=== PATIENT | female | born 1955 | race Caucasian/White ===

== ENCOUNTER 2018-04-28 10:36 | Outpatient (CLI) | payer OTHER, SELFPAY ==
[2018-04-28 11:27] LABS: HCT 46.8 % (36.0-46.0); HGB 15.7 g/dL (12.0-15.5); Mean Corp. HGB Concentration 33.5 g/dL (32.0-36.0); Mean Corpuscular Volume 98.3 fL (80-95); Mean Platelet Volume 9.2 fL (8.0-11.0); Platelet Count 224 x1000/uL (130-400); RBC 4.76 m/cumm (4.00-5.20); RBC Distribution Width 12.7 % (11.7-14.6); White Blood Cell Count 8.71 k/cumm (4.4-10.8)
[2018-04-28 12:31] LABS: PHENYTOIN (DILANTIN) 21.4 ug/mL (10.0-20.0)
[2018-04-28 12:32] LABS: ALT 37 U/L (12-78); AST 35 U/L (15-37); Albumin 4.6 g/dL (3.4-5.0); Alkaline Phosphatase 100 U/L (46-116); Anion Gap 6.5 mmol/L (3-11); BUN 12 mg/dL (7-18); Bilirubin, Total 0.4 mg/dL (0.2-1.0); CO2 33.5 mmol/L (21.0-32.0); CREATININE 0.59 mg/dL (0.55-1.02); Calcium 9.5 mg/dL (8.5-10.1); Chloride 99 mmol/L (98-107); Cholesterol 245 mg/dL (50-200); Glucose 112 mg/dL (70-100); HDL Cholesterol 124 mg/dL (40-60); LDL CHOLESTEROL 98 mg/dL (<100); Potassium 4.4 mmol/L (3.5-5.1); Sodium 139 mmol/L (136-145); Total Protein 8.1 g/dL (6.4-8.2); Triglyceride 75 mg/dL (30-150)
== END 2018-04-28 10:56 ==
PROVIDERS: PCP Nurse Practitioner; Visit Provider Nurse Practitioner
DX: G40.909 Epilepsy, unspecified, not intractable, without status epilepticus (principal); Z51.81 Encounter for therapeutic drug level monitoring; Z79.899 Other long term (current) drug therapy; E78.00 Pure hypercholesterolemia, unspecified
CPT/HCPCS: 36415; 80053; 80061; 83721; 85027; 80185

== ENCOUNTER 2018-05-23 11:32 | Outpatient (CLI) | payer OTHER, SELFPAY ==
--- NOTE | 2018-05-23 09:30 | DI.RAD_ITS ---
SYMPTOM/DIAGNOSIS: COUGH, SOB, LOW 02 SAT, UPPER RESPIRATORY INFECTION, J06.9 PA AND LATERAL CHEST: No priors for comparison. Heart size and pulmonary vasculature are within normal limits. The lungs are hyperinflated consistent with underlying COPD. No focal consolidating infiltrates, effusions or pneumothoraces are identified. On the frontal view, there is an ovoid density projected over the right ninth rib. This may represent a nipple shadow. Lungs are otherwise clear. Degenerative changes are seen in the spine. IMPRESSION: 1. COPD. No acute pulmonary process. 2. Ovoid density seen on the frontal view of the chest which may reflect a nipple shadow. A repeat frontal view of the chest with nipple markers is recommended for further evaluation.
== END 2018-05-23 11:52 ==
PROVIDERS: PCP Nurse Practitioner; Visit Provider Family Medicine
DX: J06.9 Acute upper respiratory infection, unspecified (principal); R05 Cough; R06.02 Shortness of breath; J44.9 Chronic obstructive pulmonary disease, unspecified
CPT/HCPCS: 87449; 71046

== ENCOUNTER 2019-03-20 14:00 | Outpatient (CLI) | payer OTHER, SELFPAY ==
[2019-03-20 14:40] LABS: HCT 42.1 % (36.0-46.0); HGB 13.8 g/dL (12.0-15.5); Mean Corp. HGB Concentration 32.8 g/dL (32.0-36.0); Mean Corpuscular Hemoglobin 32.8 pg (27.0-33.0); Mean Platelet Volume 9.3 fL (8.0-11.0); Platelet Count 212 x1000/uL (130-400); RBC 4.21 m/cumm (4.00-5.20); RBC Distribution Width 12.7 % (11.7-14.6); White Blood Cell Count 7.31 k/cumm (4.4-10.8)
--- NOTE | 2019-03-20 14:50 | DI.RAD_ITS ---
EXAM: XR ABDOMEN FLAT UPRIGHT INDICATION: Abdominal pain, R10.9, abdominal distention/bloating, R14.0. COMPARISON: ABD/PELVIS WO AND W CONTRAST from 10/30/2012 XR CHEST 2V PA AND LATERAL from 05/23/2018 TECHNIQUE: 2D digital imaging was performed. FINDINGS: Hyperinflation is noted at the lung bases. There is no evidence of free air. There is increased sto ol seen in the colon, greatest in the right and transverse colon. There is no small bowel dilatation or gastric dilatation. Vascular calcifications are seen. The liver again appears enlarged. It was noted to be enlarged on a previous CT from 2012. IMPRESSION: Increased quantity of stool. No acute abnormality. Hepatomegaly.
[2019-03-20 15:37] LABS: ALT 37 U/L (14-59); AST 31 U/L (15-37); Albumin 4.2 g/dL (3.4-5.0); Alkaline Phosphatase 95 U/L (46-116); BUN 21 mg/dL (7-18); Bilirubin, Direct 0.06 mg/dL (0.00-0.20); Bilirubin, Total 0.1 mg/dL (0.2-1.0); CREATININE 0.65 mg/dL (0.55-1.02); Calcium 8.6 mg/dL (8.5-10.1); Chloride 105 mmol/L (98-107); Glucose 96 mg/dL (74-106); Lipase 144 U/L (73-393); Potassium 4.5 mmol/L (3.5-5.1); Sodium 143 mmol/L (136-145); Total Protein 7.3 g/dL (6.4-8.2)
== END 2019-03-20 14:20 ==
PROVIDERS: PCP Nurse Practitioner; Visit Provider Nurse Practitioner
DX: R10.9 Unspecified abdominal pain (principal); R14.0 Abdominal distension (gaseous); R16.0 Hepatomegaly, not elsewhere classified; R56.9 Unspecified convulsions; Z51.81 Encounter for therapeutic drug level monitoring
CPT/HCPCS: 36415; 80053; 80076; 83690; 85027; 87338; 74019; 80185

== ENCOUNTER 2019-03-22 02:23 | Outpatient (CLI) | payer OTHER, SELFPAY ==
--- NOTE | 2019-03-22 08:15 | DI.US_ITS ---
EXAM: US ABDOMEN CLINICAL HISTORY: abdominal pain, bloating, abd distension, gaseous TECHNIQUE: Ultrasound abdomen performed using standard protocol. COMPARISON: ABDOMEN ULTRASOUND from 06/02/2009 ABD PELVIS TRANSVAG from 10/02/2012 FINDINGS: LIVER: Normal. There is hepatopetal flow through the portal vein. GALLBLADDER: No evidence of cholelithiasis. No evidence of wall thickening. No pericholecystic fluid identified. KIDNEYS: Kidneys are symmetric in size. No evidence of renal calculi. No evidence of hydronephrosis. No renal mass or cyst identified. BILIARY SYSTEM: Common bile duct measures 3 millimeters. No intrahepatic biliary ductal dilation. BARTLETT'S SIGN: Negative. PANCREAS: Normal where visualized. SPLEEN: Not enlarged. ABDOMINAL AORTA AND IVC: Visualized portions normal caliber. ASCITES: None seen. IMPRESSION: Normal sonographic appearance of the upper abdomen.
== END 2019-03-22 02:43 ==
PROVIDERS: PCP Nurse Practitioner; Visit Provider Nurse Practitioner
DX: R10.9 Unspecified abdominal pain (principal); R14.0 Abdominal distension (gaseous)
CPT/HCPCS: 76700

== ENCOUNTER 2019-03-22 07:30 | Outpatient (REF) | payer OTHER, SELFPAY ==
[2019-03-27 14:41] LABS: Helicobacter pylori Ag, Feces Negative (Negative)
== END 2019-03-22 07:50 ==
LOC: LBN 07:30
PROVIDERS: PCP Nurse Practitioner; Visit Provider Nurse Practitioner
DX: R10.9 Unspecified abdominal pain (principal); R14.0 Abdominal distension (gaseous)
CPT/HCPCS: 87338

== ENCOUNTER → 2020-04-23 02:05 | Outpatient (CLI) | payer OTHER, SELFPAY ==
[2020-04-23 09:02] LABS: HCT 43.1 % (36.0-46.0); HGB 14.6 g/dL (11.2-15.7); MCH 33.1 pg (27.0-33.0); MCHC 33.9 % (32.0-36.0); MCV 97.7 fL (80-95); MPV 9.4 fL (8.0-11.0); Platelet Count 221 10^3/uL (130-400); RBC 4.41 10^6/uL (3.93-5.22); RDW 11.9 % (11.7-14.6); WBC 7.28 10^3/uL (4.4-10.8)
[2020-04-23 09:28] LABS: PHENYTOIN (DILANTIN) 24.2 ug/mL (10.0-20.0)
[2020-04-23 09:29] LABS: Albumin 4.1 g/dL (3.4-5.0); Alkaline Phosphatase 78 U/L (46-116); BUN 14 mg/dL (7-18); Bilirubin, Total 0.4 mg/dL (0.2-1.0); CO2 32.7 mmol/L (21.0-32.0); CREATININE 0.79 mg/dL (0.55-1.02); Calcium 8.7 mg/dL (8.5-10.1); Calculated LDL 91 mg/dL (<100); Chloride 100 mmol/L (98-107); Cholesterol 214 mg/dL (<200); Glucose 123 mg/dL (74-106); HDL Cholesterol 112 mg/dL (40-60); Potassium 4.8 mmol/L (3.5-5.1); Sodium 136 mmol/L (136-145); Total Protein 7.2 g/dL (6.4-8.2); Triglyceride 55 mg/dL (<150)
[2020-04-23 09:30] LABS: ALT 32 U/L (14-59); AST 23 U/L (15-37); Anion Gap 3.3 mmol/L (3-11)
== END ==
PROVIDERS: PCP Nurse Practitioner; Visit Provider Nurse Practitioner
DX: R56.9 Unspecified convulsions (principal); Z13.220 Encounter for screening for lipoid disorders; Z51.81 Encounter for therapeutic drug level monitoring; Z79.899 Other long term (current) drug therapy
CPT/HCPCS: 36415; 80053; 80061; 85027; 80185

== ENCOUNTER 2020-06-03 02:24 | Outpatient (CLI) | payer BC, SELFPAY ==
[2020-06-04 12:45] LABS: COVID-19 RT-PCR UVMMC Result Negative (Negative)
== END 2020-06-03 02:25 | disposition home or self-care (01) ==
LOC: LBO 02:24
PROVIDERS: PCP Nurse Practitioner; Visit Provider Surgery
DX: Z11.52 Encounter for screening for COVID-19 (principal); Z01.818 Encounter for other preprocedural examination
CPT/HCPCS: U0003

== ENCOUNTER 2020-06-06 06:07 | Day surgery (SDC) | payer BC, SELFPAY ==
[2020-06-06 06:20] VITALS: BP 163/95; PULSE 92; RESP 18; TEMP 37; O2SAT 95
[2020-06-06] MEDS: Lactated Ringers 1,000 ML 80 ML IV (06:47)
--- NOTE | 2020-06-06 08:16 | PDOC.DSDIS_ITS ---
Discharge Plan Disposition Patient Disposition: HOME Condition: Good Discharge Details Reason For Visit: colon scope Attending Provider: Jenna Watson Primary Care Provider: Danuta Rosales Home Meds and New Rx's Prescriptions: Continued lisinopril 10 mg tablet 10 mg PO DAILY Qty: 30 RF: 2 lactulose 10 gram/15 mL (15 mL) solution 30 ml PO BID PRN (Reason: constipation) Qty: 600 RF: 3 phenytoin sodium extended [Dilantin Extended] 100 mg capsule See Rx Instructions PO .COMPLEX Qty: 120 RF: 6 Discontinued polyethylene glycol 3350 17 gram/dose powder 238 g PO ONCE Qty: 238 RF: 0 bisacodyl [Dulcolax (bisacodyl)] 5 mg tablet,delayed release (DR/EC) 5 mg PO ONCE Qty: 4 RF: 0 Discharge Instructions Additional Instructions: Findings:diverticula Follow up: repeat scope in 10 yrs time. Please call if you develop: fevers >101.5 Nausea or Vomiting Abdominal pain that is not transient DAY SURGERY UNIT POST COLONOSCOPY INSTRUCTIONS 1. Because there will be medication in your system for the next 24 hours, you may feel a little sleepy. Your coordination will be affected. Therefore: a. Do not drive or operate dangerous equipment for 24 hours. b. Do not drink alcohol beverages for 24 hours (not even beer). c. Plan to go home and rest for the day. 2. Generally there are no restrictions on your activity after a day or so has gone by, but you may feel a bit fatigued for a few days. 3 After you arrive home you may have a light meal and return to a normal diet as you can tolerate it without feeling sick to your stomach. 4. After surgery, you may feel pain or discomfort. This should be only transient, but if it persists please contact your doctor. 5. If there are any questions regarding the findings of your procedure, please f eel free to contact your doctor. 6. If you are unable to contact your doctor with a problem, contact the hospital at [phone]. 7. Continue all your regular medications unless directed otherwise. I understand the above instructions and have no questions. Signature of Patient or Responsible Adult Escort Date/Time Name of Responsible Adult Escort Signature of Nurse Date/Time DIVERTICULAR DISEASE OVERVIEW ? A diverticulum is a pouch-like structure that can form through points of weakness in the muscular wall of the colon (ie, at points where blood vessels pass through the wall). Diverticulosis affects men and women equally. The risk of diverticular disease increases with age. It occurs throughout the world but is seen more commonly in developed countries. WHAT IS DIVERTICULAR DISEASE? Diverticulosis ? Diverticulosis merely describes the presence of diverticula. Diverticulosis is often found during a test done for other reasons, such as flexible sigmoidoscopy, colonoscopy, or barium enema. Most people with diverticulosis have no symptoms and will remain symptom free for the rest of their lives. A person with diverticulosis may have diverticulitis, or diverticular bleeding. Diverticulitis ? Inflammation of a diverticulum (diverticulitis) occurs when there is thinning and breakdown of the diverticular wall. This may be caused by increased pressure within the colon or by hardened particles of stool, which can become lodged within the diverticulum. The symptoms of diverticulitis depend upon the degree of inflammation present. The most common symptom is pain in the left lower abdomen. Other symptoms can include nausea and vomiting, constipation, diarrhea, and urinary symptoms such as pain or burning when urinating or the frequent need to urinate. Diverticulitis is divided into simple and complicated forms. ?Simple diverticulitis, which accounts for 75 percent of cases, is not associated with complications and typically responds to medical treatment without surgery. ?Complicated diverticulitis occurs in 25 percent of cases and usually requires surgery. Complications associated with diverticulitis can include the following: ?Abscess ? a localized collection of pus ?Fistula ? an abnormal tract between two areas that are not normally connected (eg, bowel and bladder) ?Obstruction ? a blockage of the colon ?Peritonitis ? infection involving the space around the abdominal organ ?Sepsis ? overwhelming body-wide infection that can lead to failure of multiple organs Diverticular bleeding ? Diverticular bleeding occurs when a small artery located within a diverticulum is eroded and bleeds into the colon. Diverticular bleeding usually causes painless bleeding from the rectum. In approximately 50 percent of cases, the person will see maroon or bright red blood with bowel movements. Is bleeding with a bowel movement normal? ? It is not normal to see blood in a bowel movement; this can be a sign of several conditions, most of which are not serious (eg, hemorrhoids) but some of which are serious and require immediate treatment. Anyone who sees blood after a bowel movement should consult with their healthcare provider to determine if further testing or evaluation is needed. DIVERTICULOSIS AND DIVERTICULITIS DIAGNOSIS ? Diverticulosis is often found during tests performed for other reasons. ?Barium enema ? This is an x-ray study that uses barium in an enema to view the outline of the lower intestinal tract. This is an older test and has been largely replaced by computed tomography (CT) scan. ?Flexible sigmoidoscopy ? This is an examination of the inside of the sigmoid colon with a thin, flexible tube that contains a camera. ?Colonoscopy ? This is an examination of the inside of the entire colon. ?CT scan ? A CT scan is often used to diagnose diverticulitis and its complications. If diverticulitis (not just diverticulosis) is suspected, the above three tests should not be used because of the risk of perforation. TREATMENT Diverticulosis ? People with diverticulosis who do not have symptoms do not require treatment. However, most clinicians recommend increasing fiber in the diet, which can help to bulk the stools and possibly prevent the development of new diverticula, diverticulitis, or diverticular bleeding. Fiber is not proven to prevent these conditions in all patients but may help to control recurrent episodes in some. Increase fiber ? Fruits and vegetables are a good source of fiber. Fiber content of packaged foods can be calculated by reading the nutrition label. Seeds and nuts ? Patients with diverticular disease have historically been advised to avoid whole pieces of fiber (such as seeds, corn, and nuts) because of concern that these foods could cause an episode of diverticulitis. However, this belief is completely unproven. We do not suggest that patients with diverticulosis avoid seeds, corn, or nuts. Diverticulitis ? Treatment of diverticulitis depends upon how severe your symptoms are. Home treatment ? If you have mild symptoms of diverticulitis (mild abdominal pain, usually left lower abdomen), you can be treated at home with a clear liquid diet and oral antibiotics. However, if you develop one or more of the following signs or symptoms, you should seek immediate medical attention: ?Temperature >100.1?F (38?C) ?Worsening or severe abdominal pain ?An inability to tolerate fluids Hospital treatment ? If you have moderate to severe symptoms, you may be hospitalized for treatment. During this time, you are not allowed to eat or drink; antibiotics and fluids are given into a vein. If you develop an abscess of the colon, you may require drainage of the abscess (usually performed by placing a drainage tube across the abdominal wall) or by surgically opening the affected area. Surgery ? If you develop a generalized infection in the abdomen (peritonitis), you will usually require an emergency operation. A two-part operation may be necessary in some cases. ?The first operation involves removal of the diseased colon and creation of a colostomy. A colostomy is an opening between the colon and the skin, where a bag is attached to collect waste from the intestine. The lower end of the colon is temporarily sewed closed to allow it to heal. ?Approximately three to six months later, a second operation is performed to reconnect the two parts of the colon and close the opening in the skin. You are then able to empty your bowels through the rectum. Sometimes patients require up to a year to recover from the first operation, depending on how sick they were. In non-emergency situations, the diseased area of the colon can be removed and the two ends of the colon can be reconnected in one operation, without the need for a colostomy. Surgery versus medical therapy ? An operation to remove the diseased area of the colon may be necessary if you do not improve with medical therapy. After an episode of uncomplicated diverticulitis, elective surgery is generally not required as the risk of another attack or requiring emergency surgery is low. However, patients with persistent symptoms attributable to diverticulitis, a history of complicated diverticulitis, or a compromised immune system should be evaluated for possible surgery to prevent another attack. In such patients, another attack has been associated with a higher risk of complications or . Of course, the decision will also depend in part upon your other medical conditions and ability to undergo surgery. In many cases, an elective operation can be performed laparoscopically, using small incisions, rather than the typical vertical (up and down) abdominal incision. Laparoscopic surgery usually allows you to recover more quickly and shortens the hospital stay. After diverticulitis resolves ? After an episode of diverticulitis resolves, if you have not had a recent colonoscopy, the entire length of the colon should be evaluated to determine the extent of disease and to rule out the presence of abnormal lesions such as polyps or cancer. Recommended tests include colonoscopy, barium enema and sigmoidoscopy, or CT colonography. Diverticular bleeding ? Most cases of diverticular bleeding resolve on their own. However, some people will need further testing or treatment to stop bleeding, which may include a colonoscopy, angiography (a treatment that blocks off the bleeding artery), bleeding scan, or surgery. DIVERTICULAR DISEASE PROGNOSIS Diverticulosis ? Over time, diverticulosis may cause no problems or it may cause episodes of bleeding and/or diverticulitis. Approximately 15 to 25 percent of people with diverticulosis will develop diverticulitis, while 5 to 15 percent will develop diverticular bleeding. Diverticulitis ? Approximately 85 percent of people with uncomplicated diverticulitis will respond to medical treatment, while approximately 15 percent of patients will need an operation. After successful treatment for a first attack of diverticulitis, one-third of patients will remain asymptomatic, one- third will have episodic cramps without diverticulitis, and one-third will go on to have a second attack of diverticulitis. The prognosis tends to remain similar following a second attack of diverticulitis. Only 10 percent of people remain symptom-free after a second attack. Subsequent attacks tend to be of similar severity, not increasing in severity as previously believed. High Fiber Diet What is Dietary Fiber? All fiber comes from plants, bushes, lydia or trees. Of course, the ones that we eat provide us with fruits, vegetables and grains. There are many different types of fiber but the three that are most important to the health of the body are: Insoluble Fiber This fiber does not dissolve in water, nor is it fermented by the bacteria residing in the colon. Rather, it retains water and in so doing, helps to promote a larger, bulkier and more regular bowel activity. This, in turn, may be important in preventing disorder such as diverticulosis and hemorrhoids, and in sweeping out certain toxins and cancer causing carcinogens. Sources of insoluble fiber are: ? whole grain wheat and other whole grains ? corn bran, including popcorn, unflavored and unsweetened ? nuts and seeds ? potatoes and the skins from most fruits from trees such as apples, bananas and avocados ? many green vegetables such as green beans, zucchini, celery and cauliflower ? some fruit plants such as tomatoes and kiwi Soluble Fiber These fibers are fermented or used by the colon bacteria as a food source or nourishment. When these good bacteria grow and thrive, many health benefits occur in both the colon and the body. Soluble fiber is present in some degree in most edible plant foods, but the ones with the most soluble fiber include: ? legumes such as peas and most beans, including soybeans ? oats, rye and barley ? many fruits such as berries, plums, apples bananas and pears ? certain vegetables such as broccoli and carrots ? most root vegetables ? psyllium husk supplement products Prebiotic Soluble Fiber These are relatively newly discovered soluble plant fibers. The technical name for this fiber is inulin or fructan. When these soluble fibers are fermented by the good colon bacteria, some further significant health benefits have been shown to occur by research in many medical centers. These soluble prebiotic fibers occur in significant amounts in: ? asparagus ? yams ? onions ? garlic ? bananas ? leeks ? agave ? chicory and other root vegetables such as [place] artichokes ? wheat, rye and barley (smaller amounts) Benefits of a High Fiber Diet The health benefits of a high fiber diet, consumed on a regular basis and reaching recommended amounts (below), are now fairly well-defined. There are some additional benefits in the early research stage with the prebiotic soluble fibers. What is now known regarding a high fiber diet include: Bowel Regularity A high fiber diet promotes regularity with a softer, bulkier and regular stool pattern. This decreases the chance of hemorrhoids, diverticulosis and perhaps colon cancer. Cholesterol and Reduced Triglycerides The soluble fibers are the ones that will reduce cholesterol levels when used on a regular basis. Psyllium husk and prebiotic soluble fiber will also reduce cholesterol. They may also reduce the incidence of coronary heart disease. Oats, flax seeds and legumes or beans are the recommended fibers. Colon Polyps and Cancer It is still not certain if a high fiber diet helps prevent colon cancer. Considerable research suggests that this may occur. Certainly it makes sense to increase regularity and so speed the movement of cancer causing carcinogens through the bowel. In addition, reducing a heavy meat diet reduces the bile flow from the liver in a favorable way. This, too, reduces the amount of carcinogens that reach and are manufactured in the colon. Finally, a high fiber diet, including prebiotic soluble fiber, increases the integrity and health of the wall of the colon. The risk of cancer may be reduced. Colon Wall Integrity A high fiber diet changes the bacterial makeup of the colon toward a more favorable balance. For instance, it is known that those people with obesity, diabetes type 2 and inflammatory bowel disease have a predominance of bad bacteria in the colon. This, in turn, may render the bowel wall weak and allow bacteria and, indeed, even toxins to seep through. A high fiber diet with a modest reduction in animal and meat products may return the bacterial makeup to a more positive balance. This, in particular, has been seen when the soluble fiber prebiotics are added to the diet. Blood Sugar Soluble fiber such as in legumes (beans), oats and in prebiotic fibers slows the absorption of blood sugar and so helps regulate the sugar in the blood. Insoluble fiber on a regular basis is associated with reduced risk of type 2 diabetes. Weight Loss High fiber diets are more filling and give a sense of fullness sooner than an animal and meat based diet does. In addition, the soluble prebiotic fibers have been shown to turn off the hunger hormones produced in the wall of the gut and to increase the hormones that give a sense of fullness. Those hormones are made in the wall of the gut. New medical research has shown that the bacterial makeup in the colon in overweight people is abnormal to the extent that they manufacture and absorb almost twice the number of calories through the colon wall as do normals. Prebiotic fibers (below) will help change this hormonal balancein a favorable way. Bacteria and the Function of the Colon The colon finishes the digestive process. Hopefully, the waste products move through in a nice regular manner. Insoluble fibers help this process by retaining water and so producing a bulkier, softer stool, which is easy to pass. The additional role of the colon is to provide a home for an enormous number of micro-organisms, mostly bacteria. Recent research has shown that there are over 1,000 species of bacteria with a total bacterial count ten times the number of cells in the body. These bacteria play a major role in keeping the colon wall itself healthy. In addition, these good bacteria produce a very strong immune sy stem for the body. They significantly increase calcium absorption and bone density. They provide other documented benefits. It is the soluble fibers in the diet that are so effective in stimulating the growth of good colon bacteria. How Much is Enough? The amount of fiber in food is measured in grams. National nutritional authorities recommend the following amounts of dietary fiber daily. Under Age 50 Over Age 50 Men 38 grams 30 grams Women 25 grams 21 grams For a week or so, it is best to tally the amount of fiber you are consuming. Boxed and packaged foods will have the amount of fiber per serving on the nutrition label. Which Fibers and Which Foods are Best? As noted, healthy fiber is only found in plants. The three major categories are whole grains, fruits and vegetables. Whole Grains Wheat, oats, barley, wild or brown rice, amaranth, buckwheat, bulgur, corn, millet, quinoa, rye, sorghum, teff and triticals. By far, wheat, oats and wild or brown rice are most common. Always buy whole grain products. White bread, baked goods and rolls almost always are made from wheat flour. Wheat flour is white because most of the fiber, vitamins and other nutrients have been removed. Try not buy enriched grains. What this means is that simple white flour has had vitamins added to it by the transformation specialist. The word, enriched, implies a good and healthy product. On the contrary, enriched means that most of the fiber has been removed and a few vitamins added. Fruits Fruits come from trees such as apple and pear or from bushes or lydia. You s hould eat a wide variety of fruits, preferably with every meal. In many cases, the skin of a fruit such as apple will contain much of the insoluble fiber while the pulp contains most of the soluble fiber. To the extent possible, buy organic fruits as these will have little or no pesticides. Always wash fruit. Vegetables Eat a wide variety of vegetables. They should be a mainstay of lunch and dinne rs. Frozen vegetables retain as much nutrition and fiber as fresh vegetables. As with fruit, try to buy organic to reduce any residual pesticide ingestion. Wash fresh vegetables thoroughly. Cruciferous vegetables such as broccoli, [place] sprouts and cauliflower contain certain chemicals such as sulforaphane. This substance has very strong anti-cancer properties and should be eaten frequently. Legumes, Beans, Peas and Soybeans These vegetables have plenty of soluble fiber and should be part of a varied vegetable intake. Beans, in particular, contain a certain type of fiber that may lead to harmless gas or bloating. Nuts and Seeds These are rich sources of fiber and are a good substitute for sweets such as candies and baked sweet goods. While nuts and seeds are rich in fiber, they also contain vegetable fat and so can and do add calories. Read the Labels As noted, fresh and frozen foods are usually better. They have good nutrition and few, if any, chemicals added to them. When buying packaged foods and, in particular grains, look for three things: ? The first word on the label should be whole, such as whole wheat or whole grain. ? Check out the calories and the amount of fiber in a serving. ? How many and what other additives or chemicals are added. Fewer is always better. Do you know what each additive does? Some are added not for the benefit of the merchandise buyer but rather for manufacturers. These could and do include sugar, artificial flavor, chemicals to prevent oxidation and spoilage, emulsifiers to blend the product. You have to be a marble polisher hand. Fiber Facts, Nuggets and Pearls ? For breakfast you can easily get the day started well by using a high fiber, whole grain cereal. Check the labels. Add fruit such as blueberries and bananas. If you are an egg eater, use whole wheat or grain toast. Adding wheat germ gives you a good fiber kick. ? Always use whole grain or wheat with rolls and sandwiches. Does your fast food store not have them? Perhaps you look elsewhere. Eating an occasional black weems or veggie burger provides variety. ? Snacks should consist of fruit and/or nuts. While nuts are loaded with fiber, they are an energy rich food, meaning they have a lot of calories in a small packet. ? Fruit juices should contain pulp. Clear juices such as clear orange, pear or apple juice contain little fiber and have a lot of fructose. Prune juice is usually high in fiber. ? Homemade soups ? adding fresh or frozen vegetables to a chicken or vegetable stock is a good way to start homemade soup. ? Salads ? adding cooked and then chilled vegetables provide great flavoring to almost any salad. Remember, a valladares salad has lots of cooked corn in it. Small slices of apples or oranges and nuts such as chopped walnuts or sliced almonds always adds taste, variety and fiber to almost any salad. ? Fruit ? Try to eat fruit of some type with almost every meal. ? Rethink how you place the various foods on your dinner plate. Reducing the portions of the meat or animal food portion to the side with equal or more portions of vegetables, legumes and fruits portion always allows for more fiber. There was never anything magic about making the meat or animal food portion the main part of the dinner plate. Eating from smaller plates can, over time, trick your mind and longterm habit of using a dinner plate. Again, there is nothing magic in an 11, 12, or 13 inch dinner plate. Fiber Supplements There are a variety of fiber supplements available on the food or pharmacy shelves. Psyllium This soluble plant fiber has been used in [place] for over 2,000 years. It is a soluble fiber with mucilage in it. This acts to retain a lot of water and also is fermented by colon bacteria. When 7 grams a day are used, it does lower cholesterol. Metamucil in various forms is psyllium. Methyl Cellulose All the cellulose products come from finely ground wood chips which are then treated in a variety of ways such as boiling in acids. Methyl cellulose is an insoluble fiber which does dissolve in water. It is also an emulsifier, meaning it blends oils and water. Citrucel is methyl cellulose (MC). MC may not be appropriate for Crohn?s disease or ulcerative colitis as several medical studies have shown that certain emulsifiers dissolve the mucous lining of the colon in animals prone to Crohn?s disease. This then allows bacteria to invade the underlying tissue. Inulin Inulin is a soluble prebiotic fiber found in many foods and which are fermented mostly in the left side of the colon. It is available in a supplement as generic inulin and in Fiber Choice. Oligofructose FOS These are also prebiotic fibers. They are fermented very quickly in the right side of the colon. Prebiotin This product is a combination of oligofructose, which feeds the bacteria in the right side of the colon and inulin, which does the same in the left side of the colon. There seems to be a benefit for this particular formula based on medical research. Prebiotic Soluble Fiber These may be the healthiest of all the soluble fibers. They grow in many plants and have had a great deal of research done on them in the last 10-15 years. These fibers are found in asparagus, yams and other root vegetables such as chicory, garlic, onion, leeks and in smaller amounts in wheat. This research has shown the following: ? Increase in good and decrease in bad colon bacteria ? Increase calcium absorption and enhanced bone mass ? Enhanced immune system ? Appetite and weight control by changing the hormone appetite signals to the brain ? May decrease colon cancer incidence ? Reduce or correct a leaky colon Eating a wide variety of plant food up to the recommended amount will likely give you enough prebiotic fiber. Supplements such as Prebiotin can be added to the diet. Short Chain Fatty Acids (SCFA) Some rather remarkable research findings have shown that one of the benefits of ingesting a lot of soluble fiber, in particular the prebiotic ones, results in larger amounts of SCFAs in the colon. These SCFAs are made by the good bacteria in the colon such as Bifidobacter and Lactobacillus. These small molecules have been shown to do the following: ? Enhance the health and integrity of the colon wall ? Provide nourishment for the cells that actually line the colon ? Increases the acidity of the colon which is a very real health benefit ? Stabilize blood sugar for diabetics ? Reduce blood cholesterol and triglyceride ? Significantly enhance immunity ? May be a benefit for Crohn?s disease and ulcerative colitis patients Fiber and Gas Everyone has intestinal gas and that is a good thing. It means that bacteria, hopefully the good ones, are thriving. The normal amount of flatus passed each day depends on sex and what is eaten. The normal number of flatus is 10-20 t imes a day. When the bacteria that make intestinal gases are growing, it also means that other good bacteria are using the same fibers to grow and produce multiple health benefits, including the production of healthy short-chain fatty acids. These substances are produced quietly in the colon and produce many health-related outcomes. Soluble fiber should always be used in a gradual manner. If too much is consumed at any one time, then excess, but harmless, intestinal gas can occur. People with irritable bowel syndrome are particularly prone to bloating and mild cramping. In this instance, soluble fiber in the diet or supplement should be used in small doses and increased gradually. Finally, prebiotic fibers tend to cause the production of short-chain fatty acids which acidify the colon. This, in turn, reduces or stops the growth of bacteria that make the smelly hydrogen sulfide gases that produce noxious flatus. People who consume many vegetables with prebiotics or take a prebiotic fiber supplement often have non-odoriferous flatus. Fiber and Irritable Bowel Syndrome Irritable bowel syndrome (IBS) is one of the most common disorders of the lower digestive tract. The symptoms of IBS can be quite varied. They can be a mix of several symptoms such as constipation, diarrhea, crampy abdominal discomfort, bloating and gas. An attack of IBS can be triggered by emotional tension and anxiety, poor dietary habits and certain medications. It is now known that infections in the intestine can lead to long-term IBS symptoms. Increased amounts of fiber in the diet can help relieve the symptoms of irritable bowel syndrome by producing soft, bulky stools. This helps to normalize the time it takes for the stool to pass through the colon. Recent medical research with newer techniques has shown some surprising and dramatic findings for IBS patients. Specifically, there is a very significant and abnormal shift of bacteria from those that provide health benefits to those bad bacteria that we really do not want in the gut. The technical name for this bad group of bacteria is called Firmicutes. Along with this abnormal bacterial collection, there is a smoldering low-grade inflammation in the gut wall that may contribute to symptoms. The goal for IBS patients should be to gradually increase the soluble dietary fibers in the diet so as to promote the growth of good bacteria and so suppress the bad ones along with the associated inflammation. IBS patients need to be careful of the amount of soluble fiber they consume. The reason for this is that, while the good colon bacteria thrive on these fibers and produce health benefits, other gas-forming bacteria may generate excessive but harmless gas and subsequent bloating. Thus, soluble plant fibers or a dietary prebiotic supplement should be taken in small initial doses and then gradually increased to tolerance. Fiber and Colon Polyps/Cancer Colon cancer is a major health problem. This disease is most common in Western cultures. It is not seen very often in rural cultures where the diet is mostly plant based. Usually, colon cancer starts out as a colon polyp, a benign mushroom-shaped growth. In time it grows, and in some people it becomes cancerous. Colon cancer is usually always curable if polyps are removed when found or if surgery is performed at an early stage. It is now known that people can inherit the risk of developing colon cancer, but diet is important, too. As noted, there is a very low rate of colon cancer in residents of countries where grains are unprocessed and retain their fiber. It seems that in the Western world, cancer-containing agents (carcinogens) remain in contact with the colon wall for a longer time and in higher concentrations. So, a large bulky stool may act to dilute these carcinogens by moving them through the bowel more quickly. Less carcinogenic exposure to the colon may mean fewer colon polyps and less cancer. A very current review of the entire world?s literature on the effect of fiber on colon polyps and cancer prevention has shown rather clearly that for every 10 grams of fiber added to the diet, there is a 10% reduction in incidence of colon cancer. So the recommended 30 gram fiber diet would result in a 30% less chance of getting these tumors. There are also substances produced in the colon by the good bacteria that seem to retard certain pre-cancer factors from developing. They are called short- chain fatty acids (SCFA). See above for description of SCFAs. A high fiber diet increases these substances. So, the combination of dietary fiber and the production of short-chain fatty acids have a clear health benefit. Fiber and Diverticulosis Prolonged, vigorous contraction of the colon over a long period of time may result in diverticulosis. This increased pressure causes small and, eventually, larger ballooning pockets to form. These pockets by themselves cause no problem. However, sometimes they become infected (diverticulitis) or even break open (perforate) causing infection or inflammation within the abdomen (peritonitis). A high fiber diet increases the bulk in the stool and thereby reduces the pressure within the colon. By so doing, the formation of pockets may be reduced or possibly even stopped. In the past, many physicians were fearful that seeds as in tomatoes, nuts or berries were harmful and could get inside these pockets and rattle around, causing damage. We now know that this has never been the case and that these foods contain lots of fiber and are actually beneficial for diverticulosis patients. Certain bulking agents such as psyllium are traditional types of bulk producing supplements. Psyllium is a soluble fiber. Combining it with insoluble fiber as in wheat bran or corn bran (no gluten) can enhance this bulking effect even more. A product containing a prebiotic, psyllium and wheat bran is probably a very good combination for bowel regularity. Prebiotin Regularity/Diverticulosis is one such product. Activity:: no lifting over 10#'s or strenuous activity x 24 hrs Diet:: small light meals x 24 hrs Discharge Orders Discharge Orders: Discharge Order (Routine); Ordered 06/06/20 Ordered By: Jenna Watson DS: Diagnosis Discharge Diagnosis (1) Diverticula of colon: Status: Acute
--- NOTE | 2020-06-06 08:16 | W.COLOREPORT ---
Date of service: 06/06/20 Time of Service: 08:17 Colonoscopy Report Date of procedure: 06/06/20 Pre-op diagnosis general: screen Post-op diagnosis procedure note: other (divertic) Surgeon: Jenna Watson Anesthesia proc note operative: GETA Estimated blood loss (mL): 0 Pathology: none sent Complications: None Disposition: same day Prep: Miralax/Dulcolax Retraction Time: 8mins Procedure Description: After informed consent was obtained the patient was taken to the procedure room and placed in a left decubitous position. Monitors were applied and a time out was done. The patients name, date of , procedure, allergies to medications and metal in their body was reviewed. The patient was then sedated. Once sedated and comfortable a rectal exam was done. External exam was normal. Internal exam revealed a normal sphincter tone and no palpable masses. The scope was then introduced and retrofelexed. no internal hemorrhoids were identified. The scope was then advanced to the cecum difficulty. The TI and appendiceal orifice were identified. The prep was w/out. The scope was then slowly retracted over 8 minutes back into the rectum. Polyps were removed at . She has a few small diverticula confined to the sigmoid colon. There is no signs of active bleeding or infection. There is no AVMs or polyps apparent. The scope was removed and the patient was woken up and taken back to Same day surgery in stable condition. The patient tolerated the procedure well and there were no immediate complications. Follow up: The patient should follow up in 10 years unless they develop changes in bowel habits or other new gastrointestinal complaints.
[2020-06-06 08:50] VITALS: BP 144/75; PULSE 64; RESP 16; TEMP 36.6; O2SAT 95
== END 2020-06-06 09:15 | disposition home or self-care (01) ==
PROVIDERS: PCP Nurse Practitioner; Visit Provider Surgery
PROC: 0DJD8ZZ Inspection of Lower Intestinal Tract, Via Natural or Artificial Opening Endoscopic (ICD-10-PCS; CPT 45378; principal; 2020-06-06 07:30)
DX: Z12.11 Encounter for screening for malignant neoplasm of colon (principal); K57.30 Diverticulosis of large intestine without perforation or abscess without bleeding; Z80.0 Family history of malignant neoplasm of digestive organs; I10 Essential (primary) hypertension
CPT/HCPCS: 45378

== ENCOUNTER 2020-08-07 01:56 | Outpatient (CLI) | payer BC, SELFPAY ==
[2020-08-08 17:44] LABS: COVID-19 RT-PCR UVMMC Result Negative (Negative)
== END 2020-08-07 01:57 | disposition home or self-care (01) ==
LOC: LBO 01:56
PROVIDERS: PCP Nurse Practitioner; Visit Provider Nurse Practitioner
DX: Z20.822 Contact with and (suspected) exposure to COVID-19 (principal)
CPT/HCPCS: U0003

== ENCOUNTER 2021-05-24 14:00 | Emergency (ER) | payer BC, SELFPAY ==
[2021-05-24] VITALS (35 sets, daily range): BP systolic 133–168; BP diastolic 64–139; PULSE 76–93; RESP 16–20; TEMP 36.9–37.1; O2SAT 95–97
--- NOTE | 2021-05-24 14:15 | DI.CT_ITS ---
Exam(s) CT ABDOMEN PELVIS W EXAM: CT ABDOMEN PELVIS W CLINICAL HISTORY: abd pain and distention. TECHNIQUE: Imaging Protocol: Axial computed tomography images with coronal and sagittal reformatted images were created and reviewed CONTRAST MATERIAL: Intravenous: Omnipaque 80cc Oral: None COMPARISON: US ABDOMEN ULTRASOUND from 06/02/2009 US ABD PELVIS TRANSVAG from 10/02/2012 FINDINGS: VISUALIZED LUNG BASES: No nodules nor pleural effusions evident. ABDOMEN: There is no ascites. LIVER: Mildly prominent in size. No steatosis. No focal lesions evident. GALLBLADDER/BILIARY: No obvious gallbladder pathology. Mild dilatation of the CBD above the pancreat ic head. No calculi therein. PANCREAS: No evidence of pancreatic mass nor dilatation of the pancreatic duct. SPLEEN: Spleen is not enlarged. No obvious intrasplenic lesions. Splenic and portal veins are paten t. ADRENALS: Right adrenal gland unremarkable. Diffuse enlargement and haziness of the left adrenal gla nd. KIDNEYS:Bilateral extrarenal pelves, more prominent on the right side. No renal cysts nor solid matthew l masses evident.. Small calculi are seen in both kidneys. No true hydronephrosis nor hydroureter. No calculi in the urinary bladder. ABDOMINAL AORTA: Calcified but not enlarged. Common iliac arteries are calcified but not enlarged. External iliac arteries are also heavily calcified. Same for the common femoral arteries. LYMPH NODES:There is no retroperitoneal nor paraaortic adenopathy. ABDOMINAL WALL: No evidence of significant anterior abdominal wall nor inguinal hernia. GI: There is no evidence of bowel obstruction, free air, nor abscess. PELVIS: GI: No evidence of appendicitis.No evidence of sigmoid diverticulitis. LYMPH NODES: There is no intrapelvic nor inguinal adenopathy. REPRODUCTIVE: The uterus is surgically absent. There are no abnormal adnexal masses nor free fluid. URINARY BLADDER: Uniformly thickened bladder wall. OSSEOUS: No significant osseous lesions. Advanced disc space narrowing at L4-5 level. No listhesis. No significant osseous lesions. IMPRESSION: 1. Small calculi are seen in both kidneys. No evidence of calculi in the ureters and none in the uri nary bladder. 2. Mild dilatation of the CBD. No obvious calculus therein. No pancreatic head mass evident and no dilatation of the pancreatic duct. 3. Uterus is surgically absent. 4. Mild hepatomegaly. No focal hepatic lesions. RADIATION DOSE DELIVERED: 460.2mGy.cm Total DLP DATA REPOSITORY: All CT scans at this facility are submitted to the National Radiology Data Registry (NRDR) Dose Index Registry (DIR) with the [employer] (ACR). RADIATION OPTIMIZATION: All CT scans at this facility use at least one of these dose optimization te chniques: automated exposure control; mA and/or kV adjustment per patient size (includes targeted exa ms where dose is matched to clinical indication); or iterative reconstruction.
[2021-05-24] MEDS: Normal Saline 1,000 ML 1000 ML IV (14:54)
[2021-05-24 14:56] LABS: Abs Immature Grans 0.03 10^3/uL (0.0-0.06); Absolute Basophil Count 0.06 10^3/uL (0.0-0.2); Absolute Eosinophil Count 0.08 10^3/uL (0.0-0.7); Absolute Lymphocyte Count 1.81 10^3/uL (1.2-3.4); Absolute Monocyte Count 0.65 10^3/uL (0.1-0.8); Absolute Neutrophil Count 5.01 10^3/uL (1.2-6.7); Basophils % 0.8; HCT 39.5 % (36.0-46.0); HGB 13.1 g/dL (11.2-15.7); Immature Grans % 0.4; Lymphocytes % 23.7; MCH 33.2 pg (27.0-33.0); MCHC 33.2 % (32.0-36.0); Monocytes % 8.5; Neutrophils % 65.6; Nucleated RBC 0 %; Platelet Count 216 10^3/uL (130-400); RBC 3.95 10^6/uL (3.93-5.22); RDW 11.9 % (11.7-14.6); RDW-SD 44.3 fL; WBC 7.64 10^3/uL (4.4-10.8)
[2021-05-24 15:07] LABS: Lipase 102 U/L (73-393)
[2021-05-24 15:10] LABS: ALT 33 U/L (14-59); AST 24 U/L (15-37); Alkaline Phosphatase 76 U/L (46-116); Anion Gap 5.1 mmol/L (3-11); BUN 19 mg/dL (7-18); Bilirubin, Total 0.2 mg/dL (0.2-1.0); CO2 31.9 mmol/L (21.0-32.0); CREATININE 0.8 mg/dL (0.55-1.02); Calcium 8.9 mg/dL (8.5-10.1); Chloride 99 mmol/L (98-107); Glucose 142 mg/dL (74-106); Potassium 4.3 mmol/L (3.5-5.1); Sodium 136 mmol/L (136-145); Total Protein 7.1 g/dL (6.4-8.2)
--- NOTE | 2021-05-24 15:31 | ED.GENADUL_ITS ---
Discharge Plan Disposition Patient Disposition: HOME Condition: Stable Discharge Details Clinical Impression: Abdominal pain, Diverticulosis of colon Primary Care Provider: Danuta Rosales ED Provider: Tamanna Wellington Home Meds and New Rx's Prescriptions: No Action phenytoin sodium extended [Dilantin Extended] 100 mg capsule See Rx Instructions PO .COMPLEX Qty: 120 RF: 12 lisinopril 20 mg tablet 20 mg PO DAILY Qty: 30 RF: 12 Discharge Instructions Instructions: Diverticulitis Diet (ED), Abdominal Pain (ED) Additional Instructions: The CT scan showed a dilation of the common bile duct. There is also some colonic diverticulosis. Also had some moderate constipation. Please follow-up with your primary care provider on Tuesday regarding these results to schedule an outpatient test called MRCP. Clear liquids for the next 48 to 72 hours and then advance to a bland diet as tolerated. Bananas rice apples toast daily from anything fried, fatty and dairy. Follow up with primary care provider in 3-5 days. Return to ED sooner if any worsening or concerns. Increase oral fluids. Referrals: Danuta Rosales NP [Primary Care Provider] - 5 days (Possible need for outpatient MRCP) Discharge Data Discharge Date/Time-TO BE ENTERED AT DEPARTURE: 05/24/21 16:39 Medical Decision Making <Carlos A Wolfe NP - Last Filed: 05/25/21 09:32> Patient presenting to the emergency department for chief complaint of abdominal pain. Patient states this has been ongoing for years but has had acute worsening for the past couple days. She states associated diarrhea and abdominal bloating that occurs after eating. She denies any fever chills, chest pain, difficulty breathing, or other symptoms. Physical exam shows slightly distended abdomen with diffuse nonfocal tenderness and guarding to the right lower quadrant and the left upper quadrant. Bowel sounds are hyperactive. Plan to check labs and CT image patient's abdomen. Patient is refusing pain medication at this time and states that she would rather just have work p erformed with no medication. 1515 -review of labs is reassuring with no emergent findings noted. Patient pending CT imaging. Patient continuing to refuse pain medication when reassessed. 1600- patient has had CT imaging performed and pending results. pt remains in stable condition. <Tamanna Wellington - Last Filed: 05/24/21 18:31> Care assumed from provider (Niall Wolfe NP) Please see their initial HPI, PE, and documentation. Discussed patient details and case and pending workup and disposition. Patient is hemodynamically stable, and alert and oriented. CT abdomen pelvis: IMPRESSION: 1. Nonspecific dilation of the distal CBD measuring up to 9 mm. Consider correlation with MRCP if clinically warranted. 2. Urinary bladder findings most probably related to partial under distension. Consider mild cystitis in the appropriate clinical setting. 3. Bloating and moderate constipation without bowel obstruction. 4. No other acute abdominopelvic pathology is identified. 5. Incidental findings as detailed above. Thank you for allowing us to participate in the care of your patient. Dictated and Authenticated by: Melvin Shields MD Discussed results with patient who verbalizes understanding. Patient does have a history of diverticulosis. Patient does have a primary care provider Danuta Rosales placed on a care management list for follow-up within the next week regarding the MRCP. Patient is alert and oriented ambulatory in no acute distress in the room. I did discuss diet and home care, verbalized u nderstanding. HPI <Carlos A Wolfe NP - Last Filed: 05/25/21 09:32> General Mode of arrival: ambulatory . Date/Time Provider Initiated Documentation: 05/24/21 14:01 . Limitations to Documentation: no limitations . Information obtained by: patient . History of Present Illness 66 year old F presents to the emergency department with the chief complaint of Abdominal pain, with intensity rated at 9. Quality is described as aching, and is localized to the abdomen. Patient reports no radiation. Patient started experiencing this year(s) (With worsening over the last 2 days) and it has been constant. No relieving factors improve symptom(s), Eating worsens symptoms . Patient notes nausea/vomiting. Patient did receive the following treatments prior to arrival, none Related Data Home Medications Medication Instructions Recorded Confirmed Dilantin Extended 100 mg capsule See Rx Instructions PO .COMPLEX 06/10/20 05/24/21 #120 cap NS lisinopril 20 mg tablet 20 mg PO DAILY #30 tab 06/10/20 06/10/20 Previous Rx's Medication Instructions Recorded Dilantin Extended 100 mg capsule See Rx Instructions PO .COMPLEX 06/10/20 #120 cap NS lisinopril 20 mg tablet 20 mg PO DAILY #30 tab 06/10/20 Allergies Allergy/AdvReac Type Severity Reaction Status Date / Time tetracycline Allergy Mild Rash Verified 05/24/21 14:10 cephalexin monohydrate Allergy Unknown Verified 05/24/21 14:10 [From Keflex] General Stated Complaint: Abd Prob JEANNINE: 3 Review of Systems <Cralos A Wolfe NP - Last Filed: 05/25/21 09:32> Constitutional Constitutional: Denies chills, Denies fever(s) and Reports poor appetite Cardiovascular Cardiovascular: Denies chest pain and Denies dyspnea Respiratory Respiratory: Denies cough and Denies dyspnea Gastrointestinal Gastrointestinal: Reports as per HPI, Reports abdominal pain, Denies melena, Reports bloating, Denies hematochezia, Denies change in bowel habits, Denies constipation, Reports cramping, Denies heartburn, Reports diarrhea, Reports nausea and Denies vomiting Genitourinary Genitourinary: Denies hematuria, Denies urinary incontinence, Denies urinary hesitancy and Denies urinary urgency Integumentary/Breasts Skin/Breast: Denies rash PFSH <Carlos A Wolfe NP - Last Filed: 05/25/21 09:32> All Active Problems (Updated 05/24/21 @ 16:29 by Tamanna Wellington) Abdominal pain (Acute) Diverticulosis of colon (Acute) Lipoma of right lower extremity (Acute) Fatigue (Acute) Feels cold (Acute) Smoker (Acute) Lung cancer screening declined by patient (Acute) Vaccine refused by patient (Acute) Diverticula of colon (Acute) Abdominal pain (Acute) Abdominal distention (Acute) Screening for cholesterol level (Acute) Colon cancer screening (Acute) Abdominal bloating (Acute) Mammogram declined (Acute) Family history of colon cancer (Acute) Essential hypertension (Acute) Macrocytosis (Chronic 02/18/14) B12 NL 2009 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 states I had abnormal blood vessels, i had 2 seizues which was 20 years ago and johnie been dilantin every since, and havent had a seizre History of colonoscopy (~06/06/20) Hx of elbow surgery Hx of shoulder surgery Family History Mother Angina pectoris Father Dementia Angina pectoris Social History Smoking/Tobacco Use Status: Current every day Smoking risk assessment performed?: Yes Alcohol Intake: current Alcohol Intake frequency: 3 or more drinks per day Alcohol type: beer Drug use: Never Substance use type: does not use Household members: spouse Number of Children: 4 What is your relationship status?: Panel score (0-1 are the most socially isolated patients): 1 Do you feel safe at home: Yes Do you feel safe in your relationship?: Yes Exam <Carlos A Wolfe NP - Last Filed: 05/25/21 09:32> Const General: cooperative Orientation: alert, awake and oriented x3 Resp Effort & Inspection: normal respiratory effort and able to speak in complete sentences Auscultation: clear to auscultation bilaterally Cardio Rate: regular rate Rhythm: regular rhythm Heart Sounds: S1 normal and S2 normal GI Palpation: soft, no hepatosplenomegaly, not firm, guarding in the RLQ and in the LUQ, no masses, no pulsatile masses, not rigid, no splenomegaly and tender other (difuse) Auscultation: hyperactive bowel sounds Back/Spine/Pelvis Back: no CVA tenderness Neuro General: patient alert, patient awake, patient oriented x3, gait normal and moves all extremities Course <Carlos A Wolfe NP - Last Filed: 05/25/21 09:32> Vital Signs Vital signs: Vital Signs Temperature 37.1 C 05/24/21 14:04 Pulse 93 H 05/24/21 14:04 Respiratory Rate 16 05/24/21 14:04 Blood Pressure 168/67 H 05/24/21 14:04 Pulse Oximetry 97 05/24/21 14:04 Temperature 37.1 C 05/24/21 14:04 Temperature Source Tympanic 05/24/21 14:04 Pulse 93 H 05/24/21 14:04 Respiratory Rate 16 05/24/21 14:04 Respiratory Effort 05/24/21 14:12 Blood Pressure 168/67 H 05/24/21 14:04 Blood Pressure Position Supine 05/24/21 14:04 Pulse Oximetry 97 05/24/21 14:04 Oxygen Delivery Method Room Air 05/24/21 14:04 Oxygen Flow Rate 0 05/24/21 14:04 Pain Level 9 05/24/21 14:04 Lab/Test Results Lab/Test Results: Laboratory Tests Range/Units 05/24/21 05/24/21 05/24/21 14:48 14:48 14:48 WBC (4.4-10.8) 10^3/uL 7.64 RBC (3.93-5.22) 10^6/uL 3.95 Hgb (11.2-15.7) g/dL 13.1 Hct (36.0-46.0) % 39.5 MCV (80-95) fL 100.0 H MCH (27.0-33.0) pg 33.2 H MCHC (32.0-36.0) % 33.2 RDW (11.7-14.6) % 11.9 Plt Count (130-400) 10^3/uL 216 MPV (8.0-11.0) fL 9.0 Immature Gran % 0.4 Neutrophils % 65.6 Lymphocytes % 23.7 Monocytes % 8.5 Eosinophils % 1.0 Basophils % 0.8 Nucleated RBC % % 0 Absolute Neutrophils (1.2-6.7) 10^3/uL 5.01 Absolute Lymphocytes (1.2-3.4) 10^3/uL 1.81 Absolute Monocytes (0.1-0.8) 10^3/uL 0.65 Absolute Eosinophils (0.0-0.7) 10^3/uL 0.08 Absolute Basophils (0.0-0.2) 10^3/uL 0.06 Sodium (136-145) mmol/L 136 Potassium (3.5-5.1) mmol/L 4.3 Chloride (98-107) mmol/L 99 Carbon Dioxide (21.0-32.0) mmol/L 31.9 Anion Gap (3-11) mmol/L 5.1 BUN (7-18) mg/dL 19 H Creatinine (0.55-1.02) mg/dL 0.8 Estimated GFR/1.73 m2 (mL/min/1.73m2) >= 60.00 Glucose (74-106) mg/dL 142 H Calcium (8.5-10.1) mg/dL 8.9 Magnesium (1.8-2.4) mg/dL 2.0 Total Bilirubin (0.2-1.0) mg/dL 0.2 AST (15-37) U/L 24 ALT (14-59) U/L 33 Alkaline Phosphatase (46-116) U/L 76 Total Protein (6.4-8.2) g/dL 7.1 Albumin (3.4-5.0) g/dL 4.0 Lipase (73-393) U/L 102 Sign Out <Carlos A Wolfe NP - Last Filed: 05/25/21 09:32> Sign Out Data: Sign Out Comment: Patient pending CT imaging results and disposition based upon those results. Last updated by Carlos A Wolfe NP at 05/24/21 16:10 PAWSS <Carlos A Wolfe NP - Last Filed: 05/25/21 09:32> Have you Been Recently Intoxicated or Drunk Within the Last 30 days?: No Have you Ever Experienced Previous Episodes of Alcohol Withdrawal?: No Have you ever Experienced Withdrawal Seizures?: No Have you ever Experienced Delirium Tremens(DT)s?: No Have you ever undergone Alcohol Rehabilitation Treatment (i.e, inpt ot outpatient treatment programs)?: No Have you ever Experienced Blackouts?: No Have you ever Combined Alcohol with other Downers within the last 90 days?: No Have you ever Combined Alcohol with any other Substance of Abuse during the last 90 days?: No Positive Blood Alcohol level on Presentation? [PCS.BAL]: No Evidence of Increased Autonomic Activity (i.e. HR>120, tremor, sweating, agitation, nausea)?: No Result: 0
--- NOTE | 2021-05-24 15:40 | SUR.PHASEI ---
Pt in CT at present.
[2021-05-24] MEDS: Omnipaque 350 MG/ML 100 ML BTL IV (16:00)
[2021-05-24] MEDS: Normal Saline Flush 10 ML SYR IVP (16:01)
--- NOTE | 2021-05-24 16:16 | DI.VRAD_ITS ---
PROCEDURE INFORMATION: Exam: CT Abdomen And Pelvis With Contrast Exam date and time: 05/24/2021 2:30 PM Age: 66 years old Clinical indication: Other: Abd pain and distention TECHNIQUE: Imaging protocol: Computed tomography of the abdomen and pelvis with contrast. Radiation optimization: All CT scans at this facility use at least one of these dose optimization techniques: automated exposure control; mA and/or kV adjustment per patient size (includes targeted exams where dose is matched to clinical indication); or iterative reconstruction. Contrast material: OMNIPAQUE 350; Contrast volume: 80 ml; Contrast route: INTRAVENOUS (IV); COMPARISON: US ABDOMEN 03/22/2019 8:39 AM FINDINGS: Lungs: Visualized lung bases are clear. Diaphragm: A small hiatal hernia is present. Liver: There is enlargement of the liver, measuring 18 cm. The liver is otherwise unremarkable. Gallbladder and bile ducts: Dilation to the distal CBD measuring 9 mm. No radiopaque intraluminal filling defects appreciated within the CBD. Minimal intrahepatic biliary ductal dilation. Gallbladder is unremarkable. Pancreas: Normal. No ductal dilation. Spleen: Normal. No splenomegaly. Adrenal glands: There is diffuse bilateral adrenal enlargement, nonspecific but most likely related to acute illness or senile in etiology. Kidneys and ureters: There are multiple right renal collecting system calcifications. There are multiple left renal collecting system calcifications. Bilateral extrarenal pelvises. The kidneys are otherwise unremarkable. The ureters are normal. Stomach and bowel: Diffusely air-filled bowel. No bowel wall thickening. Diffuse colonic diverticulosis. There is excessive colonic stool content. Appendix: A normal appendix is identified. Intraperitoneal space: No free fluid, fluid collections, or pneumoperitoneum. Retroperitoneal space: No acute abnormalities in the retroperitoneal space. Vasculature: The vasculature demonstrates diffuse marked atherosclerotic calcification. Lymph nodes: No retroperitoneal, pelvic, or mesenteric adenopathy. Urinary bladder: Mild urinary bladder wall thickening, most probably related to partially under distended state. Reproductive: There has been a hysterectomy. Bones/joints: No acute skeletal pathology. Mild multilevel degenerative changes of the spine, as manifested by multilevel anterior osteophytes and multilevel decrease in intervertebral disc space. Soft tissues: No acute body wall soft tissue findings. IMPRESSION: 1. Nonspecific dilation of the distal CBD measuring up to 9 mm. Consider correlation with MRCP if clinically warranted. 2. Urinary bladder findings most probably related to partial under distension. Consider mild cystitis in the appropriate clinical setting. 3. Bloating and moderate constipation without bowel obstruction. 4. No other acute abdominopelvic pathology is identified. 5. Incidental findings as detailed above. Dictated and Authenticated by: Melvin Hamilton MD. Ordering:GAGE Strauss MD
--- NOTE | 2021-05-24 16:32 | NUR.NOTE ---
Nursing Note: PT INFO GIVEN TO CARE MANAGEMENT FOR FOLLOW UP WITHIN A WEEK TO BE SEEN BY HER PCP FOR AN MRCP. MICHAELA, ED
== END 2021-05-24 16:39 | disposition home or self-care (01) ==
PROVIDERS: Nurse Practitioner Family; Emergency Provider Registered Nurse Emergency; PCP Nurse Practitioner
DX: R10.9 Unspecified abdominal pain (principal); K57.32 Diverticulitis of large intestine without perforation or abscess without bleeding
CPT/HCPCS: 36415; 80053; 83690; 96360; 99285; 74177; 83735; 85025; 99283; J3490

== ENCOUNTER 2021-05-27 13:07 | Outpatient (REF) | payer BC, SELFPAY ==
--- NOTE | 2021-05-27 11:18 | PAPNONF_PTH ---
PATIENT: Barby Dugan LOC: [facility] U#:[id number] AGE/SX: 66/F ROOM: RE05/27/[address]: Danuta Rosales APRN : 1955 BED: DIS: 05/27/2021 SPEC #: [id number] RECD: 05/27/21 17:32 STATUS: JUANITA REVicki #: [id number] SARAH: 05/27/21 11:[address]: Danuta Rosales DEPT: [facility] Cytology RECD BY: Makenna Tylre Tissues: 1 - BODY FLUID CYTO(SPUTUM/URINE)UV Procedures: BODY FLUID CYTO(URINE/SPUTUM) Comments: [id number] (TOTAL VOLUME = 80 ml) (40 ml URINE & 40 ml CYTOLYT ADDED IN 2 CONTAINERS)
== END 2021-05-27 13:08 | disposition home or self-care (01) ==
LOC: LBN 13:07
PROVIDERS: PCP Nurse Practitioner; Referring Provider Nurse Practitioner; Visit Provider Nurse Practitioner
DX: N32.89 Other specified disorders of bladder (principal)
CPT/HCPCS: 87086; 88104

== ENCOUNTER 2021-06-02 00:22 | Outpatient (CLI) | payer BC, SELFPAY ==
--- NOTE | 2021-06-02 06:49 | DI.MRI_ITS ---
Exam(s) MR ABDOMEN WO EXAM: MR ABDOMEN WO CLINICAL HISTORY: abdominal pain, dilated CBD,r10.9,k83.8 TECHNIQUE: Multiplanar multisequence MRA of the Abdomen was performed. COMPARISON: CT CT ABDOMEN PELVIS W from 05/24/2021 FINDINGS: Liver: Note is made of a 1.1 cm simple cyst associated with the left lobe of the liver. No follow-up is recommended. No solid hepatic masses identified. Pancreas: Unremarkable. Gallbladder and Bile Ducts: Unremarkable. There is mild smooth dilatation of the mid common bile duct up to 9 mm. No intraluminal mass is identified. The common hepatic duct measures up to [address] Adrenals: The right adrenal gland is unremarkable. There is stable unremarkable enlargement of the l eft adrenal gland. No discrete mass is seen. Kidneys: Unremarkable. Spleen: Unremarkable. Bowel: There is diverticulosis seen in the sigmoid colon. No evidence of acute diverticulitis. Aorta: Unremarkable. No evidence of an aneurysm. Soft Tissues: Unremarkable. Bone: There is a diffuse disc bulge at L3-L4 causing [id number] central spinal canal stenosis. Lymph Nodes: Unremarkable. IMPRESSION: 1. Mild dilatation of the mid common bile duct up to 9 mm. No intraluminal mass is identified. 2. No evidence of a pancreatic mass is seen. No intrahepatic biliary ductal dilatation is present. 3. If further imaging is warranted an ERCP should be considered. 4. Degenerative disc disease at L3-L4 causing [id number] central spinal canal stenosis. DATA REPOSITORY:
== END 2021-06-02 00:42 ==
PROVIDERS: PCP Nurse Practitioner; Visit Provider Nurse Practitioner
DX: K83.8 Other specified diseases of biliary tract (principal); R10.12 Left upper quadrant pain; K76.89 Other specified diseases of liver; R14.0 Abdominal distension (gaseous)
CPT/HCPCS: 74181

== ENCOUNTER 2021-09-23 10:44 | Outpatient (REF) | payer BC, SELFPAY | END 2021-09-23 10:45 | disposition home or self-care (01) | LOC: LBN 10:44 | PROVIDERS: PCP Nurse Practitioner; Visit Provider Internal Medicine | DX: J40 Bronchitis, not specified as acute or chronic (principal) | CPT/HCPCS: 87070; 87205 ==

== ENCOUNTER 2022-02-10 09:08 | Outpatient (REF) | payer BC, SELFPAY | END 2022-02-10 09:09 | disposition home or self-care (01) | LOC: LBN 09:08 | PROVIDERS: PCP Nurse Practitioner; Visit Provider Nurse Practitioner | DX: R30.0 Dysuria (principal) | CPT/HCPCS: 87086 ==

== ENCOUNTER 2022-02-24 03:28 | Outpatient (CLI) | payer BC, SELFPAY ==
[2022-02-24 07:43] LABS: HCT 40.5 % (36.0-46.0); HGB 13.4 g/dL (11.2-15.7); MCH 33.4 pg (27.0-33.0); MCHC 33.1 % (32.0-36.0); MCV 101 fL (80-95); MPV 8.9 fL (8.0-11.0); Platelet Count 208 10^3/uL (130-400); RBC 4.01 10^6/uL (3.93-5.22); RDW 12.1 % (11.7-14.6); RDW-SD 45.6 fL; WBC 8.43 10^3/uL (4.4-10.8)
[2022-02-24 08:54] LABS: ALT 34 U/L (14-59); AST 27 U/L (15-37); Alkaline Phosphatase 88 U/L (46-116); Anion Gap 2.6 mmol/L (3-11); BUN 19 mg/dL (7-18); Bilirubin, Total 0.3 mg/dL (0.2-1.0); CO2 34.4 mmol/L (21.0-32.0); CREATININE 0.7 mg/dL (0.55-1.02); Calcium 8.9 mg/dL (8.5-10.1); Calculated LDL 88 mg/dL (<100); Chloride 98 mmol/L (98-107); Cholesterol 220 mg/dL (<200); Estimated GFR 95.92 (mL/min/1.73m2); Glucose 105 mg/dL (74-106); HDL Cholesterol 122 mg/dL (40-60); Potassium 4.5 mmol/L (3.5-5.1); Sodium 135 mmol/L (136-145); TSH (W/Ref FT4) 1.52 uIU/mL (0.36-3.74); Total Protein 7.5 g/dL (6.4-8.2); Triglyceride 52 mg/dL (<150)
[2022-02-24 09:45] LABS: PHENYTOIN (DILANTIN) 24.9 ug/mL (10.0-20.0)
== END 2022-02-24 03:29 | disposition home or self-care (01) ==
LOC: LBO 03:28
PROVIDERS: Absent Provider Nurse Practitioner; PCP Nurse Practitioner; Referring Provider Nurse Practitioner; Visit Provider Nurse Practitioner
DX: I10 Essential (primary) hypertension (principal); R44.8 Other symptoms and signs involving general sensations and perceptions; G40.909 Epilepsy, unspecified, not intractable, without status epilepticus; Z51.81 Encounter for therapeutic drug level monitoring; Z79.899 Other long term (current) drug therapy
CPT/HCPCS: 36415; 80053; 80061; 85027; 80185; 84443

== ENCOUNTER 2022-07-21 11:27 | Outpatient (CLI) | payer BC, SELFPAY ==
--- NOTE | 2022-07-21 11:15 | DI.RAD_ITS ---
Exam(s) XR KNEE RT 3V AP,LAT,INGA EXAM: XR KNEE RT 3V AP,LAT,INGA CLINICAL HISTORY: Right knee pain. TECHNIQUE: 2D digital imaging was performed of the right knee. Three views obtained. Merchant, AP an d lateral views were obtained. COMPARISON: There are no priors for comparison. FINDINGS: BONES: No acute fracture is present. No bony destructive lesion is seen. JOINTS: The knee is normally aligned. There is a small joint effusion. SOFT TISSUE: Atherosclerosis is present. IMPRESSION: Small joint effusion. DATA REPOSITORY: RADIATION DOSE DELIVERED:
== END 2022-07-21 11:28 | disposition home or self-care (01) ==
LOC: DIORS 11:27
PROVIDERS: PCP Nurse Practitioner; Referring Provider Nurse Practitioner; Visit Provider Student in an Organized Health Care Education/Training Program
DX: M25.561 Pain in right knee (principal); M25.461 Effusion, right knee
CPT/HCPCS: 73562

== ENCOUNTER 2022-07-31 14:12 | Inpatient (IN) | payer BC, SELFPAY ==
[2022-07-31] VITALS (54 sets, daily range): BP systolic 101–154; BP diastolic 55–83; PULSE 86–171; RESP 4–39; TEMP 36.9; O2SAT 88–97
--- NOTE | 2022-07-31 | DI.CT_ITS ---
Exam(s) CT CHEST PE CTA EXAM: CT CHEST PE CTA CLINICAL HISTORY: Hypoxia. TECHNIQUE: Imaging Protocol: CT angiography of the chest was performed using pulmonary embolus van col. Multi planar reconstructions were performed. CONTRAST MATERIAL: Intravenous: Omnipaque 350 Contrast volume: 100 cc COMPARISON: CT CT ABDOMEN PELVIS W from 05/24/2021 FINDINGS: CHEST: PULMONARY ARTERIES: There are no obvious intraluminal filling defects to suggest acute pulmonary embo li. LUNGS: There are no confluent infiltrates nor evidence of pulmonary infarction.. There are no pleural effusions. MEDIASTINUM: There is no hilar nor mediastinal adenopathy. Visualized thyroid unremarkable. CARDIAC: Mild cardiomegaly. No pericardial effusion.Caliber of the thoracic aorta is upper normal. No evidence of dissection. There is no significant shift of the interventricular septum. PARTIALLY VISUALIZED UPPERMOST ABDOMEN: No obvious findings OSSEOUS: No significant osseous lesions.No fractures.. IMPRESSION: 1. No evidence of acute pulmonary emboli. No evidence of pulmonary infarction. 2. No infiltrates nor intrathoracic adenopathy. 3. No pleural effusions. RADIATION DOSE DELIVERED: 171.35mGy.cm Total DLP DATA REPOSITORY: All CT scans at this facility are submitted to the National Radiology Data Registry (NRDR) Dose Index Registry (DIR) with the [employer] (ACR). RADIATION OPTIMIZATION: All CT scans at this facility use at least one of these dose optimization te chniques: automated exposure control; mA and/or kV adjustment per patient size (includes targeted exa ms where dose is matched to clinical indication); or iterative reconstruction.
--- NOTE | 2022-07-31 14:00 | RT.EKG_ITS ---
APPROVED REPORT Exam: Resting ECG Reason for Exam: sob Patient Location: E HR:92 bpm ECG Measurements Heart Rate 92 AXIS MS 132 P 71 QRSd 87 QRS -69 QT 339 T 25 QTc 420 Conclusion Sinus rhythm...normal P axis, V-rate 60- 99 Left atrial enlargement...P, P'>60mS, <-0.15mV V1 Left anterior fascicular block...axis(240,-40), init forces inf Anteroseptal infarct, age indeterminate...Q >35mS, T neg, V1-V2
--- NOTE | 2022-07-31 14:15 | DI.RAD_ITS ---
Exam(s) XR PORTABLE CHEST AP EXAM: XR PORTABLE CHEST AP CLINICAL HISTORY: SOB. TECHNIQUE: 2D digital imaging was performed. COMPARISON: CR XR CHEST 2V PA LATERAL from 05/23/2018 FINDINGS: Single AP portable view. Heart size is upper normal. The mediastinum is not widened. Bilateral hyperinflation again noted but no new infiltrates nor pleural effusions. No pulmonary shelbi a. No pneumothorax. IMPRESSION: No acute pulmonary findings on this single AP portable view of the chest. Hyperinflation again noted. DATA REPOSITORY: RADIATION DOSE DELIVERED:
--- NOTE | 2022-07-31 14:27 | ED.GENADUL_ITS ---
Discharge Plan Discharge Details Chief Complaint: RespSymp Primary Care Provider: Danuta Rosales ED Provider: Tamanna Wellington Home Meds and New Rx's Prescriptions: No Action phenytoin sodium extended [Dilantin Extended] 100 mg capsule See Rx Instructions PO .COMPLEX Qty: 120 12RF Rx Instructions: 100 mg qid ; Brand name only. Generic ineffective. lisinopril 20 mg tablet See Rx Instructions .ROUTE .COMPLEX Qty: 30 12RF Dose Instruction: TAKE ONE TABLET BY MOUTH EVERY DAY Rx Instructions: TAKE ONE TABLET BY MOUTH EVERY DAY Medical Decision Making Cardiac work-up ordered including serial troponins, EKG DuoNeb and Solu-Medrol 125 mg IV. Chest x-ray. Initial troponin within normal limits, D-dimer negative, O2 sat 88 to 89% patient placed on 2 L nasal cannula. Sodium 130. Patient is still somewhat tachypneic COVID is negative. Awaiting serial troponin. Discussed patient case with Dr. Ohara who is oncoming provider. Care is to be handed off. Imaging Data Radiologic Study: Imaging: X-Ray Radiologist's impression: XR PORTABLE CHEST AP EXAM: XR PORTABLE CHEST AP CLINICAL HISTORY: SOB. TECHNIQUE: 2D digital imaging was performed. COMPARISON: CR XR CHEST 2V PA LATERAL from 05/23/2018 FINDINGS: Single AP portable view. Heart size is upper normal. The mediastinum is not widened. Bilateral hyperinflation again noted but no new infiltrates nor pleural effusions. No pulmonary edema. No pneumothorax. IMPRESSION: No acute pulmonary findings on this single AP portable view of the chest. Hyperinflation again noted. Lab Data Lab results reviewed: Yes I reviewed the patient's lab results. Labs: Laboratory Tests Range/Units 07/31/22 07/31/22 07/31/22 14:35 14:35 14:35 WBC (4.4-10.8) 10^3/uL 10.05 RBC (3.93-5.22) 10^6/uL 4.21 Hgb (11.2-15.7) g/dL 13.9 Hct (36.0-46.0) % 40.6 MCV (80-95) fL 96 H MCH (27.0-33.0) pg 33.0 MCHC (32.0-36.0) % 34.2 RDW (11.7-14.6) % 12.3 Plt Count (130-400) 10^3/uL 257 MPV (8.0-11.0) fL 8.7 Immature Gran % 0.3 Neutrophils % 70.5 Lymphocytes % 21.1 Monocytes % 6.8 Eosinophils % 0.5 Basophils % 0.8 Nucleated RBC % (0.0-0.3) % 0.0 Absolute Neutrophils (1.2-6.7) 10^3/uL 7.09 H Absolute Lymphocytes (1.2-3.4) 10^3/uL 2.12 Absolute Monocytes (0.1-0.8) 10^3/uL 0.68 Absolute Eosinophils (0.0-0.7) 10^3/uL 0.05 Absolute Basophils (0.0-0.2) 10^3/uL 0.08 D-Dimer (<500) ng/mlFEU 357 Sodium (136-145) mmol/L 130 L Potassium (3.5-5.1) mmol/L 4.3 Chloride (98-107) mmol/L 94 L Carbon Dioxide (21.0-32.0) mmol/L 31.4 Anion Gap (3-11) mmol/L 4.6 BUN (7-18) mg/dL 15 Creatinine (0.55-1.02) mg/dL 0.7 Est GFR (CKD-EPI 2020) (mL/min/1.73m2) 95.92 Glucose (74-106) mg/dL 113 H Calcium (8.5-10.1) mg/dL 9.0 Magnesium (1.8-2.4) mg/dL 1.9 Total Bilirubin (0.2-1.0) mg/dL 0.2 AST (15-37) U/L 27 ALT (14-59) U/L 35 Alkaline Phosphatase (46-116) U/L 100 Troponin I (<or=60) ng/L < 50 Total Protein (6.4-8.2) g/dL 7.4 Albumin (3.4-5.0) g/dL 4.0 COVID-19 Source SARS-CoV-2 (PCR) (Negative) Range/Units 07/31/22 14:36 WBC (4.4-10.8) 10^3/uL RBC (3.93-5.22) 10^6/uL Hgb (11.2-15.7) g/dL Hct (36.0-46.0) % MCV (80-95) fL MCH (27.0-33.0) pg MCHC (32.0-36.0) % RDW (11.7-14.6) % Plt Count (130-400) 10^3/uL MPV (8.0-11.0) fL Immature Gran % Neutrophils % Lymphocytes % Monocytes % Eosinophils % Basophils % Nucleated RBC % (0.0-0.3) % Absolute Neutrophils (1.2-6.7) 10^3/uL Absolute Lymphocytes (1.2-3.4) 10^3/uL Absolute Monocytes (0.1-0.8) 10^3/uL Absolute Eosinophils (0.0-0.7) 10^3/uL Absolute Basophils (0.0-0.2) 10^3/uL D-Dimer (<500) ng/mlFEU Sodium (136-145) mmol/L Potassium (3.5-5.1) mmol/L Chloride (98-107) mmol/L Carbon Dioxide (21.0-32.0) mmol/L Anion Gap (3-11) mmol/L BUN (7-18) mg/dL Creatinine (0.55-1.02) mg/dL Est GFR (CKD-EPI 2020) (mL/min/1.73m2) Glucose (74-106) mg/dL Calcium (8.5-10.1) mg/dL Magnesium (1.8-2.4) mg/dL Total Bilirubin (0.2-1.0) mg/dL AST (15-37) U/L ALT (14-59) U/L Alkaline Phosphatase (46-116) U/L Troponin I (<or=60) ng/L Total Protein (6.4-8.2) g/dL Albumin (3.4-5.0) g/dL COVID-19 Source Nasal/Nares SARS-CoV-2 (PCR) (Negative) Negative HPI General Mode of arrival: ambulatory . Date/Time Provider Initiated Documentation: 07/31/22 14:18 . Limitations to Documentation: no limitations . Information obtained by: patient, RN notes reviewed and old records reviewed . HPI Narrative: 67-year-old female who is a daily smoker presents to the ER with for 5 days of increased shortness of breath. She reports she does have a productive cough and feels as similar as when she had pneumonia previously. She is currently undergoing physical therapy for recent leg injury. She does have prolonged expiratory period, wheezing noted on auscultation pursed lip breathing. She denies any chest pain nausea vomiting or diarrhea or any other associated symptoms. Related Data Home Medications Medication Instructions Recorded Confirmed Dilantin Extended 100 mg capsule See Rx Instructions PO .COMPLEX 05/18/22 07/31/22 (phenytoin sodium extended) #120 caps lisinopril 20 mg tablet See Rx Instructions .Route 06/14/22 07/31/22 .COMPLEX #30 tabs Previous Rx's Medication Instructions Recorded Dilantin Extended 100 mg capsule See Rx Instructions PO .COMPLEX 05/18/22 (phenytoin sodium extended) #120 caps lisinopril 20 mg tablet See Rx Instructions .Route 06/14/22 .COMPLEX #30 tabs Allergies Allergy/AdvReac Type Severity Reaction Status Date / Time tetracycline Allergy Mild Rash Verified 07/31/22 14:23 cephalexin monohydrate Allergy Unknown UNKNOWN Verified 07/31/22 14:23 [From Keflex] General Stated Complaint: RespSymp JEANNINE: 3 Review of Systems All systems reviewed & are unremarkable except as noted in HPI and below Cardiovascular Cardiovascular: Denies chest pain, Denies pedal edema, Reports dyspnea and Reports dyspnea on exertion Respiratory Respiratory: Reports excessive phlegm production, Reports dyspnea, Reports dyspnea on exertion and Reports wheezing Allergic/Immunologic Allergic/Immunologic: Reports wheezing PFSH All Active Problems Chondromalacia patellae, right knee (Acute) Effusion, right knee (Acute) Contusion of right thigh (Acute) Osteochondral defect of patella (Acute) Right knee pain (Acute) Hematoma (Acute) Right calf pain (Acute) Lipoma of right lower extremity (Acute) Fatigue (Acute) Feels cold (Acute) Smoker (Acute) Lung cancer screening declined by patient (Acute) Vaccine refused by patient (Acute) Diverticula of colon (Acute) Abdominal pain (Acute) Abdominal distention (Acute) Screening for cholesterol level (Acute) Colon cancer screening (Acute) Abdominal bloating (Acute) Mammogram declined (Acute) Family history of colon cancer (Acute) Essential hypertension (Acute) Macrocytosis (Chronic 02/18/14) B12 NL 2009 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 states I had abnormal blood vessels, i had 2 seizues which was 20 years ago and johnie been dilantin every since, and havent had a seizre History of colonoscopy (~06/06/20) Hx of elbow surgery Hx of shoulder surgery Family History Mother Angina pectoris Father Dementia Angina pectoris Social History Smoking/Tobacco Use Status: Current every day Quit status: not considering quitting Smoking risk assessment performed?: Yes Alcohol Intake: current Alcohol Intake frequency: 0-2 drinks per day Alcohol type: beer Previous attempts at quittin Drug use: Never Substance use type: does not use Household members: spouse Housing: house Number of Children: 4 Communication Needs: None Education Level: high school Current gender identity: female What is your relationship status?: Panel score (0-1 are the most socially isolated patients): 1 What type of physical activity do you participate in: walking Frequency: daily Seatbelt use: always Working smoke detector in home: Yes Do you feel safe at home: Yes Do you feel safe in your relationship?: Yes Exam Narrative Exam Narrative: Constitutional: Alert and oriented x3. Appears stated age. Thin body habitus. Head: Normocephalic, no trauma. Eyes: Pupils PERRL, Red reflex noted, EOM's intact. Eyelids symmetrical without lesions, discharge, or swelling. ENT: Bilateral TM's WNL, External ear normal to inspection, no mastoid TTP, swelling, or erythema, Nasal turbinates WNL, no nasal discharge. Normal dentition, Posterior pharynx WNL, no exudate. Chest: RRR, Normal S1, S2, distal pulses intact. Resp: Increased expiratory., Pursed lip breathing, expiratory wheezes auscultated bilaterally. Abdomen: Soft, non-distended, Normoactive bowel sounds all 4 quads. Musculoskeletal: Normal gait, 5/5 strength to all four extremities. Skin: No suspicious rashes or lesions. Capillary refill less than 2 sec. Neurologic: Cranial nerves II-XII intact. Alert and oriented x 3. Motor: No deficits noted. Sensory: Intact bilaterally all 4 extremities. Hematologic/Lymphatic: No ecchymosis, no lymphadenopathy. Course Vital Signs Vital signs: Vital Signs Temperature 36.9 C 07/31/22 14:17 Pulse 96 H 07/31/22 14:17 Respiratory Rate 20 07/31/22 14:17 Blood Pressure 149/83 H 07/31/22 14:17 Pulse Oximetry 88 L 07/31/22 14:17 Temperature 36.9 C 07/31/22 14:17 Temperature Source Tympanic 07/31/22 14:17 Pulse 96 H 07/31/22 14:17 Respiratory Rate 20 07/31/22 14:17 Respiratory Effort Normal 07/31/22 14:22 Blood Pressure 149/83 H 07/31/22 14:17 Pulse Oximetry 88 L 07/31/22 14:17 Oxygen Delivery Method Room Air 07/31/22 14:17 Oxygen Flow Rate 0 07/31/22 14:17 Pain Level 0 07/31/22 14:17 Sign Out Sign Out Data: Sign Out Comment: Here with SOB, and Tachypnea, Hypoxia, Pending Serial Troponin. Last updated by Tamanna Wellington NP at 07/31/22 15:43 PAWSS Have you Been Recently Intoxicated or Drunk Within the Last 30 days?: No Have you Ever Experienced Previous Episodes of Alcohol Withdrawal?: No Have you ever Experienced Withdrawal Seizures?: No Have you ever Experienced Delirium Tremens(DT)s?: No Have you ever undergone Alcohol Rehabilitation Treatment (i.e, inpt ot outpatient treatment programs)?: No Have you ever Experienced Blackouts?: No Have you ever Combined Alcohol with other Downers within the last 90 days?: No Have you ever Combined Alcohol with any other Substance of Abuse during the last 90 days?: No Positive Blood Alcohol level on Presentation? [PCS.BAL]: No Evidence of Increased Autonomic Activity (i.e. HR>120, tremor, sweating, agitation, nausea)?: No Result: 0
[2022-07-31 14:43] LABS: Abs Immature Grans 0.03 10^3/uL (0.0-0.06); Absolute Basophil Count 0.08 10^3/uL (0.0-0.2); Absolute Eosinophil Count 0.05 10^3/uL (0.0-0.7); Absolute Lymphocyte Count 2.12 10^3/uL (1.2-3.4); Absolute Monocyte Count 0.68 10^3/uL (0.1-0.8); Absolute Neutrophil Count 7.09 10^3/uL (1.2-6.7); Basophils % 0.8; Eosinophils % 0.5; HCT 40.6 % (36.0-46.0); HGB 13.9 g/dL (11.2-15.7); Immature Grans % 0.3; Lymphocytes % 21.1; MCHC 34.2 % (32.0-36.0); MCV 96 fL (80-95); MPV 8.7 fL (8.0-11.0); Monocytes % 6.8; Neutrophils % 70.5; Platelet Count 257 10^3/uL (130-400); RBC 4.21 10^6/uL (3.93-5.22); RDW 12.3 % (11.7-14.6); RDW-SD 43.9 fL; WBC 10.05 10^3/uL (4.4-10.8)
[2022-07-31 14:45] LABS: Source Nasal/Nares
[2022-07-31] MEDS: methylPREDNISolone SUCC 125 MG VIAL IVP (14:46)
[2022-07-31] MEDS: Albuterol 2.5 MG/3 ML INH SOLN VIAL UPD ×4 (14:46→16:40)
[2022-07-31] MEDS: Ipratropium 0.5 MG/2.5 ML UPD VIAL UPD (14:47)
[2022-07-31 15:01] LABS: ALT 35 U/L (14-59); AST 27 U/L (15-37); Alkaline Phosphatase 100 U/L (46-116); Anion Gap 4.6 mmol/L (3-11); BUN 15 mg/dL (7-18); Bilirubin, Total 0.2 mg/dL (0.2-1.0); CO2 31.4 mmol/L (21.0-32.0); CREATININE 0.7 mg/dL (0.55-1.02); Chloride 94 mmol/L (98-107); Estimated GFR 95.92 (mL/min/1.73m2); Glucose 113 mg/dL (74-106); Magnesium 1.9 mg/dL (1.8-2.4); Potassium 4.3 mmol/L (3.5-5.1); Sodium 130 mmol/L (136-145); Total Protein 7.4 g/dL (6.4-8.2); Troponin I < 50 ng/L (<or=60)
--- NOTE | 2022-07-31 15:05 | DI.VRAD_ITS ---
PROCEDURE INFORMATION: Exam: XR Chest Exam date and time: 07/31/2022 2:30 PM Age: 67 years old Clinical indication: Shortness of breath; Patient HX: SOB TECHNIQUE: Imaging protocol: Radiologic exam of the chest. Views: 1 view. COMPARISON: CR XR CHEST 2V PA LATERAL 05/23/2018 9:17 AM FINDINGS: Lungs: Unremarkable. No consolidation. Pleural spaces: Unremarkable. No pleural effusion. No pneumothorax. Heart/Mediastinum: Unremarkable. No cardiomegaly. Bones/joints: Unremarkable. IMPRESSION: No acute findings. Dictated and Authenticated by: Abiodun Alvarez MD. Ordering:CHARMAINE Nolen MD
[2022-07-31] MEDS: Normal Saline 500 ML IV (15:10)
[2022-07-31 15:13] LABS: D-Dimer 357 ng/mlFEU (<500)
[2022-07-31 15:18] LABS: COVID-19 PCR Negative (Negative)
[2022-07-31 17:19] LABS: Troponin I < 50 ng/L (<or=60)
--- NOTE | 2022-07-31 17:20 | ED.PROG_ITS ---
Date of service: 07/31/22 Time of Service: 17:21 Medical Decision Making Patient signed out to me after presenting with shortness of breath and cough. I reviewed her chest x-ray which is unchanged and shows evidence of emphysema but no infiltrate. Laboratory studies are unremarkable. She was given a DuoNeb and steroids prior to me receiving signout. Patient ordered for 2.5 albuterol neb x3 q. 20 minutes apart. Following this her room air saturations at rest were still 88%. On 2 L she is 91 to 92%. Second troponin is negative. Discussed with patient and with hospitalist. Patient will need admission for presumed COPD exacerbation. Given the increased sputum production despite lack of infiltrate will cover with Zithromax. Patient admitted to hospitalist service in stable condition. Lab Data Lab results reviewed: Yes I reviewed the patient's lab results. Exam Narrative Exam Narrative: Const: WDWN female in NAD but does exhibit purse lip breathing. HEENT: NC/AT. Normal facial exam. Eyes: Normal conjunctiva and sclera. Neck: Supple. Trachea midline. Lungs: Normal respiratory effort. Lungs with wheeze and rhonchi throughout. Cor: RRR without murmur/gallop. Good radial pulses. Neuro: A+O x 3. Normal speech, mentation, gait. Cranial nerves II - XII grossly intact. No gross motor or sensory deficit. Ext: No C/C/E. Skin: Warm and dry without rash. Narrative Patient signed out to me after presenting with cough and shortness of breath for the last 4 days. Patient does not carry a diagnosis of COPD but she is a lifetime smoker. She reports a general worsening of symptoms now with productive cough with increased sputum production, increased shortness of breath. She denies fever. She denies chest pain. She was signed out pending a repeat troponin. However, patient remains hypoxic on room air. Currently on 2 L. Sign Out Sign Out Data: Sign Out Comment: Here with SOB, and Tachypnea, Hypoxia, Pending Serial Troponin. Last updated by Tamanna Wellington NP at 07/31/22 15:43 Discharge Plan Disposition Patient Disposition: Admit to [facility] Condition: Fair Discharge Details Clinical Impression: Acute exacerbation of chronic obstructive pulmonary disease Primary Care Provider: Danuta Rosales ED Provider: Calvin Ohara [place] Meds and New Rx's Prescriptions: No Action phenytoin sodium extended [Dilantin Extended] 100 mg capsule See Rx Instructions PO .COMPLEX Qty: 120 12RF Rx Instructions: 100 mg qid ; Brand name only. Generic ineffective. lisinopril 20 mg tablet See Rx Instructions .ROUTE .COMPLEX Qty: 30 12RF Dose Instruction: TAKE ONE TABLET BY MOUTH EVERY DAY Rx Instructions: TAKE ONE TABLET BY MOUTH EVERY DAY
[2022-07-31] MEDS: Azithromycin 250 MG TAB 500 MG PO (17:47)
--- NOTE | 2022-07-31 18:11 | HPE_ITS ---
Date of service: 07/31/22 Time of Service: 18:11 Assessment and Plan Assessment and plan (1) Acute exacerbation of chronic obstructive pulmonary disease: Status: Acute Assessment and plan: New dx COPD; emphysema on CXR; unable to get SPO2 over 88% on RA. Oxygen, nebulizers, steroids, PPI, Sputum cx pending Azithromycin 500 mg daily - oral IS/Acapella CTA Chest R/O PE (2) Smoker: Status: Acute Assessment and plan: Recommend smoking cessation Offered patch, inhaler, gum - declined (3) Essential hypertension: Status: Acute Assessment and plan: Stable - continue home Lisinopril (4) Hyponatremia: Status: Resolved Assessment and plan: Sodium 130 - NS @ 75 ml/h (5) Seizure disorder: Status: Chronic Assessment and plan: Confusing -patient states 20 years ago she had something done with blood vessels in her head, had w seizures and has been on Dilantin ever since Will continue dilantin and investigate who follows her for that. (6) DVT prophylaxis: Status: Acute Assessment and plan: Enoxaparin (7) Discharge planning issues: Status: Acute Assessment and plan: Home when stable without services Lives at home with supportive Recommend smoking cessation Discussed with Dr Ashford History of Present Illness History of Present Illness Chief Complaint: Sob and cough Narrative: This is a 67-year-old female patient who is a daily smoker, who is currently undergoing physical therapy for recent leg injury, with no other significant past medical history who presented to the urgent care for complaint of cough and shortness of breath.? They were concerned after exam that she might have a pulmonary embolism and sent her to the [facility] ED.? She reported she has a productive cough and feels as similar as when she previously had pneumonia.?In the ED she had a prolonged expiratory period, wheezing and pursed lip breathing.? She denied any fever, chest pain, nausea, vomiting or diarrhea or any other associated symptoms. Cardiac work-up ordered including serial troponins, EKG DuoNeb and Solu-Medrol 125 mg IV was given.? Chest x-ray. Initial and second troponin within normal limits, D-dimer negative, O2 sat 88 to 89% on room air.? Patient placed on 2 L nasal cannula. Patient is still somewhat tachypneic, Flu and COVID is negative.? Chest xray is unchanged from previous and showed evidence of emphysema but no infiltrate. Heavy smoker for >45 years.? Laboratory studies are unremarkable except sodium of 130.?She complained of quite a bit of increased sputum production. Despite lack of infiltrate she was started on Azithromycin.? Patient placed on observation status on the medical floor in stable condition. Review of Systems All systems reviewed & are unremarkable except as noted in HPI and below PFSH All Active Problems (Updated 08/01/22 @ 09:00 by Liberty Ashford MD) Hypoxia (Acute) Discharge planning issues (Acute) DVT prophylaxis (Acute) Seizure disorder (Chronic) Acute exacerbation of chronic obstructive pulmonary disease (Acute) Chondromalacia patellae, right knee (Acute) Effusion, right knee (Acute) Contusion of right thigh (Acute) Osteochondral defect of patella (Acute) Right knee pain (Acute) Hematoma (Acute) Right calf pain (Acute) Lipoma of right lower extremity (Acute) Fatigue (Acute) Feels cold (Acute) Smoker (Acute) Lung cancer screening declined by patient (Acute) Vaccine refused by patient (Acute) Diverticula of colon (Acute) Abdominal pain (Acute) Abdominal distention (Acute) Screening for cholesterol level (Acute) Colon cancer screening (Acute) Abdominal bloating (Acute) Mammogram declined (Acute) Family history of colon cancer (Acute) Essential hypertension (Acute) Macrocytosis (Chronic 02/18/14) B12 NL 2009 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 states I had abnormal blood vessels, i had 2 seizues which was 20 years ago and johnie been dilantin every since, and havent had a seizre History of colonoscopy (~06/06/20) Hx of elbow surgery Hx of shoulder surgery Family History Mother Angina pectoris Father Dementia Angina pectoris Social History Smoking/Tobacco Use Status: Current every day Quit status: not considering quitting Smoking risk assessment performed?: Yes Alcohol Intake: current Alcohol Intake frequency: 0-2 drinks per day Alcohol type: beer Previous attempts at quittin Drug use: Never Substance use type: does not use Household members: spouse Housing: house Number of Children: 4 Communication Needs: None Education Level: high school Current gender identity: female What is your relationship status?: Panel score (0-1 are the most socially isolated patients): 1 What type of physical activity do you participate in: walking Frequency: daily Seatbelt use: always Working smoke detector in home: Yes Do you feel safe at home: Yes Do you feel safe in your relationship?: Yes Meds Allergies and Home Medications Allergies Allergy/AdvReac Type Severity Reaction Status Date / Time tetracycline Allergy Mild Rash Verified 07/31/22 14:23 cephalexin monohydrate Allergy Unknown UNKNOWN Verified 07/31/22 14:23 [From Keflex] Home Medications Medication Instructions Recorded Confirmed Type Dilantin Extended 100 mg capsule See Rx Instructions PO .COMPLEX 05/18/22 07/31/22 Rx (phenytoin sodium extended) #120 caps lisinopril 20 mg tablet See Rx Instructions .Route 06/14/22 07/31/22 Rx .COMPLEX #30 tabs Exam Narrative Exam Narrative: Constitutional: Alert and oriented x3. Appears stated age. Thin body habitus. Head: Normocephalic, no trauma. Eyes: Pupils PERRL, Red reflex noted, EOM's intact. Eyelids symmetrical without lesions, discharge, or swelling. ENT: Bilateral TM's WNL, External ear normal to inspection, no mastoid TTP, swelling, or erythema, Nasal turbinates WNL, no nasal discharge. Normal dentition, Posterior pharynx WNL, no exudate. Chest: RRR, Normal S1, S2, distal pulses intact. Resp: Increased expiratory., Pursed lip breathing, expiratory wheezes auscultated bilaterally. Abdomen: Soft, non-distended, Normoactive bowel sounds all 4 quads. Musculoskeletal: Normal gait, 5/5 strength to all four extremities. Skin: No suspicious rashes or lesions. Capillary refill less than 2 sec. Neurologic: Cranial nerves II-XII intact. Alert and oriented x 3. Motor: No deficits noted. Sensory: Intact bilaterally all 4 extremities. Hematologic/Lymphatic: No ecchymosis, no lymphadenopathy. Resp Effort & Inspection: normal respiratory effort (Increased work of breathing) and labored Auscultation: wheezes (not moving much air bilaterally - barrel chest) expiratory wheezes (End exp wheezes bilat) Results Labs 07/31/22 14:35 07/31/22 14:35 Labs: Laboratory Results - last 24 hr 07/31/22 07/31/22 07/31/22 14:35 14:35 14:35 WBC 10.05 RBC 4.21 Hgb 13.9 Hct 40.6 MCV 96 H MCH 33.0 MCHC 34.2 RDW 12.3 Plt Count 257 MPV 8.7 Immature Gran % 0.3 Neutrophils % 70.5 Lymphocytes % 21.1 Monocytes % 6.8 Eosinophils % 0.5 Basophils % 0.8 Nucleated RBC % 0.0 Absolute Neutrophils 7.09 H Absolute Lymphocytes 2.12 Absolute Monocytes 0.68 Absolute Eosinophils 0.05 Absolute Basophils 0.08 D-Dimer 357 Sodium 130 L Potassium 4.3 Chloride 94 L Carbon Dioxide 31.4 Anion Gap 4.6 BUN 15 Creatinine 0.7 Est GFR (CKD-EPI 2020) 95.92 Glucose 113 H Calcium 9.0 Magnesium 1.9 Total Bilirubin 0.2 AST 27 ALT 35 Alkaline Phosphatase 100 Troponin I < 50 Total Protein 7.4 Albumin 4.0 COVID-19 Source SARS-CoV-2 (PCR) 07/31/22 07/31/22 14:36 16:57 WBC RBC Hgb Hct MCV MCH MCHC RDW Plt Count MPV Immature Gran % Neutrophils % Lymphocytes % Monocytes % Eosinophils % Basophils % Nucleated RBC % Absolute Neutrophils Absolute Lymphocytes Absolute Monocytes Absolute Eosinophils Absolute Basophils D-Dimer Sodium Potassium Chloride Carbon Dioxide Anion Gap BUN Creatinine Est GFR (CKD-EPI 2020) Glucose Calcium Magnesium Total Bilirubin AST ALT Alkaline Phosphatase Troponin I < 50 Total Protein Albumin COVID-19 Source Nasal/Nares SARS-CoV-2 (PCR) Negative Last Vital Signs Temp 36.9 C 07/31/22 14:17 Pulse 96 H 07/31/22 14:17 Resp 15 07/31/22 16:40 BP 149/83 H 07/31/22 14:17 Pulse Ox 96 07/31/22 16:40 PAWSS Have you Been Recently Intoxicated or Drunk Within the Last 30 days?: No Have you Ever Experienced Previous Episodes of Alcohol Withdrawal?: No Have you ever Experienced Withdrawal Seizures?: No Have you ever Experienced Delirium Tremens(DT)s?: No Have you ever undergone Alcohol Rehabilitation Treatment (i.e, inpt ot outpatient treatment programs)?: No Have you ever Experienced Blackouts?: No Have you ever Combined Alcohol with other Downers within the last 90 days?: No Have you ever Combined Alcohol with any other Substance of Abuse during the last 90 days?: No Positive Blood Alcohol level on Presentation? [PCS.BAL]: No Evidence of Increased Autonomic Activity (i.e. HR>120, tremor, sweating, agitation, nausea)?: No Result: 0 Time Spent Time spent with Patient: 40-54 minutes Time was spent: preparing to see the patient(eg.review tests), obtaining and/or reviewing separately otained hiistory, ordering medications,tests, procedures, referring, communicating with other health customer care coordinator, indepentently interpreting results, counseling the patient and care coordination
[2022-07-31 18:58] LABS: COVID-19 PCR Negative (Negative); Influenza A PCR Negative (Negative); Influenza B PCR Negative (Negative); RSV PCR Negative (Negative)
[2022-07-31 18:59] LABS: Source Nasopharynx
[2022-07-31 19:30] LABS: Lab Add On Test DONE
[2022-07-31] MEDS: Omnipaque 350 MG/ML 100 ML BTL IJ (19:44)
[2022-07-31] MEDS: Normal Saline - Diluent 50 ML VIAL IJ (19:44)
[2022-07-31 20:20] LABS: Procalcitonin < 0.1 ng/mL
--- NOTE | 2022-07-31 20:30 | DI.VRAD_ITS ---
PROCEDURE INFORMATION: Exam: CTA Chest With Contrast Exam date and time: 07/31/2022 7:44 PM Age: 67 years old Clinical indication: Other: Hypoxia TECHNIQUE: Imaging protocol: Computed tomographic angiography of the chest with contrast. 3D rendering (Not supervised by radiologist): MIP and/or 3D reconstructed images were created by the technologist. Contrast material: 350; Contrast volume: 100 ml; Contrast route: INTRAVENOUS (IV); COMPARISON: CR XR PORTABLE CHEST AP 07/31/2022 2:30 PM FINDINGS: Pulmonary arteries: Normal. No pulmonary emboli. Aorta: Mild atherosclerotic calcification noted in the aorta and its branches. No evidence of aortic aneurysm or dissection. Lungs: Mild changes of emphysema noted in the mid to upper lungs. No active pulmonary infiltrate. Pleural spaces: Unremarkable. No pneumothorax. No pleural effusion. Heart: The heart is mildly enlarged. Coronary arteries: Coronary artery calcifications are noted. Lymph nodes: Unremarkable. No enlarged lymph nodes. Bones/joints: Moderate degenerative disc changes noted throughout the thoracic spine. No vertebral body compression or acute fracture. Soft tissues: Unremarkable. IMPRESSION: No evidence of pulmonary embolus or other acute abnormality in the chest. Chronic appearing findings as noted. Dictated and Authenticated by: Kiko Adair MD. Ordering:SUSANNA Conroy MD
[2022-07-31] MEDS: Enoxaparin 80 MG/0.8 ML SYR SC (21:42)
[2022-08-01] VITALS (67 sets, daily range): BP systolic 118–135; BP diastolic 55–75; PULSE 66–99; RESP 4–23; TEMP 36.3–37.5; O2SAT 81–100
[2022-08-01] MEDS: guaiFENesin 600 MG TABCR 1200 MG PO ×3 (00:14→19:57)
[2022-08-01] MEDS: Zolpidem 5 MG TAB PO (00:19)
[2022-08-01] MEDS: Normal Saline 1,000 ML 75 ML IV (00:26)
[2022-08-01 06:33] LABS: Abs Immature Grans 0.04 10^3/uL (0.0-0.06); Absolute Basophil Count 0.06 10^3/uL (0.0-0.2); Absolute Eosinophil Count 0.04 10^3/uL (0.0-0.7); Absolute Lymphocyte Count 2.67 10^3/uL (1.2-3.4); Absolute Monocyte Count 0.68 10^3/uL (0.1-0.8); Absolute Neutrophil Count 6.64 10^3/uL (1.2-6.7); Basophils % 0.6; Eosinophils % 0.4; HCT 34.8 % (36.0-46.0); HGB 11.7 g/dL (11.2-15.7); Immature Grans % 0.4; Lymphocytes % 26.4; MCH 32.8 pg (27.0-33.0); MCHC 33.6 % (32.0-36.0); MCV 98 fL (80-95); MPV 9.2 fL (8.0-11.0); Monocytes % 6.7; Neutrophils % 65.5; Platelet Count 212 10^3/uL (130-400); RBC 3.57 10^6/uL (3.93-5.22); RDW 12.5 % (11.7-14.6); RDW-SD 44.9 fL; WBC 10.13 10^3/uL (4.4-10.8)
[2022-08-01 07:10] LABS: Anion Gap 7.6 mmol/L (3-11); BUN 11 mg/dL (7-18); CO2 30.4 mmol/L (21.0-32.0); CREATININE 0.6 mg/dL (0.55-1.02); Chloride 103 mmol/L (98-107); Estimated GFR 99.55 (mL/min/1.73m2); Glucose 86 mg/dL (74-106); Potassium 4.1 mmol/L (3.5-5.1); Sodium 141 mmol/L (136-145)
--- NOTE | 2022-08-01 08:43 | W.PM.PROGNOT ---
Date of Service Date of service: 08/01/22 Time of Service: 08:43 Assessment and Plan Assessment and plan (1) Acute exacerbation of chronic obstructive pulmonary disease: Status: Acute Assessment and plan: Evidence of emphysema by CT. Has never had PFTs. No evidence of PNA on CTA. Suspect acute bronchitis. Continue azithromycin, steroids, nebs. Wean O2 as tolerated. Encourage pulmonary toilet. Will need outpatient PFTs. Encouraged tobacco cessation. (2) Hypoxia: Status: Acute Assessment and plan: Still requiring 1L of O2 by NC at rest this morning. Will check exercise oximetry. RT has reviewed the risk of fire w/ smoking/O2 use with the patient and . (3) Smoker: Status: Acute Assessment and plan: Again, advised to quit. nicotrol inhaler prn ordered. (4) Essential hypertension: Status: Acute Assessment and plan: Stable - continue home Lisinopril (5) Hyponatremia: Status: Resolved Assessment and plan: D/c IVF. No lung masses on CT. (6) Seizure disorder: Status: Chronic Assessment and plan: Continue dilantin. Check dilantin level. (7) DVT prophylaxis: Status: Acute Assessment and plan: SC Enoxaparin (8) Discharge planning issues: Status: Acute Assessment and plan: Full code Continues to require hospitalization. Anticipate discharge home in the next 24-48 hrs. May require home O2. Subjective Subjective Interval history since last seen: Barby feels better. She denies dizziness now (felt dizzy with all the treatments yesterday, she states), denies CP, SOB is better, cough is nonproductive this am, denies n/v. On 1L of O2 at rest this am saturating 91%. We discussed the findings of her CT (emphysema, no PNA), that she would need to follow up once her lungs are at their baseline with outpatient PFTs and that she needs to stop smoking. We discussed nicotrol inhaler use while in the hospital. The patient agrees to stay another night. Exam Narrative Exam Narrative: General: Pleasant middle-aged female who is sitting comfortably at the side of the bed, A&Ox3, no dyspnea/tachypnea/cyanosis on 1L of O2 by NC HEENT: EOMI, MMM Heart: RRR, no m/r/g Lungs: very diminished breath sounds B; faint expiratory wheezing on L Abdomen: soft, nontender, nondistended Extremities: no edema BLEs Objective Last Vital Signs Temp 36.7 C 08/01/22 00:00 Pulse 82 08/01/22 05:52 Resp 20 08/01/22 00:00 BP 125/63 08/01/22 05:52 Pulse Ox 91 L 08/01/22 08:16 Laboratory Results - last 24 hr 07/31/22 07/31/22 07/31/22 14:35 14:35 14:35 WBC 10.05 RBC 4.21 Hgb 13.9 Hct 40.6 MCV 96 H MCH 33.0 MCHC 34.2 RDW 12.3 Plt Count 257 MPV 8.7 Immature Gran % 0.3 Neutrophils % 70.5 Lymphocytes % 21.1 Monocytes % 6.8 Eosinophils % 0.5 Basophils % 0.8 Nucleated RBC % 0.0 Absolute Neutrophils 7.09 H Absolute Lymphocytes 2.12 Absolute Monocytes 0.68 Absolute Eosinophils 0.05 Absolute Basophils 0.08 D-Dimer 357 Sodium 130 L Potassium 4.3 Chloride 94 L Carbon Dioxide 31.4 Anion Gap 4.6 BUN 15 Creatinine 0.7 Est GFR (CKD-EPI 2020) 95.92 Glucose 113 H Calcium 9.0 Magnesium 1.9 Total Bilirubin 0.2 AST 27 ALT 35 Alkaline Phosphatase 100 Troponin I < 50 Total Protein 7.4 Albumin 4.0 Procalcitonin COVID-19 Source SARS-CoV-2 (PCR) Influenza Type A (PCR) Influenza Type B (PCR) RSV (PCR) Add-On Test Request 07/31/22 07/31/22 07/31/22 14:36 16:57 16:57 WBC RBC Hgb Hct MCV MCH MCHC RDW Plt Count MPV Immature Gran % Neutrophils % Lymphocytes % Monocytes % Eosinophils % Basophils % Nucleated RBC % Absolute Neutrophils Absolute Lymphocytes Absolute Monocytes Absolute Eosinophils Absolute Basophils D-Dimer Sodium Potassium Chloride Carbon Dioxide Anion Gap BUN Creatinine Est GFR (CKD-EPI 2020) Glucose Calcium Magnesium Total Bilirubin AST ALT Alkaline Phosphatase Troponin I < 50 Total Protein Albumin Procalcitonin < 0.1 COVID-19 Source Nasal/Nares SARS-CoV-2 (PCR) Negative Influenza Type A (PCR) Influenza Type B (PCR) RSV (PCR) Add-On Test Request 07/31/22 07/31/22 08/01/22 17:33 18:10 05:25 WBC RBC Hgb Hct MCV MCH MCHC RDW Plt Count MPV Immature Gran % Neutrophils % Lymphocytes % Monocytes % Eosinophils % Basophils % Nucleated RBC % Absolute Neutrophils Absolute Lymphocytes Absolute Monocytes Absolute Eosinophils Absolute Basophils D-Dimer Sodium 141 D Potassium 4.1 Chloride 103 Carbon Dioxide 30.4 Anion Gap 7.6 BUN 11 Creatinine 0.6 Est GFR (CKD-EPI 2020) 99.55 Glucose 86 Calcium 8.0 L Magnesium 2.0 Total Bilirubin AST ALT Alkaline Phosphatase Troponin I Total Protein Albumin Procalcitonin COVID-19 Source Nasopharynx SARS-CoV-2 (PCR) Negative Influenza Type A (PCR) Negative Influenza Type B (PCR) Negative RSV (PCR) Negative Add-On Test Request DONE 08/01/22 05:25 WBC 10.13 RBC 3.57 L Hgb 11.7 D Hct 34.8 L MCV 98 H MCH 32.8 MCHC 33.6 RDW 12.5 Plt Count 212 MPV 9.2 Immature Gran % 0.4 Neutrophils % 65.5 Lymphocytes % 26.4 Monocytes % 6.7 Eosinophils % 0.4 Basophils % 0.6 Nucleated RBC % 0.0 Absolute Neutrophils 6.64 Absolute Lymphocytes 2.67 Absolute Monocytes 0.68 Absolute Eosinophils 0.04 Absolute Basophils 0.06 D-Dimer Sodium Potassium Chloride Carbon Dioxide Anion Gap BUN Creatinine Est GFR (CKD-EPI 2020) Glucose Calcium Magnesium Total Bilirubin AST ALT Alkaline Phosphatase Troponin I Total Protein Albumin Procalcitonin COVID-19 Source SARS-CoV-2 (PCR) Influenza Type A (PCR) Influenza Type B (PCR) RSV (PCR) Add-On Test Request Objective Narrative Objective Narrative: CTA chest: No evidence of pulmonary embolus or other acute abnormality in the chest.? Chronic appearing findings as noted. Mild changes of emphysema noted in the mid to upper lungs. No active pulmonary infiltrate. PAWSS Have you Been Recently Intoxicated or Drunk Within the Last 30 days?: No Have you Ever Experienced Previous Episodes of Alcohol Withdrawal?: No Have you ever Experienced Withdrawal Seizures?: No Have you ever Experienced Delirium Tremens(DT)s?: No Have you ever undergone Alcohol Rehabilitation Treatment (i.e, inpt ot outpatient treatment programs)?: No Have you ever Experienced Blackouts?: No Have you ever Combined Alcohol with other Downers within the last 90 days?: No Have you ever Combined Alcohol with any other Substance of Abuse during the last 90 days?: No Positive Blood Alcohol level on Presentation? [PCS.BAL]: No Evidence of Increased Autonomic Activity (i.e. HR>120, tremor, sweating, agitation, nausea)?: No Result: 0 Time Spent with Patient Time Spent with Patient: 25-34 minutes Time was spent: preparing to see the patient(eg.review tests), obtaining and/or reviewing separately otained hiistory, ordering medications,tests, procedures, referring, communicating with other health post acute care nurse practitioner, indepentently interpreting results, counseling the patient and care coordination
[2022-08-01] MEDS: Azithromycin 250 MG TAB 500 MG PO (09:25)
[2022-08-01] MEDS: predniSONE 20 MG TAB 40 MG PO (09:25)
[2022-08-01] MEDS: Lisinopril 20 MG TAB PO (09:26)
[2022-08-01] MEDS: Omeprazole 20 MG CAPCR PO (09:26)
--- NOTE | 2022-08-01 10:29 | PDOC.CMIN ---
- If Service Date Differs Date of service: 08/01/22 Time of Service: 10:29 Care Management Initial Assess REASON FOR HOSPITALIZATION:: COPD exacerbation. PAST MEDICAL HISTORY/PAST SURGICAL HISTORY:: All Active Problems: Discharge planning issues (Acute), DVT prophylaxis (Acute), Seizure disorder (Chronic), Hyponatremia (Acute), Acute exacerbation of chronic obstructive pulmonary disease (Acute),. Chondromalacia patellae, right knee (Acute), Effusion, right knee (Acute),. Contusion of right thigh (Acute), Osteochondral defect of patella (Acute),. Right knee pain (Acute), Hematoma (Acute), Right calf pain (Acute),. Lipoma of right lower extremity (Acute), Fatigue (Acute), Feels cold (Acute), Smoker (Acute), Lung cancer screening declined by patient (Acute), Vaccine refused by patient (Acute), Diverticula of colon (Acute),. Abdominal pain (Acute), Abdominal distention (Acute), Screening for cholesterol level (Acute), Colon cancer screening (Acute), Abdominal bloating (Acute), Mammogram declined (Acute), Family history of colon cancer (Acute), Essential hypertension (Acute), Macrocytosis (Chronic 02/18/14) - B12 NL 2009, Other convulsions (Chronic 08/10/11), Pelvic cramping (Chronic 07/17/14), and Continuous chewing tobacco dependence (Chronic 08/10/11) - Denies this. Surgical History: brain surgery - Per pt. states I had abnormal blood vessels, i had 2 seizues which was 20 years ago and johnie been dilantin every since, and havent had a seizure, History of colonoscopy (~06/06/20), Hx of elbow surgery, and Hx of shoulder surgery. PREVIOUS FUNCTIONAL STATUS/SOCIAL/FAMILY SUPPORTS:: Barby lives in [facility] with her Wade and their 4 month old almaraz retriever puppy. 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 She shares her job creates a lot of dust which is probably not good for her lungs. Barby drives and is independent with her ADLs at baseline. CURRENT FUNCTIONAL STATUS:: Barby is sitting up in bed when CM comes to meet with her. Her Wade is present in the room. Barby talks about her new puppy and all of the energy he has. She shares she likely will be going home tomorrow and says she is going to beat whatever she has and does not intend on ever having home oxygen. ADVANCE DIRECTIVES:: None on file. Has patient been provided with info about the portal/API?: Yes Did the patient sign up for the portal?: No CODE STATUS:: Full Code INSURANCE COVERAGE / FINANCIAL ISSUES:: BCBS and Medicare Part A. CURRENT HOME/COMMUNITY SERVICES/EQUIPMENT:: None. PRIMARY CARE PHYSICIAN:: Danuta Rosales aprn. POTENTIAL DISCHARGE NEEDS:: Follow up appointments with PCP and pulmonology and outpatient pulmonary function test. PATIENT/FAMILY EDUCATION NEEDS:: Review of discharge instructions and discuss Ask Me Three and self management. ANTICIPATED BARRIERS TO DISCHARGE:: None identified. TRANSPORTATION:: Via private vehicle with . PLAN:: Barby will be discharged home with no services when medically cleared by provider. She will follow up with her PCP, pulmonology and plan of care as instructed. She will be transported home by her via private vehicle when ready. CM will continue to follow.
[2022-08-01 11:17] LABS: PHENYTOIN (DILANTIN) 24.1 ug/mL (10.0-20.0)
[2022-08-01] MEDS: Albuterol/Ipratropium 3 ML UPD VIAL UPD ×2 (15:42→19:58)
[2022-08-02] VITALS (15 sets, daily range): BP systolic 126–134; BP diastolic 62–83; PULSE 64–100; RESP 1–20; TEMP 35.9–37.4; O2SAT 87–98
[2022-08-02 06:30] LABS: Abs Immature Grans 0.04 10^3/uL (0.0-0.06); Absolute Basophil Count 0.08 10^3/uL (0.0-0.2); Absolute Eosinophil Count 0.19 10^3/uL (0.0-0.7); Absolute Lymphocyte Count 2.42 10^3/uL (1.2-3.4); Absolute Monocyte Count 0.75 10^3/uL (0.1-0.8); Absolute Neutrophil Count 7.68 10^3/uL (1.2-6.7); Basophils % 0.7; Eosinophils % 1.7; HCT 39.6 % (36.0-46.0); HGB 13.7 g/dL (11.2-15.7); Immature Grans % 0.4; Lymphocytes % 21.7; MCH 33.8 pg (27.0-33.0); MCHC 34.6 % (32.0-36.0); MCV 98 fL (80-95); MPV 9.3 fL (8.0-11.0); Monocytes % 6.7; Neutrophils % 68.8; Platelet Count 179 10^3/uL (130-400); RBC 4.05 10^6/uL (3.93-5.22); RDW 12.9 % (11.7-14.6); RDW-SD 46.1 fL; WBC 11.16 10^3/uL (4.4-10.8)
[2022-08-02 08:18] LABS: Anion Gap 3.5 mmol/L (3-11); BUN 12 mg/dL (7-18); CO2 33.5 mmol/L (21.0-32.0); CREATININE 0.5 mg/dL (0.55-1.02); Calcium 8.6 mg/dL (8.5-10.1); Chloride 101 mmol/L (98-107); Estimated GFR 104.02 (mL/min/1.73m2); Glucose 97 mg/dL (74-106); Magnesium 1.9 mg/dL (1.8-2.4); Sodium 138 mmol/L (136-145)
[2022-08-02] MEDS: Albuterol/Ipratropium 3 ML UPD VIAL UPD ×2 (09:30→12:50)
[2022-08-02] MEDS: guaiFENesin 600 MG TABCR 1200 MG PO ×2 (09:37→19:06)
[2022-08-02] MEDS: Lisinopril 20 MG TAB PO (09:37)
[2022-08-02] MEDS: Omeprazole 20 MG CAPCR PO (09:38)
[2022-08-02] MEDS: Azithromycin 250 MG TAB 500 MG PO (09:38)
[2022-08-02] MEDS: predniSONE 20 MG TAB 40 MG PO (09:38)
--- NOTE | 2022-08-02 16:05 | PDOC.CMPRO ---
- If Service Date Differs Date of service: 08/02/22 Time of Service: 16:05 Care Management Progress Note S/O: Barby was sitting on the side of the bed when CM met with her. 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 She adamantly refuses to accept home oxygen and reports she will not be leaving with home O2. She is quite pleasant in interaction, reviewing many recent losses including a sister and [id number] and son within the last year. Discussed grief process, supports and processing; Barby reports having a large, supportive family (12 siblings) and discussing these losses on going with her daughter. She reports sometimes the grief sneaks up on her unexpectedly, she shares finding a new song that gave her comfort today and sending it to her daughter. She shares that her niece gave her the advice to feel what she is feeling, CM validated these sentiments and continues to follow. A: 67 year old female admitted to [facility] 07/31/22 P: Barby will be discharged home with no services when medically cleared by provider, she will resume outpatient OT a Orthopedics. She will follow up with her PCP, pulmonology and plan of care as instructed. She will be transported home by her , Wade via private vehicle when ready. CM will continue to follow.
--- NOTE | 2022-08-02 19:21 | W.PM.PROGNOT ---
Date of Service Date of service: 08/02/22 Time of Service: 19:21 Assessment and Plan Assessment and plan (1) Acute exacerbation of chronic obstructive pulmonary disease: Status: Acute Assessment and plan: Evidence of emphysema by CT. Has never had PFTs. No evidence of PNA on CTA. Suspect acute bronchitis. Continue azithromycin, steroids, nebs. Check exercise oximetry. Encourage pulmonary toilet. Will need outpatient PFTs. Encouraged tobacco cessation - the patient is talking about quitting cold turkey. (2) Hypoxia: Status: Acute Assessment and plan: No longer requiring O2 at rest. Will check exercise oximetry. RT has reviewed the risk of fire w/ smoking/O2 use with the patient and . (3) Smoker: Status: Acute Assessment and plan: Long conversation re tobacco cessation. The patient is interested in quitting cold turkey. (4) Essential hypertension: Status: Acute Assessment and plan: Stable - continue home Lisinopril (5) Hyponatremia: Status: Resolved Assessment and plan: No lung masses on CT. (6) Seizure disorder: Status: Chronic Assessment and plan: Continue dilantin. Dilantin level is her baseline. (7) DVT prophylaxis: Status: Acute Assessment and plan: SC Enoxaparin (8) Discharge planning issues: Status: Acute Assessment and plan: Full code Continues to require hospitalization. Anticipate discharge home tomorrow. The patient refuses O2 on discharge. Subjective Subjective Interval history since last seen: Ms Dugan states she is feeling better. She denies dizziness, chest pain, shortness of breath is better, denies n/v. Got off of oxygen at rest this afternoon. Does not want to go home on oxygen. Exam Narrative Exam Narrative: General: Pleasant middle-aged female who is sitting comfortably at the side of the bed, A&Ox3, no dyspnea/tachypnea/cyanosis on RA HEENT: EOMI, MMM Heart: RRR, no m/r/g Lungs: Very diminished breath sounds B Abdomen: soft, nontender, nondistended Extremities: no edema BLEs Objective Last Vital Signs Temp 37.4 C 08/02/22 15:41 Pulse 74 08/02/22 15:41 Resp 20 08/02/22 15:41 BP 133/83 08/02/22 15:41 Pulse Ox 94 08/02/22 17:56 Laboratory Results - last 24 hr 08/02/22 08/02/22 08/02/22 06:21 06:21 07:45 WBC 11.16 H RBC 4.05 Hgb 13.7 D Hct 39.6 MCV 98 H MCH 33.8 H MCHC 34.6 RDW 12.9 Plt Count 179 MPV 9.3 Immature Gran % 0.4 Neutrophils % 68.8 Lymphocytes % 21.7 Monocytes % 6.7 Eosinophils % 1.7 Basophils % 0.7 Nucleated RBC % 0.0 Absolute Neutrophils 7.68 H Absolute Lymphocytes 2.42 Absolute Monocytes 0.75 Absolute Eosinophils 0.19 Absolute Basophils 0.08 Sodium Cancelled 138 Potassium Cancelled 4.0 Chloride Cancelled 101 Carbon Dioxide Cancelled 33.5 H Anion Gap Cancelled 3.5 BUN Cancelled 12 Creatinine Cancelled 0.5 L Est GFR (CKD-EPI 2020) Cancelled 104.02 Glucose Cancelled 97 Calcium Cancelled 8.6 Magnesium Cancelled 1.9 PAWSS Have you Been Recently Intoxicated or Drunk Within the Last 30 days?: No Have you Ever Experienced Previous Episodes of Alcohol Withdrawal?: No Have you ever Experienced Withdrawal Seizures?: No Have you ever Experienced Delirium Tremens(DT)s?: No Have you ever undergone Alcohol Rehabilitation Treatment (i.e, inpt ot outpatient treatment programs)?: No Have you ever Experienced Blackouts?: No Have you ever Combined Alcohol with other Downers within the last 90 days?: No Have you ever Combined Alcohol with any other Substance of Abuse during the last 90 days?: No Positive Blood Alcohol level on Presentation? [PCS.BAL]: No Evidence of Increased Autonomic Activity (i.e. HR>120, tremor, sweating, agitation, nausea)?: No Result: 0 Time Spent with Patient Time Spent with Patient: 25-34 minutes Time was spent: preparing to see the patient(eg.review tests), obtaining and/or reviewing separately otained hiistory, ordering medications,tests, procedures, referring, communicating with other health healthcare social worker, indepentently interpreting results, counseling the patient and care coordination
[2022-08-03 03:55] VITALS: BP 136/83; PULSE 75; RESP 18; TEMP 36.9; O2SAT 92
[2022-08-03 08:25] VITALS: BP 143/84; PULSE 79; RESP 16; TEMP 36.8; O2SAT 86
[2022-08-03] MEDS: Azithromycin 250 MG TAB 500 MG PO (08:54)
[2022-08-03] MEDS: guaiFENesin 600 MG TABCR 1200 MG PO (08:55)
[2022-08-03] MEDS: Lisinopril 20 MG TAB PO (08:55)
[2022-08-03] MEDS: Omeprazole 20 MG CAPCR PO (08:55)
[2022-08-03] MEDS: predniSONE 20 MG TAB 40 MG PO (08:56)
--- NOTE | 2022-08-03 09:05 | PDOC.CMPRO ---
- If Service Date Differs Date of service: 08/03/22 Time of Service: 09:05 Care Management Progress Note S/O: Barby continues to be closely followed by respiratory, anticipate exercise oximetry today to determine O2 requirements though Barby has stated she will not accept home oxygen. CM continues to follow. A: 67 year old female admitted to [facility] 07/31/22 P: Barby will be discharged home with no services when medically cleared by provider, she will resume outpatient OT a Orthopedics. She will follow up with her PCP, pulmonology and plan of care as instructed. She will be transported home by her , Wade via private vehicle when ready. CM will continue to follow.
[2022-08-03] MEDS: Albuterol/Ipratropium 3 ML UPD VIAL UPD (09:33)
[2022-08-03 10:10] VITALS: PULSE 82; PULSE 86; PULSE 89; PULSE 94; O2SAT 87; O2SAT 90; O2SAT 92
[2022-08-03 11:56] VITALS: BP 139/82; PULSE 84; RESP 14; TEMP 35.9; O2SAT 92
[2022-08-03 14:52] VITALS: BP 132/84; PULSE 78; RESP 17; TEMP 37; O2SAT 91
[2022-08-03 15:46] VITALS: PULSE 84; PULSE 85; PULSE 89; O2SAT 88; O2SAT 92; O2SAT 93
--- NOTE | 2022-08-03 15:55 | PHA.REVIEW2 ---
Pharmacy Admission Review - Admission Clinical Review (Last Reviewed 07/31/22 @ 14:29 by Tamanna Wellington NP) Hypoxia (Acute) Discharge planning issues (Acute) DVT prophylaxis (Acute) Acute exacerbation of chronic obstructive pulmonary disease (Acute) Smoker (Acute) Essential hypertension (Acute) tetracycline Allergy (Mild, Verified 07/31/22 14:23) Rash cephalexin monohydrate [From Keflex] Allergy (Unknown, Verified 07/31/22 14:23) UNKNOWN Resuscitation Status Full Code Height 5 ft Weight 46.1 kg - Renal Dosing Renal Dosing: BUN 12 mg/dL (7-18) 08/02/22 07:45 Creatinine 0.5 mg/dL (0.55-1.02) L 08/02/22 07:45 Medications needing adjustments: Reviewed (crcl = 40, current meds OK) - Anticoagulation Anticoagulation: Hgb 13.7 g/dL (11.2-15.7) D 08/02/22 06:21 Hct 39.6 % (36.0-46.0) 08/02/22 06:21 Plt Count 179 10^3/uL (130-400) 08/02/22 06:21 Creatinine 0.5 mg/dL (0.55-1.02) L 08/02/22 07:45 DVT Prophylaxis: Reviewed Medications: Enoxaparin (enoxaparin 40 mg daily) Therapeutic Anticoagulation: N/A - Opiate Usage Evaluate Pain Scale/Pains Meds: N/A - Relevant Labs Sodium 138 mmol/L (136-145) 08/02/22 07:45 Potassium 4.0 mmol/L (3.5-5.1) 08/02/22 07:45 Chloride 101 mmol/L (98-107) 08/02/22 07:45 Magnesium 1.9 mg/dL (1.8-2.4) 08/02/22 07:45 Electrolytes, C-Reactive P, ESR: Reviewed - DM Control DM Control: Glucose 97 mg/dL (74-106) 08/02/22 07:45 DM Control: N/A - Cardiac Review Cardiac Review: Troponin I < 50 ng/L (<or=60) 07/31/22 16:57 BP, HR, EF%: Reviewed (hypertension, stable on lisinopril 20 mg daily) - Qtc Review QTc: Reviewed (QTc = 420 on 07/31) - IV to PO Switch IV Medications: N/A (not on any IV meds) - Home Meds Home Med List reviewed: Reviewed (takes brand name Dilantin, we are using her own here as we do not stock the brand product) - Current meds Current Medication Order Review: Reviewed Antibiotic Review - Pharmacy Antibiotic Review Pharmacy Antibiotic Activity: 48 hour review, Antibiotic de-escalation, Reviewed, no change (Flagging on antibiotic surveillance for 48 hr review + possible de-escalation. She is currently doing well on day 4 of azithromycin 500 mg PO daily, ?consider dc after day 5 tomorrow)
--- NOTE | 2022-08-03 16:18 | CMPROGNOTE_ITS ---
- If Service Date Differs Date of service: 08/03/22 Time of Service: 16:18 Care Management Progress Note S/O: Barby remains inpatient, anticipate exercise oximetry today; she continues to refuse home O2 at this time. CM continues to follow. She adamantly refuses to accept home oxygen and reports she will not be leaving with home O2. She is quite pleasant in interaction, reviewing many recent losses including a sister and [id number] and son within the last year. Discussed grief process, supports and processing; Barby reports having a large, supportive family (12 siblings) and discussing these losses on going with her daughter. A: 67 year old female admitted to [facility] 07/31/22 P: Barby will be discharged home with no services when medically cleared by provider, she will resume outpatient OT a Orthopedics. She will follow up with her PCP, pulmonology and plan of care as instructed. She will be transported home by her , Wade via private vehicle when ready. CM will continue to follow.
--- NOTE | 2022-08-03 16:41 | DSE_ITS ---
Date of service: 08/03/22 Time of Service: 16:43 DS: Diagnosis Discharge Diagnosis (1) Acute exacerbation of chronic obstructive pulmonary disease: Status: Acute (2) Hypoxia: Status: Acute (3) Smoker: Status: Acute (4) Essential hypertension: Status: Acute (5) Hyponatremia: Status: Resolved (6) Seizure disorder: Status: Chronic Discharge Plan Disposition Patient Disposition: Home Condition: Improving Discharge Details Reason For Visit: COPD Exacerbation Admit Date/Time: 07/31/22 17:31 Admit Provider: Liberty Ashford Attending Provider: Liberty Ashford Primary Care Provider: BobbyDanuta Hospital Course Hospital Course: Ms Dugan is a 67 year old female with PMHx of tobacco abuse, hypertension, seizure disorder, recent leg injury, who has never been previously diagnosed with COPD, who was admitted to [facility] hospitalist service on 07/31/22 with acute bacterial bronchitis causing what was likely a COPD exacerbation. The patient does have evidence of emphysema and hyperinflation on chest imaging. She was saturating 88% on RA. She received empiric azithromycin (had a cough productive of purulent sputum), systemic steroids, scheduled and prn nebs and was encouraged to use IS and acapella. She steadily improved on this regimen and was able to be weaned off of oxygen. On discharge, her exercise walk revealed the lowest O2 sat of 88% very transiently on RA without symptoms of shortness of breath while walking and talking. She is being discharged to complete a steroid taper, two more days of antibiotics, and with an albuterol inhaler. She is also being referred for an outpatient PFT. She was advised to quit smoking and would like to do it cold turkey. Care for patient as well as completion of her discharge summary on day of discharge took 45 minutes. Home Meds and New Rx's Prescriptions: New albuterol sulfate [Ventolin HFA] 90 mcg/actuation Hfa Aerosol Inhaler 2 puff inhalation Q4H PRN PRN (Reason: shortness of breath or wheezing) Qty: 8.5 0RF azithromycin 250 mg Tablet 500 mg PO DAILY Qty: 4 0RF guaifenesin [Mucus Relief ER] 600 mg Tablet Extended Release 12hr 1,200 mg PO BID PRN PRN (Reason: cough) Qty: 30 0RF omeprazole 20 mg Capsule,Delayed Release(Dr/Ec) 20 mg PO DAILY@0730 Qty: 10 0RF prednisone 10 mg tablet See Rx Instructions .ROUTE .COMPLEX Qty: 16 0RF Rx Instructions: 40 mg PO daily x 1 more day, then 30 mg PO daily x 2 days, then 20 mg PO daily x 2 days, then 10 mg PO daily x 2 days, then stop Continued phenytoin sodium extended [Dilantin Extended] 100 mg capsule See Rx Instructions PO .COMPLEX Qty: 120 12RF Rx Instructions: 100 mg qid ; Brand name only. Generic ineffective. lisinopril 20 mg tablet See Rx Instructions .ROUTE .COMPLEX Qty: 30 12RF Dose Instruction: TAKE ONE TABLET BY MOUTH EVERY DAY Rx Instructions: TAKE ONE TABLET BY MOUTH EVERY DAY Discharge Instructions Instructions: Albuterol (By breathing), Prednisone (By mouth), Azithromycin (By mouth), How to Stop Smoking (DC), COPD (Chronic Obstructive Pulmonary Disease) (DC), Pulmonary Function Tests (DC) Additional Instructions: Finish your antibiotics and steroids as described. Return to the hospital with any fever, bleeding, chest pain, or shortness of breath. Follow up with your PCP in 1-2 weeks. PFTs in 2 weeks. You may return to work on 08/09/22. Congratulations on stopping smoking! (Stick with it! We are proud of you!) Stand Alone Forms: Nursing Discharge Form Referrals: Danuta Rosales NP [Primary Care Provider] - (Call the office to make an appointment in the next 1-2 weeks ) Activity:: Activity as Tolerated Equipment/Supplies:: No Equipment Needed Diet:: As Tolerated Discharge Orders Discharge Orders: Discharge Order (Routine); Ordered 08/03/22 Ordered By: Liberty Ashford Other Ambulatory Orders: PFT Spirometry (Routine) Timeframe: 2 Weeks Facility: [facility] - Location: Respiratory Therapy Ordered By: Liberty Ashford DS: Summary Time Spent with Patient providing and/or coordinating discharge services: Greater than 30 minutes Status at Discharge Functional status at discharge: independent ambulation Overall status at discharge: patient is progressing back to baseline Mental Status: mental status grossly normal Speech and Movement: speech and movement normal Mood: congruent mood Affect: normal affect Exam Narrative Exam Narrative: General: Pleasant middle-aged female who is sitting comfortably at the side of the bed, A&Ox3, no dyspnea/tachypnea/cyanosis on RA HEENT: EOMI, MMM Heart: RRR, no m/r/g Lungs: mild expiratory wheezing bilaterally Abdomen: soft, nontender, nondistended Extremities: no edema BLEs Psych Mental Status: mental status grossly normal Speech and Movement: speech and movement normal Mood: congruent mood Affect: normal affect DS: Data Vitals/I&O Vitals and I&O: Vital Signs Temperature 37.0 C 08/03/22 14:52 Temperature Source Tympanic 08/03/22 14:52 Pulse 78 08/03/22 14:52 Pulse Rhythm Regular 08/02/22 23:08 Pulse 88 07/31/22 23:40 Respiratory Rate 17 08/03/22 14:52 Respiratory Effort Normal, Non-Labored, Short of Breath 08/02/22 23:08 Respiratory Depth Normal 08/02/22 23:08 Respiratory Pattern Normal 08/02/22 23:08 Blood Pressure 132/84 08/03/22 14:52 Blood Pressure Mean 75 08/01/22 09:32 Blood Pressure Position Sitting 07/31/22 23:51 Pulse Oximetry 91 L 08/03/22 14:52 Oxygen Delivery Method Room Air 08/03/22 14:52 Oxygen Flow Rate 0 08/03/22 14:52 Pain Level 0 08/03/22 08:25 Intake & Output 08/02/22 08/03/22 08/03/22 23:59 11:59 23:59 Intake Total 240 / 240 Balance 240 / 240 Intake: Oral 240 / 240 Other: Comment voided x1 patient reports using toilet recently Stool Size Moderate Voiding Methods Toilet Toilet Data Completed and Pending Completed studies during hospitalization [Text1]: CTA chest: 1. No evidence of acute pulmonary emboli.? No evidence of pulmonary infarction. 2. No infiltrates nor intrathoracic adenopathy. 3. No pleural effusions. CXR; No acute pulmonary findings on this single AP portable view of the chest. Hyperinflation again noted. PFSH All Active Problems (Updated 08/01/22 @ 09:00 by Liberty Ashford MD) Hypoxia (Acute) Discharge planning issues (Acute) DVT prophylaxis (Acute) Seizure disorder (Chronic) Acute exacerbation of chronic obstructive pulmonary disease (Acute) Chondromalacia patellae, right knee (Acute) Effusion, right knee (Acute) Contusion of right thigh (Acute) Osteochondral defect of patella (Acute) Right knee pain (Acute) Hematoma (Acute) Right calf pain (Acute) Lipoma of right lower extremity (Acute) Fatigue (Acute) Feels cold (Acute) Smoker (Acute) Lung cancer screening declined by patient (Acute) Vaccine refused by patient (Acute) Diverticula of colon (Acute) Abdominal pain (Acute) Abdominal distention (Acute) Screening for cholesterol level (Acute) Colon cancer screening (Acute) Abdominal bloating (Acute) Mammogram declined (Acute) Family history of colon cancer (Acute) Essential hypertension (Acute) Macrocytosis (Chronic 02/18/14) B12 NL 2009 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 states I had abnormal blood vessels, i had 2 seizues which was 20 years ago and johnie been dilantin every since, and havent had a seizre History of colonoscopy (~06/06/20) Hx of elbow surgery Hx of shoulder surgery Family History Mother Angina pectoris Father Dementia Angina pectoris Social History Smoking/Tobacco Use Status: Current every day Quit status: not considering quitting Smoking risk assessment performed?: Yes Alcohol Intake: current Alcohol Intake frequency: 0-2 drinks per day Alcohol t ype: beer Previous attempts at quittin Drug use: Never Substance use type: does not use Household members: spouse Housing: house Number of Children: 4 Communication Needs: None Education Level: high school Current gender identity: female What is your relationship status?: Panel score (0-1 are the most socially isolated patients): 1 What type of physical activity do you participate in: walking Frequency: daily Seatbelt use: always Working smoke detector in home: Yes Do you feel safe at home: Yes Do you feel safe in your relationship?: Yes Time Spent with Patient Time Spent with Patient: 45-69 minutes Time was spent: preparing to see the patient(eg.review tests), obtaining and/or reviewing separately otained hiistory, ordering medications,tests, procedures, referring, communicating with other health healthcare specialist, indepentently interpreting results, counseling the patient and care coordination
[2022-08-03] MEDS: Albuterol HFA 8 GM 60 PUFF INH IH (17:05)
[2022-08-04 08:56] LABS: Lab Add On Test DONE
== END 2022-08-03 17:23 | disposition home or self-care (01) | DRG 191 ==
LOC: ER 23:35 → ICU 23:46 → MS 08-01 10:57
PROVIDERS: Registered Nurse Emergency; Admitting Provider Internal Medicine; Emergency Provider Emergency Medicine; PCP Nurse Practitioner; Visit Provider Internal Medicine
DX: J44.0 Chronic obstructive pulmonary disease with (acute) lower respiratory infection (principal); E87.1 Hypo-osmolality and hyponatremia; J44.1 Chronic obstructive pulmonary disease with (acute) exacerbation; R09.02 Hypoxemia; F17.210 Nicotine dependence, cigarettes, uncomplicated; I10 Essential (primary) hypertension; G40.909 Epilepsy, unspecified, not intractable, without status epilepticus; M22.41 Chondromalacia patellae, right knee; Z80.0 Family history of malignant neoplasm of digestive organs; D75.89 Other specified diseases of blood and blood-forming organs; J20.9 Acute bronchitis, unspecified
CPT/HCPCS: 36415; 71275; 80048; 80053; 84145; 87635; 87637; 93005; 94618; 94640; 96361; 96372; 96374; 99285; 71045; 80185; 83735; 84484; 85025; 85379; 87070; 87205; 93010; 94664; 94667; 94668; 94760; 99222; 99232; 99239; J1650; J2930; J3490; J7512; J7613; J7620; J7644

== ENCOUNTER 2022-09-09 01:15 | Outpatient (CLI) | payer BC, SELFPAY ==
--- NOTE | 2022-09-09 09:30 | DI.RAD_ITS ---
Exam(s) XR KNEE RT 3V AP,LAT,INGA EXAM: XR KNEE RT 3V AP,LAT,INGA CLINICAL HISTORY: right knee pain and instability,m22.41,chondromalacia patella. TECHNIQUE: 2D digital imaging was performed. COMPARISON: No exams were available for comparison FINDINGS: 3 views No evidence of acute fracture. Small amount of increased joint fluid. No degenerative joint space n arrowing. No osteophytes. No osseous lesions. Vascular calcification noted femoral and popliteal a rteries as well as the runoff vessels of the calf. IMPRESSION: No significant osseous findings. Small knee joint effusion. DATA REPOSITORY: RADIATION DOSE DELIVERED:
== END 2022-09-09 01:35 ==
LOC: DI 01:15
PROVIDERS: PCP Nurse Practitioner; Visit Provider Nurse Practitioner Family
DX: J44.1 Chronic obstructive pulmonary disease with (acute) exacerbation; M22.41 Chondromalacia patellae, right knee
CPT/HCPCS: 73562

== ENCOUNTER 2022-11-19 02:22 | Outpatient (CLI) | payer BC, SELFPAY ==
--- OUTSIDE RECORDS SUMMARY | 2022-11-19 02:25 | XMS_ITS | Continuity of Care Document ---
Author Name Unknown Organization [facility] Address [address] [place] [address] Encounter LTTL_[place] FIN NBR [id number] Date(s): 10/17/22 - 10/17/22 [facility] [address], [place] [address] Encounter Diagnosis COPD exacerbation(Discharge Diagnosis) - 10/17/22 Parainfluenza virus infection(Discharge Diagnosis) - 10/17/22 Discharge Disposition: Home or Self Care Attending Physician: Kaity Shah MD Admitting Physician: Kaity Shah MD Allergies, Adverse Reactions, Alerts Substance Reaction Severity Status tetracycline Hives Mild Active Functional Status 10/17/22 Other exposure to Infectious Disease Non e Medications albuterol 1.25 mg/3 mL (0.042%) inhalation solution 1.25 mg = 3 mL, NEB, TID, X 30 days, # 270 mL, 0 Refill(s), 11/16/22 13:23:00 EDT Start Date: 10/17/22 Stop Date: 11/16/22 Status: Ordered albuterol 90 mcg/inh aerosol inhaler 2 puffs, Inhale, every 4 hr, PRN as needed for wheezing, # 6.7 g, 0 Refill(s) Start Date: 10/14/22 Status: Ordered lisinopril 20 mg oral tablet 20 mg = 1 tab, Oral, Daily, # 30 tab, 0 Refill(s) Start Date: 10/14/22 Status: Ordered nebulizer machine with tubing and mask nebulizer machine with tubing and mask, nebulizer machine with tubing and mask, Supply, See instructions, # 1 EA, 0 Refill(s) Start Date: 10/17/22 Status: Ordered phenytoin 100 mg oral capsule, extended release 200 mg = 2 cap, Oral, Daily, in am... brand name only, 0 Refill(s) Start Date: 10/14/22 Status: Ordered phenytoin 100 mg oral capsule, extended release 100 mg = 1 cap, Oral, BID, noon and 1600 .. brand name only, 0 Refill(s) Start Date: 10/14/22 Status: Ordered predniSONE 10 mg oral tablet See Instruction, Oral, Daily, 6 tabs daily x3 days, 4 tabs daily x3 days, 2 tabs daily x3 days, 1 tab daily x3 days, # 39 tab, 0 Refill(s), Pharmacy: [id number], [phone], cm, 10/14/22 7:10:00 EDT, Height/Length Dosing, 46.27, kg, 10/14/22 7:10:00... Start Date: 10/14/22 Status: Ordered Symbicort 80 mcg-4.5 mcg/inh inhalation aerosol 2 puffs, Inhale, BID, # 10.2 g, 0 Refill(s) Start Date: 10/14/22 Status: Ordered Problem List Condition Confirmation Course Effective Dates Status [facility] Informant COPD exacerbation Confirmed Active Results Laboratory List Name Date .Morphology (LTTL) 10/17/22 CBC w/ Diff 10/17/22 Comprehensive Metabolic Panel (CMP) 10/17 Automated Diff 10/17/22 Most recent to oldest [Reference Range]: 1 WBC [4.8-10.8 K/mcL] 19.6 K/mcL 1 *HI* (10/17/22 10:39 AM) RBC [4.20-5.40 Million/mcL] 4.20 Million /mcL (10/17/22 10:39 AM) Neutro Auto [42.2-75.2 %] 86.2 % *HI* (10/17/22 10:39 AM) Lymph Auto [20.5-51.1 %] 6.8 % *LOW* (10/17/22 10:39 AM) Garfield Auto [1.7-9.3 %] 6.2 % (10/17/22 10:39 AM) Basophil Auto [0.0-0.8 %] 0.3 % (10/17/22 10:39 AM) BUN [8-26 mg/dL] 14 mg/dL (10/17/22 10:39 AM) Glucose Level [74-106 mg/dL] 134 mg/dL *HI* (10/17/22 10:39 AM) Potassium Level [3.5-5.1 mmol/L] 4.9 mmo l/L (10/17/22 10:39 AM) Baso Absolute [0.0-0.2 K/mcL] 0.1 K/mcL (10/17/22 10:39 AM) MCV [81.0-99.0 fL] 101.7 fL *HI* (10/17/22 10:39 AM) RBC Morph [Normal] Abnormal *ABN* (10/17/22 10:39 AM) AST [15-41 IntlUnit/L] 24 IntlUnit/L (10/17/22 10:39 AM) ALT [14-54 IntlUnit/L] 25 IntlUnit/L (10/17/22 10:39 AM) MCHC [32.0-36.0 g/dL] 32.3 g/dL (10/17/22 10:39 AM) Osmolality [275-295 mOsm/kg] 269 mOsm/kg *LOW* (10/17/22 10:39 AM) Sodium Level [134-143 mmol/L] 133 mmol/L *LOW* (10/17/22 10:39 AM) Lymph Absolute [1.2-3.4 K/mcL] 1.3 K/mcL (10/17/22 10:39 AM) Hct [37.0-47.0 %] 42.7 % (10/17/22 10:39 AM) Calcium Level [8.9-10.3 mg/dL] 9.2 mg/dL (10/17/22 10:39 AM) Garfield Absolute [0.1-0.6 K/mcL] 1.2 K/mcL *HI* (10/17/22 10:39 AM) Albumin Level [3.5-5.0 g/dL] 4.0 g/dL (10/17/22 10:39 AM) Protein Total [6.5-8.1 g/dL] 7.8 g/dL (10/17/22 10:39 AM) MCH [27.0-31.0 pg] 32.9 pg *HI* (10/17/22 10:39 AM) Neutro Absolute [1.4-6.5 K/mcL] 16.9 K/m cL *HI* (10/17/22 10:39 AM) Bilirubin Total [0.2-1.2 mg/dL] 0.6 mg/d L (10/17/22 10:39 AM) Hgb [12.0-16.0 g/dL] 13.8 g/dL (10/17/22 10:39 AM) Alk Phos [38-130 IntlUnit/L] 78 IntlUnit /L (10/17/22 10:39 AM) MPV [7.4-10.4 fL] 8.7 fL (10/17/22 10:39 AM) Platelets [130-400 K/mcL] 254 K/mcL (10/17/22 10:39 AM) CO2 [22-32 mmol/L] 33 mmol/L *HI* (10/17/22 10:39 AM) Eos Absolute [0.0-0.2 K/mcL] 0.0 K/mcL (10/17/22 10:39 AM) Macrocyte 1+ *ABN* (10/17/22 10:39 AM) Chloride Level [98-111 mmol/L] 92 mmol/L *LOW* (10/17/22 10:39 AM) RDW-CV [11.5-14.5 %] 13.4 % (10/17/22 10:39 AM) A/G Ratio 1.1 *NA* (10/17/22 10:39 AM) BUN/Creat Ratio [8.0-20.0] 26.9 *HI* (10/17/22 10:39 AM) Globulin 3.8 *NA* (10/17/22 10:39 AM) Imm Gran Absolute 0.08 *NA* (10/17/22 10:39 AM) Imm Gran Auto [0.0-0.5 %] 0.4 % (10/17/22 10:39 AM) Slide Review Morph Only (10/17/22 10:39 AM) Creatinine Level [0.44-1.00 mg/dL] 0.52 mg/dL (10/17/22 10:39 AM) Plt Estimation Normal (10/17/22 10:39 AM) Anion Gap [3.0-12.0] 8.0 (10/17/22 10:39 AM) Eos, Auto [0.00-3.00 %] 0.10 % (10/17/22 10:39 AM) eGFR CKD-EPI [>=60 mL/min/1.73 m2] 103 m L/min/1.73 m2 (10/17/22 10:39 AM) 1Result Comment: Results verified by repeat analysis. Radiology Reports * Exam Date Time Procedure Performing Provider Status 10/17/22 11:[address] Angio Chest Anayeli uGnn; Auth (V erified) Notes: (CT Angio Chest) Reason For Exam: r/o pe CT Angio Chest PROCEDURE INFORMATION: Exam: CTA Chest With Contrast Exam date and time: 10/17/2022 10:52 AM Age: 67 years old Clinical indication: Shortness of breath; Additional info: R/O pe TECHNIQUE: Imaging protocol: Computed tomographic angiography of the chest with contrast. Exam focused on the arteries. 3D rendering (Not supervised by radiologist): MIP and/or 3D reconstructed images were created by the technologist. Radiation optimization: All CT scans at this facility use at least one of these dose optimization techniques: automated exposure control; mA and/or kV adjustment per patient size (includes targeted exams where dose is matched to clinical indication); or iterative reconstruction. Contrast material: ISOVUE 370; Contrast volume: 100 ml; Contrast route: INTRAVENOUS (IV); REPORTING DATA: Count of CT and Cardiac NM exams in prior 12 months: This patient has received 0 known CTs and 0 known cardiac nuclear medicine studies in the 12 months prior to the current study. COMPARISON: CT ANGIO CHEST 05/31/2018 2:13 PM FINDINGS: Pulmonary arteries: No pulmonary embolus in the opacified pulmonary arteries. Aorta: Calcification and ectasia of the thoracic aorta. Lungs: Tracheobronchial calcification. Emphysematous change , interstitial prominence, and asymmetric airspace disease (left greater than right). Pleural spaces: Trace left pleural effusion. Heart: Coronary artery calcification. Lymph nodes: Subcentimeter lymph nodes. Upper abdomen: Questionable wall thickening in the nondistended stomach. Dilatation of the incompletely visualized renal pelves. Bones/joints: Degenerative change. Soft tissues: Unremarkable. IMPRESSION: 1. No pulmonary embolus in the opacified pulmonary arteries. 2. Emphysematous change , interstitial prominence, and asymmetric airspace disease (left greater than right). 3. Additional findings as described above. COMMENTS: In the absence of a history or active diagnosis of lung cancer, it is recommended that this patient with emphysema be evaluated for enrollment in a low dose CT lung cancer screening program. THIS DOCUMENT HAS BEEN ELECTRONICALLY SIGNED BY JARAD ANDERSON MD on 10/17/2022 11:54 AM Final Signed by: Jarad Anderson MD Signed (Electronic Signature): 10/17/2022 11:54 am Vital Signs Most recent to oldest [Reference Range]: 1 2 Temperature Temporal Artery [36-38 Deg C ] 36.4 Deg C (10/17/22 9:52 AM) Peripheral Pulse Rate [60-100 bpm] 75 bp m (10/17/22 12:06 PM) 89 bpm (10/17/22 9:52 AM) Respiratory Rate [12-24 br/min] 18 br/mi n (10/17/22 9:52 AM) Blood Pressure [90-140/60-90 mmHg] 140/7 7mmHg (10/17/22 12:06 PM) 159/92mmHg *HI* (10/17/22 9:52 AM) Mean Arterial Pressure Cuff 94 mmHg (10/17/22 12:06 PM) Weight Dosing 46.27 kg (10/17/22 10:10 AM) Weight Estimated 46.27 kg (10/17/22 9:52 AM) Height/Length Dosing 154.000 cm (10/17/22 10:10 AM) Height/Length Estimated 154.000 cm (10/17/22 9:52 AM) Social History Social History Type Response Tobacco Former tobacco user Tobacco Use:. Sex Hospital Discharge Instructions Patient Education 10/17/2022 11:15:22 Chronic Obstructive Pulmonary Disease Chronic Obstructive Pulmonary Disease Chronic obstructive pulmonary disease (COPD) is a long-term (chronic) condition that affects the lungs. COPD is a general term that can be used to describe many different lung problems that cause lung inflammation and limit airflow, including chronic bronchitis and emphysema. If you have COPD, your lung function will probably never return to normal. In most cases, it gets worse over time. However, there are steps you can take to slow the progression of the disease and improve your quality of life. What are the causes? This condition may be caused by: ??? Smoking. This is the most common cause. ??? Certain genes passed down through families. What increases the risk? The following factors may make you more likely to develop this condition: ??? Being exposed to secondhand smoke from cigarettes, pipes, or cigars. ??? Being exposed to chemicals and other irritants, such as fumes and dust in the work environment. ??? Having chronic lung conditions or infections. What are the signs or symptoms? Symptoms of this condition include: ??? Shortness of breath, especially during physical activity. ??? Chronic cough with a large amount of thick mucus. Sometimes, the cough may not have any mucus (dry cough). ??? Wheezing and rapid breathing. ??? [place] or bluish discoloration (cyanosis) of the skin, especially in the fingers, toes, or lips. ??? Feeling tired (fatigue). ??? Weight loss. ??? Chest tightness. ??? Frequent infections. ??? Episodes when breathing symptoms become much worse (exacerbations). At the later stages of this disease, you may have swelling in the ankles, feet, or legs. How is this diagnosed? This condition is diagnosed based on: ??? Your medical history. ??? A physical exam. You may also have tests, including: ??? Lung (pulmonary) function tests. This may include a spirometry test, which measures your ability to exhale properly. ??? Chest X-ray. ??? CT scan. ??? Blood tests. How is this treated? This condition may be treated with: ??? Medicines. These may include inhaled rescue medicines to treat acute exacerbations as well as medicines that you take long-term (maintenance medicines) to prevent flare-ups of COPD. ??? Bronchodilators help treat COPD by dilating the airways to allow increased airflow and make your breathing more comfortable. ??? Steroids can reduce airway inflammation and help prevent exacerbations. ??? Smoking cessation. If you smoke, your health care provider may ask you to quit, and may also recommend therapy or replacement products to help you quit. ??? Pulmonary rehabilitation. This may involve working with a team of health care providers and specialists, such as respiratory, occupational, and physical therapists. ??? Exercise and physical activity. These are beneficial for nearly all people with COPD. ??? Nutrition therapy to gain weight, if you are underweight. ??? Oxygen. Supplemental oxygen therapy is only helpful if you have a low oxygen level in your blood (hypoxemia). ??? Lung surgery or transplant. ??? Palliative care. This is to help people with COPD feel comfortable when treatment is no longer working. Follow these instructions at home: Medicines ??? Take [id number] and prescription medicines only as told by your health care provider. This includes inhaled medicines and pills. ??? Talk to your health care provider before taking any cough or allergy medicines. You may need toavoid certain medicines that dry out your airways. Lifestyle ??? If you smoke, the most important thing that you can do is to stop smoking. Continuing to smoke will cause the disease to progress faster. ??? Do not use any products that contain nicotine or tobacco. These products include cigarettes, chewing tobacco, and vaping devices, such as e-cigarettes. If you need help quitting, ask your health care provider. ??? Avoid exposure to things that irritate your lungs, such as smoke, chemicals, and fumes. ??? Stay active, but balance activity with periods of rest. Exercise and physical activity will help you maintain your ability to do things you want to do. ??? Learn and use relaxation techniques to manage stress and to control your breathing. ??? Get the right amount of sleep and get quality sleep. Most adults need 7 or more hours per night. ??? Eat healthy foods. Eating smaller, more frequent meals and resting before meals may help you maintain your strength. Controlled breathing Learn and use controlled breathing techniques as directed by your health care provider. Controlled breathing techniques include: ??? Pursed lip breathing. Start by breathing in (inhaling) through your nose for 1 second. Then, purse your lips as if you were going to whistle and breathe out (exhale) through the pursed lips for 2seconds. ??? Diaphragmatic breathing. Start by putting one hand on your abdomen just above your waist. Inhale slowly through your nose. The hand on your abdomen should move out. Then purse your lips and exhale slowly. You should be able to feel the hand on your abdomen moving in as you exhale. Controlled coughing Learn and use controlled coughing to clear mucus from your lungs. Controlled coughing is a series of short, progressive coughs. The steps of controlled coughing are: 1. Lean your head slightly forward. 2. Breathe in deeply using diaphragmatic breathing. 3. Try to hold your breath for 3 seconds. 4. Keep your mouth slightly open while coughing twice. 5. Spit any mucus out into a tissue. 6. Rest and repeat the steps once or twice as needed. General instructions ??? Make sure you receive all the vaccines that your health care provider recommends, especially the pneumococcal and influenza vaccines. Preventing infection and hospitalization is very important when you have COPD. ??? Drink enough fluid to keep your urine pale yellow, unless you have a medical condition that requires fluid restriction. ??? Use oxygen therapy and pulmonary rehabilitation if told by your health care provider. If you require home oxygen therapy, ask your health care provider whether you should purchase a pulse oximeter to measure your oxygen level at home. ??? Work with your health care provider to develop a COPD action plan. This will help you know whatsteps to take if your condition gets worse. ??? Keep other chronic health conditions under control as told by your health care provider. ??? Avoid extreme temperature and humidity changes. ??? Avoid contact with people who have an illness that spreads from person to person (is contagious), such as viral infections or pneumonia. ??? Keep all follow-up visits. This is important. Contact a health care provider if: ??? You are coughing up more mucus than usual. ??? There is a change in the color or thickness of your mucus. ??? Your breathing is more labored than usual. ??? Your breathing is faster than usual. ??? You have difficulty sleeping. ??? You need to use your rescue medicines or inhalers more often than expected. ??? You have trouble doing routine activities such as getting dressed or walking around the house. Get help right away if: ??? You have shortness of breath while you are resting. ??? You have shortness of breath that prevents you from: ??? Being able to talk. ??? Performing your usual physical activities. ??? You have chest pain lasting longer than 5 minutes. ??? Your skin color is more blue (cyanotic) than usual. ??? You measure low oxygen saturations for longer than 5 minutes with a pulse oximeter. ??? You have a fever. ??? You feel too tired to breathe normally. These symptoms may represent a serious problem that is an emergency. Do not wait to see if the symptoms will go away. Get medical help right away. Call your local emergency services (911 in the [place] Do not drive yourself to the hospital. Summary ??? Chronic obstructive pulmonary disease (COPD) is a long-term (chronic) condition that affects the lungs. ??? Your lung function will probably never return to normal. In most cases, it gets worse over time. However, there are steps you can take to slow the progression of the disease and improve your quality of life. ??? Treatment for COPD may include taking medicines, quitting smoking, pulmonary rehabilitation, and changes to diet and exercise. As the disease progresses, you may need oxygen therapy, a lung transplant, or palliative care. ??? To help manage your condition, do not smoke, avoid exposure to things that irritate your lungs,stay up to date on all vaccines, and follow your health care provider's instructions for taking medicines. This information is not intended to replace advice given to you by your health care provider. Make sure you discuss any questions you have with your health care provider. Document Revised: 02/24/2021 Document Reviewed: 02/24/2021 [employer] Patient Education ?? 2021 [email or web address]. Follow Up Care 10/17/2022 09:52:04 With:primary care physician Address: When:3 to 5 days Consult note * Jesse Bhardwaj MD: PERFORM Event Display: Consultation Note Generic Authored Date: [id number] IRASEMA PANDA :1955 Age:67 years Sex:Female Visit Date:10/17/2022 Chief Complaint patient presents with report of feeling short of breath this morning. patient was discharged from med surg yesterday and sent home with O2. states EMS came and did a duoneb this morning and gave 60mgprednisone. Reason for Consultation Patient feels she can discharge too soon History of Present Illness 67-year-old female with likely COPD discharged yesterday after a 3-day hospital stay for??COPD exacerbation and parainfluenza infection.?? I informed her at time of discharge??that she should anticipate feeling sick for a number of weeks??given the way??parainfluenza infections been lingering the summer. ??She left on 2 L??of oxygen??come back in today??after??some??bronchospasm sounding??shortness of breath last night??currently on 2 L of oxygen and feeling stable compared to yesterday. Review of Systems Negative except for HPI??with shortness of breath Physical Exam Vitals & Measurements T:??36.4?C ??(Temporal Artery)?? HR:??75??(Peripheral)?? RR:??18?? BP:??140/77?? SpO2:??100%?? HT:??154.000??cm?? WT:??46.27??kg??(Estimated)?? O2 Flow Rate:??2?? O2 Therapy:??Nasal cannula?? General:??Alert and oriented, well nourished, No acute distress Eye:??PERRL, EOMI, normal conjunctiva Lungs:??Consistent with yesterday's exam reasonably clear better than a couple days prior some mildexpiratory wheezing, Non-labored respiration Heart:??Normal rate, Normal rhythm, No murmur, No gallop Abdomen:??Soft, non-tender, non-distended, normal bowel sounds, no masses Assessment/Plan 1.??COPD exacerbation??J44.1 Agree with try to get a nebulizer machine, she has a primary care appointment tomorrow??continues??current steroid dosing, no other antibiotics indicated 2.??Parainfluenza virus infection??B34.8 ? Disposition?agree with??ER treating team patient safe for discharge home, no indication foradmission, given risk of admission that include blood clots??pneumonia and??muscle wasting from immobility??she is safe for going home and being in the hospital Problem List/Past Medical History Ongoing COPD exacerbation Historical No qualifying data Medications Inpatient albuterol, 2.5 mg= 3 mL, NEB, Once, PRN Home albuterol 1.25 mg/3 mL (0.042%) inhalation solution, 1.25 mg= 3 mL, NEB, TID albuterol 90 mcg/inh aerosol inhaler, 2 puffs, Inhale, every 4 hr, PRN lisinopril 20 mg oral tablet, 20 mg= 1 tab, Oral, Daily nebulizer machine with tubing and mask, See instructions phenytoin 100 mg oral capsule, extended release, 200 mg= 2 cap, Oral, Daily phenytoin 100 mg oral capsule, extended release, 100 mg= 1 cap, Oral, BID predniSONE 10 mg oral tablet, See Instruction, Oral, Daily Symbicort 80 mcg-4.5 mcg/inh inhalation aerosol, 2 puffs, Inhale, BID Allergies tetracycline??(Hives) Social History Electronic Cigarette/Vaping Electronic Cigarette Use: Never. Tobacco Former tobacco user Tobacco Use:. Electronically Signed on 10/17/22 01:30 PM Jesse Bhardwaj MD Physician Emergency department Note * Kaity Shah MD: PERFORM, MODIFY Event Display: ED Note Physician Authored Date: [id number] AMARILYS IRASEMA N :1955 Age:67 years Sex:Female Visit Date:10/17/2022 Basic Information Time Seen: Kaity Shah MD / 10/17/2022 09:57 Chief Complaint patient presents with report of feeling short of breath this morning. patient was discharged from med surg yesterday and sent home with O2. states EMS came and did a duoneb this morning and gave 60mgprednisone. History Of Present Illness: This patient is a 67-year-old female presumed COPD based on smoking history and prior exam findingswho presents today for evaluation of shortness of breath.?? The patient had been seen 3 days ago inthe emergency department by myself and at that time she had what seemed like was likely to be a viral illness with some wheezing and hypoxia.?? Ultimately the patient was diagnosed with parainfluenza had been admitted to the hospital.?? She was discharged yesterday.?? The patient states that at 2 AM this morning she woke her up because she was having significant increased shortness of breath.?? She had been discharged on home oxygen and was on 2 L.?? The patient was evaluated by EMS andwas given nebulizer treatment, prednisone and ultimately had declined transportation because she wan walker to come here instead of being taken to [facility].?? They live in [place].?? The patient states thatshe did have some improvement with the nebulizer treatment.?? Her and her reiterate multiple times that they feel that she had been prematurely discharged given her continued shortness of breath.?? Patient voiced frustration because of her sensation of not being able to breathe well.?? She d enies any fevers or chills. ??No associated chest pain. Review of Systems: CONSTITUTIONAL:??No fevers or chills. EYES:??No change in vision. ENT:??No sore throat. ??No headache. ??No neck pain. CARDIOVASCULAR:??No chest pain, palpitations or passing out episodes. RESPIRATORY:??+cough, +shortness of breath no hemoptysis. GI:??No abdominal pain. No nausea, vomiting or diarrhea. :??No change in urination. SKIN:??No rash. NEUROLOGIC:??No numbness or weakness. MUSCULOSKELETAL:??No swelling or pain. ??No calf pain or swelling. PSYCHIATRIC:??No depression. LYMPH:??No swelling. Review of systems otherwise as stated in HPI Physical Exam Vitals & Measurements T:??36.4?C ??(Temporal Artery)?? HR:??75??(Peripheral)?? RR:??18?? BP:??140/77?? SpO2:??100%?? HT:??154.000??cm?? WT:??46.27??kg??(Estimated)?? O2 Flow Rate:??2?? O2 Therapy:??Nasal cannula?? General: ??AAOx3. ??GCS15. ??No acute distress, answering questions appropriately.?? Thin female.??Coarse cough Head: ??Atraumatic; Normocephalic Eye: ??PERRLA; EOMI; no scleral icterus / pallor ENT: moist mucous membranes; no epistaxis. No stridor. Neck: ??Active ROM intact; Trachea Midline. ??No JVD. ??No meningismus appreciated. Skin: Warm, dry Chest: ??Equal BS bilaterally. ??Very slight wheeze??more in the upper left posterior.?? Coarse cough. Heart: RRR; no murmur, rub, or gallop Abdomen: ??Soft, non-tender, non-distended, no guarding, rebound, or rigidity. No Hepatosplenomegaly Musculoskeletal: ??ROM intact of all extremities/joints without discomfort. ??Sensation grossly intact throughout. ??No obvious deformity. ??Strength Intact 5/5 throughout. ?? Neuro: Alert and oriented. Answering questions appropriately with clear speech. Motor and sensory grossly normal in all extremities.?? Medical Decision Making: This patient is a 7-year-old female with presumed COPD based on years of smoking??exam findings,??who presents today for shortness of breath.?? She was recently diagnosed with parainfluenza virus.?? Patient did not have any significant wheezing on my exam and her oxygen saturations were appropriate.?? She did have somewhat diminished breath sounds I did give her some nebulizer treatments.?? I diddo a CT PE protocol which showed no evidence of pulmonary embolus but did show emphysematous changes.?? I had a lengthy discussion with the patient and her about the exam findings and also her prognosis.?? They did not think that the cigarettes would cause as much damage to her lungs because she did not inhale them.?? At this time patient does not meet criteria for admission. ??She doeshave home oxygen. ??She was complaining that the machine makes noise and I suggested to her that she buy earplugs to try those to minimize the noise disruption.?? Patient was also prescribed??a nebulizer machine and albuterol neb.?? Dr. Bhardwaj also saw the patient and agrees she can be discharged home. Procedure No Qualifying Data Assessment/Plan 1.??COPD exacerbation??J44.1 2.??Parainfluenza virus infection??B34.8 Orders: albuterol, 2.5 mg = 3 mL, NEB, Soln, Once, PRN shortness of breath, First Dose: 10/17/22 10:21:00 EDT, Physician Stop Patient Education Chronic Obstructive Pulmonary Disease Follow Up With When Contact Information primary care physician Within 3 to 5 days Additional Instructions: Medication Reconciliation Unchanged albuterol (albuterol 90 mcg/inh aerosol inhaler)2 Puffs Inhale (breathe in) every 4 hours as neededas needed for wheezing. ?? budesonide-formoterol (Symbicort 80 mcg-4.5 mcg/inh inhalation aerosol)2 Puffs Inhale (breathe in) 2 times a day. ?? lisinopril (lisinopril 20 mg oral tablet)1 tab Oral (given by mouth) every day. ?? phenytoin (phenytoin 100 mg oral capsule, extended release)2 Capsules Oral (given by mouth) every day. in am... brand name only. ?? phenytoin (phenytoin 100 mg oral capsule, extended release)1 Capsules Oral (given by mouth) 2 timesa day. noon and 1600 .. brand name only. ?? predniSONE (predniSONE 10 mg oral tablet)See Instruction Oral (given by mouth) every day. 6 tabs daily x3 days, 4 tabs daily x3 days, 2 tabs daily x3 days, 1 tab daily x3 days. Refills: 0. Problem List/Past Medical History Ongoing COPD exacerbation Historical No qualifying data Medication Administration Given ipratropium-albuterol 0.5 mg-2.5 mg/3 mL inhalation solution, 3 mL, NEB Allergies tetracycline??(Hives) Social History Electronic Cigarette/Vaping Electronic Cigarette Use: Never. Tobacco Former tobacco user Tobacco Use:. Diagnostic Results CT Angio Chest 10/17/2022 11:[address] Angio Chest ?? 10/17/22 10:52:22 PROCEDURE INFORMATION: Exam: CTA Chest With Contrast Exam date and time: 10/17/2022 10:52 AM Age: 67 years old Clinical indication: Shortness of breath; Additional info: R/O pe ?? TECHNIQUE: Imaging protocol: Computed tomographic angiography of the chest with contrast. Exam focused on the arteries. 3D rendering (Not supervised by radiologist): MIP and/or 3D reconstructed images were created by the technologist. Radiation optimization: All CT scans at this facility use at least one of these dose optimization techniques: automated exposure control; mA and/or kV adjustment per patient size (includes targeted exams where dose is matched to clinical indication); or iterative reconstruction. Contrast material: ISOVUE 370; Contrast volume: 100 ml; Contrast route: INTRAVENOUS (IV); ?? REPORTING DATA: Count of CT and Cardiac NM exams in prior 12 months: This patient has received 0 known CTs and 0 known cardiac nuclear medicine studies in the 12 months prior to the current study. ?? COMPARISON: CT ANGIO CHEST 05/31/2018 2:13 PM ?? FINDINGS: Pulmonary arteries: No pulmonary embolus in the opacified pulmonary arteries. Aorta: Calcification and ectasia of the thoracic aorta. Lungs: Tracheobronchial calcification. Emphysematous change , interstitial prominence, and asymmetric airspace disease (left greater than right). Pleural spaces: Trace left pleural effusion. Heart: Coronary artery calcification. Lymph nodes: Subcentimeter lymph nodes. Upper abdomen: Questionable wall thickening in the nondistended stomach. Dilatation of the incompletely visualized renal pelves. Bones/joints: Degenerative change. Soft tissues: Unremarkable. ?? IMPRESSION: 1. No pulmonary embolus in the opacified pulmonary arteries. 2. Emphysematous change , interstitial prominence, and asymmetric airspace disease (left greater than right). 3. Additional findings as described above. ? COMMENTS: In the absence of a history or active diagnosis of lung cancer, it is recommended that this patient with emphysema be evaluated for enrollment in a low dose CT lung cancer screening program. ? THIS DOCUMENT HAS BEEN ELECTRONICALLY SIGNED BY JARAD ANDERSON MD on 10/17/2022 11:54 AM ?? Signed By: Jarad Anderson MD Lab Results CBC and Differential?? LATEST RESULTS?? HISTORICAL RESULTS?? WBC?? 10/17/22 10:39?? 19.6 ??High?? 10/14/22?? 7.1?? RBC?? 10/17/22 10:39?? 4.20?? 10/14/22?? 3.93 ??Low?? Hgb?? 10/17/22 10:39?? 13.8?? 10/14/22?? 13.2?? Hct?? 10/17/22 10:39?? 42.7?? 10/14/22?? 39.9?? MCV?? 10/17/22 10:39?? 101.7 ??High?? 10/14/22?? 101.5 ??High?? MCH?? 10/17/22 10:39?? 32.9 ??High?? 10/14/22?? 33.6 ??High?? MCHC?? 10/17/22 10:39?? 32.3?? 10/14/22?? 33.1?? RDW-CV?? 10/17/22 10:39?? 13.4?? 10/14/22?? 13.2?? Platelets?? 10/17/22 10:39?? 254?? 10/14/22?? 189?? MPV?? 10/17/22 10:39?? 8.7?? 10/14/22?? 9.2?? Neutro Auto?? 10/17/22 10:39?? 86.2 ??High? Lymph Auto?? 10/17/22 10:39?? 6.8 ??Low? [place] Auto?? 10/17/22 10:39?? 6.2? Eos, Auto?? 10/17/22 10:39?? 0.10? Basophil Auto?? 10/17/22 10:39?? 0.3? Imm Gran Auto?? 10/17/22 10:39?? 0.4? Neutro Absolute?? 10/17/22 10:39?? 16.9 ??High? Lymph Absolute?? 10/17/22 10:39?? 1.3? [place] Absolute?? 10/17/22 10:39?? 1.2 ??High? Eos Absolute?? 10/17/22 10:39?? 0.0? Baso Absolute?? 10/17/22 10:39?? 0.1? Imm Gran Absolute?? 10/17/22 10:39?? 0.08? RBC Morph?? 10/17/22 10:39?? Abnormal Abnormal?? 10/14/22?? Normal?? Macrocyte?? 10/17/22 10:39?? 1+ Abnormal? Plt Estimation?? 10/17/22 10:39?? Normal?? 10/14/22?? Normal?? Slide Review?? 10/17/22 10:39?? Morph Only?? 10/14/22?? Man Diff? Routine Chemistry?? LATEST RESULTS?? HISTORICAL RESULTS?? Sodium Level?? 10/17/22 10:39?? 133 ??Low?? 10/14/22?? 134?? Potassium Level?? 10/17/22 10:39?? 4.9?? 10/14/22?? 4.5?? Chloride Level?? 10/17/22 10:39?? 92 ??Low?? 10/14/22?? 95 ??Low?? CO2?? 10/17/22 10:39?? 33 ??High?? 10/14/22?? 31?? Alk Phos?? 10/17/22 10:39?? 78?? 10/14/22?? 86?? AST?? 10/17/22 10:39?? 24?? 10/14/22?? 31?? ALT?? 10/17/22 10:39?? 25?? 10/14/22?? 23?? BUN?? 10/17/22 10:39?? 14?? 10/14/22?? 20?? Glucose Level?? 10/17/22 10:39?? 134 ??High?? 10/14/22?? 110 ??High?? Creatinine Level?? 10/17/22 10:39?? 0.52?? 10/14/22?? 0.61?? BUN/Creat Ratio?? 10/17/22 10:39?? 26.9 ??High?? 10/14/22?? 32.8 ??High?? eGFR CKD-EPI?? 10/17/22 10:39?? 103?? 10/14/22?? 99?? Calcium Level?? 10/17/22 10:39?? 9.2?? 10/14/22?? 8.7 ??Low?? Protein Total?? 10/17/22 10:39?? 7.8?? 10/14/22?? 7.6?? Albumin Level?? 10/17/22 10:39?? 4.0?? 10/14/22?? 4.0?? Globulin?? 10/17/22 10:39?? 3.8?? 10/14/22?? 3.6?? A/G Ratio?? 10/17/22 10:39?? 1.1?? 10/14/22?? 1.1?? Bilirubin Total?? 10/17/22 10:39?? 0.6?? 10/14/22?? 0.2?? Anion Gap?? 10/17/22 10:39?? 8.0?? 10/14/22?? 8.0?? Osmolality?? 10/17/22 10:39?? 269 ??Low?? 10/14/22?? 271 ??Low? Electronically Signed on 10/17/22 08:17 PM Kaity Shah MD Emergency department Discharge instructions * Kaity Shah MD: PERFORM Event Display: ED Discharge Information Authored Date: [id number] AMARILYSCONSTANTINO DelcidFernanda Jang :1955 Age:67 years Sex:Female Visit Date:10/17/2022 Discharge Instructions We would like to thank you for allowing us to assist you with your healthcare needs. The following includes patient education materials and information regarding your injury/illness. Diagnosis from Today's Visit COPD exacerbation Parainfluenza virus infection Discharge Vitals Temperature??(Temporal Artery) 97.5 ??F (36.4 ??C) Heart Rate??(Peripheral) 75 Respiratory Rate?? 18 Blood Pressure?? 140/77?? Height?? 60.63 in (154.000 cm) Weight??(Estimated) 102.03 lb (46.27 kg) Allergies tetracycline??(Hives) What to Do Next You Need to Schedule the Following Appointments Follow Up with??primary care physician When:??Within 3 to 5 days You were treated today on an emergency basis; it may be wallace to contact your primary care provider to notify them of your visit today. You may have been referred to your regular doctor or a specialist, please follow up as instructed. If your condition worsens or you can't get in to see the doctor, contact the Emergency Department. Medications What How Much When Why Instructions Next Dose New Durable Medical Equipment for Prescription (nebulizer machine with tubing and mask) See instructions COPD exacerbation Parainfluenza virus infection nebulizer machine with tubing and mask ?? Printed Prescription Changed albuterol (albuterol 1.25 mg/ 3 mL (0.042%) inhalation solution) 3 Milliliters Nebulized inhalation (inhale using nebulizer) 3 times a day COPD exacerbation Parainfluenza virus infection Duration: 30 Days Printed Prescription Changed albuterol (albuterol 90 mcg/ inh aerosol inhaler) 2 Puffs Inhale (breathe in) Every 4 hours as needed for as needed for wheezing Unchanged budesonide-formoterol (Symbicort 80 mcg-4.5 mcg/ inh inhalation aerosol) 2 Puffs Inhale (breathe in) 2 times a day Unchanged lisinopril (lisinopril 20 mg oral tablet) 1 tab Oral (given by mouth) Every day Unchanged phenytoin (phenytoin 100 mg oral capsule, extended release) 2 Capsules Oral (given by mouth) Every day in am... brand name only ?? Unchanged phenytoin (phenytoin 100 mg oral capsule, extended release) 1 Capsules Oral (given by mouth) 2 times a day noon and 1600 .. brand name only ?? Unchanged predniSONE (predniSONE 10 mg oral tablet) See Instruction Oral (given by mouth) Every day 6 tabs daily x3 days, 4 tabs daily x3 days, 2 tabs daily x3 days, 1 tab daily x3 days ?? Education Materials Chronic Obstructive Pulmonary Disease Chronic obstructive pulmonary disease (COPD) is a long-term (chronic) condition that affects the lungs. COPD is a general term that can be used to describe many different lung problems that cause lung inflammation and limit airflow, including chronic bronchitis and emphysema. If you have COPD, your lung function will probably never return to normal. In most cases, it gets worse over time. However, there are steps you can take to slow the progression of the disease and improve your quality of life. What are the causes? This condition may be caused by: ? Smoking. This is the most common cause. ? Certain genes passed down through families. What increases the risk? The following factors may make you more likely to develop this condition: ? Being exposed to secondhand smoke from cigarettes, pipes, or cigars. ? Being exposed to chemicals and other irritants, such as fumes and dust in the work environment. ? Having chronic lung conditions or infections. What are the signs or symptoms? Symptoms of this condition include: ? Shortness of breath, especially during physical activity. ? Chronic cough with a large amount of thick mucus. Sometimes, the cough may not have any mucus (dry cough). ? Wheezing and rapid breathing. ? [place] or bluish discoloration (cyanosis) of the skin, especially in the fingers, toes, or lips. ? Feeling tired (fatigue). ? Weight loss. ? Chest tightness. ? Frequent infections. ? Episodes when breathing symptoms become much worse (exacerbations). At the later stages of this disease, you may have swelling in the ankles, feet, or legs. How is this diagnosed? This condition is diagnosed based on: ? Your medical history. ? A physical exam. You may also have tests, including: ? Lung (pulmonary) function tests. This may include a spirometry test, which measures your ability toexhale properly. ? Chest X-ray. ? CT scan. ? Blood tests. How is this treated? This condition may be treated with: ? Medicines. These may include inhaled rescue medicines to treat acute exacerbations as well as medicines that you take long-term (maintenance medicines) to prevent flare-ups of COPD. ? Bronchodilators help treat COPD by dilating the airways to allow increased airflow and make your breathing more comfortable. ? Steroids can reduce airway inflammation and help prevent exacerbations. ? Smoking cessation. If you smoke, your health care provider may ask you to quit, and may also recommend therapy or replacement products to help you quit. ? Pulmonary rehabilitation. This may involve working with a team of health care providers and specialists, such as respiratory, occupational, and physical therapists. ? Exercise and physical activity. These are beneficial for nearly all people with COPD. ? Nutrition therapy to gain weight, if you are underweight. ? Oxygen. Supplemental oxygen therapy is only helpful if you have a low oxygen level in your blood (hypoxemia). ? Lung surgery or transplant. ? Palliative care. This is to help people with COPD feel comfortable when treatment is no longer working. Follow these instructions at home: Medicines ? Take [id number] and prescription medicines only as told by your health care provider. This includes inhaled medicines and pills. ? Talk to your health care provider before taking any cough or allergy medicines. You may need to avoid certain medicines that dry out your airways. Lifestyle ? If you smoke, the most important thing that you can do is to stop smoking. Continuing to smoke willcause the disease to progress faster. ? Do not use any products that contain nicotine or tobacco. These products include cigarettes, chewing tobacco, and vaping devices, such as e-cigarettes. If you need help quitting, ask your health careprovider. ? Avoid exposure to things that irritate your lungs, such as smoke, chemicals, and fumes. ? Stay active, but balance activity with periods of rest. Exercise and physical activity will help you maintain your ability to do things you want to do. ? Learn and use relaxation techniques to manage stress and to control your breathing. ? Get the right amount of sleep and get quality sleep. Most adults need 7 or more hours per night. ? Eat healthy foods. Eating smaller, more frequent meals and resting before meals may help you maintain your strength. Controlled breathing Learn and use controlled breathing techniques as directed by your health care provider. Controlled breathing techniques include: ? Pursed lip breathing. Start by breathing in (inhaling) through your nose for 1 second. Then, purse your lips as if you were going to whistle and breathe out (exhale) through the pursed lips for 2 seconds. ? Diaphragmatic breathing. Start by putting one hand on your abdomen just above your waist. Inhale slowly through your nose. The hand on your abdomen should move out. Then purse your lips and exhale slowly. You should be able to feel the hand on your abdomen moving in as you exhale. Controlled coughing Learn and use controlled coughing to clear mucus from your lungs. Controlled coughing is a series of short, progressive coughs. The steps of controlled coughing are: 1.?? Lean your head slightly forward. 2.?? Breathe in deeply using diaphragmatic breathing. 3.?? Try to hold your breath for 3 seconds. 4.?? Keep your mouth slightly open while coughing twice. 5.?? Spit any mucus out into a tissue. 6.?? Rest and repeat the steps once or twice as needed. General instructions ? Make sure you receive all the vaccines that your health care provider recommends, especially the pneumococcal and influenza vaccines. Preventing infection and hospitalization is very important when you have COPD. ? Drink enough fluid to keep your urine pale yellow, unless you have a medical condition that requires fluid restriction. ? Use oxygen therapy and pulmonary rehabilitation if told by your health care provider. If you require home oxygen therapy, ask your health care provider whether you should purchase a pulse oximeter tomeasure your oxygen level at home. ? Work with your health care provider to develop a COPD action plan. This will help you know what steps to take if your condition gets worse. ? Keep other chronic health conditions under control as told by your health care provider. ? Avoid extreme temperature and humidity changes. ? Avoid contact with people who have an illness that spreads from person to person (is contagious), such as viral infections or pneumonia. ? Keep all follow-up visits. This is important. Contact a health care provider if: ? You are coughing up more mucus than usual. ? There is a change in the color or thickness of your mucus. ? Your breathing is more labored than usual. ? Your breathing is faster than usual. ? You have difficulty sleeping. ? You need to use your rescue medicines or inhalers more often than expected. ? You have trouble doing routine activities such as getting dressed or walking around the house. Get help right away if: ? You have shortness of breath while you are resting. ? You have shortness of breath that prevents you from: ? Being able to talk. ? Performing your usual physical activities. ? You have chest pain lasting longer than 5 minutes. ? Your skin color is more blue (cyanotic) than usual. ? You measure low oxygen saturations for longer than 5 minutes with a pulse oximeter. ? You have a fever. ? You feel too tired to breathe normally. These symptoms may represent a serious problem that is an emergency. Do not wait to see if the symptoms will go away. Get medical help right away. Call your local emergency services (911 in the [place] Do not drive yourself to the hospital. Summary ? Chronic obstructive pulmonary disease (COPD) is a long-term (chronic) condition that affects the lungs. ? Your lung function will probably never return to normal. In most cases, it gets worse over time. However, there are steps you can take to slow the progression of the disease and improve your quality of life. ? Treatment for COPD may include taking medicines, quitting smoking, pulmonary rehabilitation, and changes to diet and exercise. As the disease progresses, you may need oxygen therapy, a lung transplant, or palliative care. ? To help manage your condition, do not smoke, avoid exposure to things that irritate your lungs, stay up to date on all vaccines, and follow your health care provider's instructions for taking medicines. This information is not intended to replace advice given to you by your health care provider. Make sure you discuss any questions you have with your health care provider. Document Revised: 02/24/2021 Document Reviewed: 02/24/2021 [employer] Patient Education ?? 2021 [employer] Tests Performed Radiology CT Angio Chest 10/17/2022 11:54 EDT Medications and Immunizations Administered Given ipratropium-albuterol 0.5 mg-2.5 mg/3 mL inhalation solution, 3 mL, NEB Lab Test Name Test Result Date/Time WBC 19.6 K/mcL 10/17/2022 10:39 EDT RBC 4.20 Million/mcL 10/17/2022 10:39 EDT Hgb 13.8 g/dL 10/17/2022 10:39 EDT Hct 42.7 % 10/17/2022 10:39 EDT MCV 101.7 fL 10/17/2022 10:39 EDT MCH 32.9 pg 10/17/2022 10:39 EDT MCHC 32.3 g/dL 10/17/2022 10:39 EDT RDW-CV 13.4 % 10/17/2022 10:39 EDT Platelets 254 K/mcL 10/17/2022 10:39 EDT MPV 8.7 fL 10/17/2022 10:39 EDT Neutro Auto 86.2 % 10/17/2022 10:39 EDT Lymph Auto 6.8 % 10/17/2022 10:39 EDT Garfield Auto 6.2 % 10/17/2022 10:39 EDT Eos, Auto 0.10 % 10/17/2022 10:39 EDT Basophil Auto 0.3 % 10/17/2022 10:39 EDT Imm Gran Auto 0.4 % 10/17/2022 10:39 EDT Neutro Absolute 16.9 K/mcL 10/17/2022 10:39 EDT Lymph Absolute 1.3 K/mcL 10/17/2022 10:39 EDT [place]field Absolute 1.2 K/mcL 10/17/2022 10:39 EDT Eos Absolute 0.0 K/mcL 10/17/2022 10:39 EDT Baso Absolute 0.1 K/mcL 10/17/2022 10:39 EDT Imm Gran Absolute 0.08 10/17/2022 10:39 EDT RBC Morph Abnormal 10/17/2022 10:39 EDT Macrocyte 1+ 10/17/2022 10:39 EDT Plt Estimation Normal 10/17/2022 10:39 EDT Slide Review Morph Only 10/17/2022 10:39 EDT Sodium Level 133 mmol/L 10/17/2022 10:39 EDT Potassium Level 4.9 mmol/L 10/17/2022 10:39 EDT Chloride Level 92 mmol/L 10/17/2022 10:39 EDT CO2 33 mmol/L 10/17/2022 10:39 EDT Alk Phos 78 IntlUnit/L 10/17/2022 10:39 EDT AST 24 IntlUnit/L 10/17/2022 10:39 EDT ALT 25 IntlUnit/L 10/17/2022 10:39 EDT BUN 14 mg/dL 10/17/2022 10:39 EDT Glucose Level 134 mg/dL 10/17/2022 10:39 EDT Creatinine Level 0.52 mg/dL 10/17/2022 10:39 EDT BUN/Creat Ratio 26.9 10/17/2022 10:39 EDT Calcium Level 9.2 mg/dL 10/17/2022 10:39 EDT Protein Total 7.8 g/dL 10/17/2022 10:39 EDT Albumin Level 4.0 g/dL 10/17/2022 10:39 EDT Globulin 3.8 10/17/2022 10:39 EDT A/G Ratio 1.1 10/17/2022 10:39 EDT Bilirubin Total 0.6 mg/dL 10/17/2022 10:39 EDT Anion Gap 8.0 10/17/2022 10:39 EDT Osmolality 269 mOsm/kg 10/17/2022 10:39 EDT eGFR CKD-EPI 103 mL/min/1.73 m2 10/17/2022 10:39 EDT Patient/Automotive Internet Sales Consultant Signature Patient Name:IRASEMA PANDA I have received this information and my questions have been answered. Patient/Automotive Internet Sales Consultant Name: Patient/Automotive Internet Sales Consultant Signature: Relationship to Patient: Witness Name/Signature: Date: Electronically Signed on: 10/17/2022 13:25 EDTSigned by:AF CTA Chest vessels W contrast IV * Jarad Anderson MD: VERIFY, VERIFY Event Display: Report PROCEDURE INFORMATION: Exam: CTA Chest With Contrast Exam date and time: 10/17/2022 10:52 AM Age: 67 years old Clinical indication: Shortness of breath; Additional info: R/O pe TECHNIQUE: Imaging protocol: Computed tomographic angiography of the chest with contrast. Exam focused on the arteries. 3D rendering (Not supervised by radiologist): MIP and/or 3D reconstructed images were created by the technologist. Radiation optimization: All CT scans at this facility use at least one of these dose optimization techniques: automated exposure control; mA and/or kV adjustment per patient size (includes targeted exams where dose is matched to clinical indication); or iterative reconstruction. Contrast material: ISOVUE 370; Contrast volume: 100 ml; Contrast route: INTRAVENOUS (IV); REPORTING DATA: Count of CT and Cardiac NM exams in prior 12 months: This patient has received 0 known CTs and 0 known cardiac nuclear medicine studies in the 12 months prior to the current study. COMPARISON: CT ANGIO CHEST 05/31/2018 2:13 PM FINDINGS: Pulmonary arteries: No pulmonary embolus in the opacified pulmonary arteries. Aorta: Calcification and ectasia of the thoracic aorta. Lungs: Tracheobronchial calcification. Emphysematous change , interstitial prominence, and asymmetric airspace disease (left greater than right). Pleural spaces: Trace left pleural effusion. Heart: Coronary artery calcification. Lymph nodes: Subcentimeter lymph nodes. Upper abdomen: Questionable wall thickening in the nondistended stomach. Dilatation of the incompletely visualized renal pelves. Bones/joints: Degenerative change. Soft tissues: Unremarkable. IMPRESSION: 1. No pulmonary embolus in the opacified pulmonary arteries. 2. Emphysematous change , interstitial prominence, and asymmetric airspace disease (left greater than right). 3. Additional findings as described above. COMMENTS: In the absence of a history or active diagnosis of lung cancer, it is recommended that this patient with emphysema be evaluated for enrollment in a low dose CT lung cancer screening program. THIS DOCUMENT HAS BEEN ELECTRONICALLY SIGNED BY JARAD ANDERSON MD on 10/17/2022 11:54 AM Final Signed by: Jarad Anderson MD Signed (Electronic Signature): 10/17/2022 11:54 am Patient Care team information Care Team Personnel Name: Kaity Shah MD Position: Physician Member Role: Attending Physician Address: Address: [address] [place] [address] Name: Marija Cordova RN Position: Perioperative - Nurse Member Role: ED Nurse Care Team Related Persons Name: ROSEANN PANDA
--- OUTSIDE RECORDS SUMMARY | 2022-11-19 02:25 | XMS_ITS | Continuity of Care Document ---
Author Name Unknown Organization [facility] Address [address] [place] [address] Encounter LTTL_TX FIN NBR [id number] Date(s): 10/14/22 - 10/16/22 [facility] [address] [place], [place] [address] Encounter Diagnosis Viral respiratory infection(Discharge Diagnosis) - 10/14/22 COPD exacerbation(Discharge Diagnosis) - 10/14/22 Discharge Disposition: Home f/u External Provider Attending Physician: Jesse Bhardwaj MD Admitting Physician: Jesse Bhardwaj MD Allergies, Adverse Reactions, Alerts Substance Reaction Severity Status tetracycline Hives Mild Active Assessment and Plan Extracted from: Title:Clinical Document Author:Conchita STONE, And re F Date:10/14/22 Patient originally seen by Louis Shah. Lab work is unrevealing as is x-ray. Respiratory panel shows parainfluenza virus. Despite nebulizers and Solu-Medrol her O2 saturation is only around 84-86 while walking. Patient did not feel comfortable and could not feel short of breath. I spoke with the hospitalist patient was admitted for dyspnea and respiratory infection probable COPD exacerbation Functional Status 10/16/22 Current Home Treatments Oxygen therapy Home Equipment Oxygen 10/16/22 Activity Status ADL Ambulating in room 10/15/22 Personal Care Provided Other: hs care of fered, pt declined 10/14/22 Dinner Percent 75 10/14/22 Living Environment No Living Environmen t Information Available Lives In [facility] home 10/14/22 Family Member Travel History No recent t ravel Recent Travel History No recent travel Other exposure to Infectious Disease COV ID-19 Symptoms Present 10/14/22 ADLs Independent Medications albuterol 90 mcg/inh aerosol inhaler 2 puffs, [...] days, # 39 tab, 0 Refill(s), Pharmacy: [facility], 154.94, cm, 10/14/22 7:10:00 EDT, Height/Length Dosing, 46.27, kg, 10/14/22 7:10:00... Start Date: 10/14/22 Status: Ordered Symbicort 80 mcg-4.5 mcg/inh inhalation aerosol 2 puffs, Inhale, BID, # 10.2 g, 0 Refill(s) Start Date: 10/14/22 Status: Ordered Mental Status 10/15/22 Eye Opening Response [place] Spontaneous ly Best Verbal Response [place] Oriented Best Motor Response Will Obeys comman ds [place] Coma Score 15 Problem List Condition Confirmation Course Effective Dates Status Health St atus Informant COPD exacerbation Confirmed Active Results Laboratory List Name Date .Manual Differential (LTTL) 10/14/22 CBC w/ Diff 10/14/22 Comprehensive Metabolic Panel (CMP) 10/14 Respiratory Panel 2.1 (BioFire) 10/14/22 Troponin-I 10/14/22 Most recent to oldest [Reference Range]: 1 WBC [4.8-10.8 K/mcL] 7.1 K/mcL (10/14/22 8:00 AM) RBC [4.20-5.40 Million/mcL] 3.93 Million /mcL *LOW* (10/14/22 8:00 AM) Segs Man 68 *NA* (10/14/22 8:00 AM) Lymph Man [20.5-51.1 %] 29.0 % (10/14/22 8:00 AM) [place] Man [1.7-9.3 %] 3.0 % (10/14/22 8:00 AM) Eos Man [0.00-3.00 %] 0.00 % (10/14/22 8:00 AM) BUN [8-26 mg/dL] 20 mg/dL (10/14/22 8:00 AM) Glucose Level [74-106 mg/dL] 110 mg/dL *HI* (10/14/22 8:00 AM) Potassium Level [3.5-5.1 mmol/L] 4.5 mmo l/L (10/14/22 8:00 AM) MCV [81.0-99.0 fL] 101.5 fL *HI* (10/14/22 8:00 AM) RBC Morph [Normal] Normal (10/14/22 8:00 AM) AST [15-41 IntlUnit/L] 31 IntlUnit/L (10/14/22 8:00 AM) ALT [14-54 IntlUnit/L] 23 IntlUnit/L (10/14/22 8:00 AM) MCHC [32.0-36.0 g/dL] 33.1 g/dL (10/14/22 8:00 AM) Osmolality [275-295 mOsm/kg] 271 mOsm/kg *LOW* (10/14/22 8:00 AM) Troponin-I [<=0.05 ng/mL] 0.01 ng/mL (10/14/22 8:00 AM) Sodium Level [134-143 mmol/L] 134 mmol/L (10/14/22 8:00 AM) Hct [37.0-47.0 %] 39.9 % (10/14/22 8:00 AM) Calcium Level [8.9-10.3 mg/dL] 8.7 mg/dL *LOW* (10/14/22 8:00 AM) Albumin Level [3.5-5.0 g/dL] 4.0 g/dL (10/14/22 8:00 AM) Protein Total [6.5-8.1 g/dL] 7.6 g/dL (10/14/22 8:00 AM) MCH [27.0-31.0 pg] 33.6 pg *HI* (10/14/22 8:00 AM) Bilirubin Total [0.2-1.2 mg/dL] 0.2 mg/d L (10/14/22 8:00 AM) Hgb [12.0-16.0 g/dL] 13.2 g/dL (10/14/22 8:00 AM) Alk Phos [38-130 IntlUnit/L] 86 IntlUnit /L (10/14/22 8:00 AM) MPV [7.4-10.4 fL] 9.2 fL (10/14/22 8:00 AM) Band Man 0 % *NA* (10/14/22 8:00 AM) Platelets [130-400 K/mcL] 189 K/mcL (10/14/22 8:00 AM) CO2 [22-32 mmol/L] 31 mmol/L (10/14/22 8:00 AM) Chloride Level [98-111 mmol/L] 95 mmol/L *LOW* (10/14/22 8:00 AM) RDW-CV [11.5-14.5 %] 13.2 % (10/14/22 8:00 AM) Adenovirus RespP-BFire [Not Detected] No t Detected (10/14/22 8:00 AM) Bordetella parapertussis RespP-BFire [No t Detected] Not Detected (10/14/22 8:00 AM) Bordetella pertussis RespP-BFire [Not De tected] Not Detected (10/14/22 8:00 AM) Chlamydophila pneumoniae RespP-BFire [No t Detected] Not Detected (10/14/22 8:00 AM) Coronavirus 229E (Not COVID-19) RP-BFire [Not Detected] Not Detected (10/14/22 8:00 AM) Coronavirus HKU1 (Not COVID-19) RP-BFire [Not Detected] Not Detected (10/14/22 8:00 AM) Coronavirus NL63 (Not COVID-19) RP-BFire [Not Detected] Not Detected (10/14/22 8:00 AM) Coronavirus OC43 (Not COVID-19) RP-BFire [Not Detected] Not Detected (10/14/22 8:00 AM) Human Metapneumonovirus RespP-BFire [Not Detected] Not Detected (10/14/22 8:00 AM) Human Rhinovirus/Enterovirus RespP-BFir [Not Detected] Not Detected (10/14/22 8:00 AM) Influenza A RespP-BFire [Not Detected] N ot Detected (10/14/22 8:00 AM) Influenza B RespP-BFire [Not Detected] N ot Detected (10/14/22 8:00 AM) Mycomplasma pneumoniae RespP-BFire [Not Detected] Not Detected (10/14/22 8:00 AM) Parainfluenza Virus 1 RespP-BFire [Not D etected] Not Detected (10/14/22 8:00 AM) Parainfluenza Virus 2 RespP-BFire [Not D etected] Detected *ABN* (10/14/22 8:00 AM) Parainfluenza Virus 3 RespP-BFire [Not D etected] Not Detected (10/14/22 8:00 AM) Parainfluenza Virus 4 RespP-BFire [Not D etected] Not Detected (10/14/22 8:00 AM) Respiratory Syncytial Virus RespP-BFire [Not Detected] Not Detected (10/14/22 8:00 AM) A/G Ratio 1.1 *NA* (10/14/22 8:00 AM) BUN/Creat Ratio [8.0-20.0] 32.8 *HI* (10/14/22 8:00 AM) Globulin 3.6 *NA* (10/14/22 8:00 AM) Slide Review Man Diff (10/14/22 8:00 AM) Plt Large Few *ABN* (10/14/22 8:00 AM) Abs Baso Man [0.0-0.2 K/mcL] 0.0 K/mcL (10/14/22 8:00 AM) Abs Eos Man [0.0-0.2 K/mcL] 0.0 K/mcL (10/14/22 8:00 AM) Abs Lymph Man [1.2-3.4 K/mcL] 2.1 K/mcL (10/14/22 8:00 AM) Abs [place] Man [0.1-0.6 K/mcL] 0.2 K/mcL (10/14/22 8:00 AM) Abs Neut Man [1.4-6.5 K/mcL] 4.8 K/mcL (10/14/22 8:00 AM) Creatinine Level [0.44-1.00 mg/dL] 0.61 mg/dL (10/14/22 8:00 AM) SARS-CoV-2 (COVID-19) RP-BFire [Not Dete cted] Not Detected (10/14/22 8:00 AM) Plt Estimation Normal (10/14/22 8:00 AM) 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 Yes *NA* (10/14/22 8:00 AM) Date of onset (Lab) 10/07/2022 *NA* (10/14/22 8:00 AM) Hospitalized due to COVID-19? Unknown *NA* (10/14/22 8:00 AM) In ICU? Unknown *NA* (10/14/22 8:00 AM) Group care resident? Unknown *NA* (10/14/22 8:00 AM) status? Not *NA* (10/14/22 8:00 AM) Anion Gap [3.0-12.0] 8.0 (10/14/22 8:00 AM) Baso Man [0.0-0.8 %] 0.0 % (10/14/22 8:00 AM) eGFR CKD-EPI [>=60 mL/min/1.73 m2] 99 mL /min/1.73 m2 (10/14/22 8:00 AM) Radiology Reports * Exam Date Time Procedure Performing Provider Status 10/14/22 7:53 AM XR Chest 1 View Francy Hurd; Franca th (Verified) Notes: (XR Chest 1 View) Reason For Exam: sob cough XR Chest 1 View PROCEDURE INFORMATION: Exam: XR Chest Exam date and time: 10/14/2022 7:46 AM Age: 67 years old Clinical indication: Shortness of breath; cough TECHNIQUE: Imaging protocol: Radiologic exam of the chest. Views: 1 view. COMPARISON: CR XR CHEST, 2 VIEWS 05/31/2018 11:48 AM FINDINGS: Lungs: No pulmonary vascular congestion, pulmonary edema or pneumonia. Pleural spaces: No pleural effusion or pneumothorax. Heart/Mediastinum: The cardiac silhouette is not enlarged. The mediastinal contours are normal. Vasculature: The aorta is atherosclerotic. Bones/joints: No acute osseous abnormality. Soft tissues: Skin folds project over both mark thoraces, more so on the right. IMPRESSION: No acute finding. THIS DOCUMENT HAS BEEN ELECTRONICALLY SIGNED BY DEJUAN MOON MD on 10/14/2022 09:30 AM Final Signed by: Dejuan Moon MD Signed (Electronic Signature): 10/14/2022 9:30 am Vital Signs Most recent to oldest [Reference Range]: 1 2 3 Temperature Temporal Artery [36-38 Deg C] 36.2 Deg C (10/16/22 7:20 AM) 36.8 Deg C (10/15/22 7:32 PM) 36.8 Deg C (10/15/22 7:06 AM) Temperature Temporal Artery (DegF) [97.3-100 Deg F] 97.16 Deg F *LOW* (10/16/22 7:20 AM) 98.24 Deg F (10/15/22 7:06 AM) 99.86 Deg F (10/14/22 4:30 PM) Peripheral Pulse Rate [60-100 bpm] 74 bpm (10/16/22 7:20 AM) 87 bpm (10/15/22 7:32 PM) 71 bpm (10/15/22 7:06 AM) Respiratory Rate [12-24 br/min] 18 br/min (10/16/22 7:20 AM) 20 br/min (10/15/22 7:32 PM) 22 br/min (10/15/22 7:06 AM) Blood Pressure [90-140/60-90 mmHg] 142/77mmHg *HI* (10/16/22 7:20 AM) 118/70mmHg (10/15/22 7:32 PM) 134/68mmHg (10/15/22 7:06 AM) Mean Arterial Pressure, Cuff [65-140 mmHg] 99 mmHg (10/16/22 7:20 AM) 86 mmHg (10/15/22 7:32 PM) 90 mmHg (10/15/22 7:06 AM) Mean Arterial Pressure Cuff 81 mmHg (10/14/22 10:39 AM) 108 mmHg (10/14/22 10:15 AM) 101 mmHg (10/14/22 7:45 AM) Blood Pressure Location Right arm (10/15/22 7:32 PM) Right arm (10/14/22 7:03 PM) Blood Pressure Method Automatic (10/15/22 7:32 PM) Automatic (10/14/22 7:03 PM) Weight 46.270 kg (10/14/22 4:13 PM) Weight Dosing 46.270 kg (10/14/22 4:13 PM) 46.27 kg (10/14/22 7:10 AM) Weight Estimated 46.27 kg (10/14/22 6:51 AM) Height 154.940 cm (10/14/22 4:13 PM) Height/Length Dosing 154.940 cm (10/14/22 4:13 PM) 154.940 cm (10/14/22 7:10 AM) Body Mass Index 19.270 kg/m2 (10/14/22 4:13 PM) Height/Length Estimated 154.940 cm (10/14/22 6:51 AM) Social History Social History Type Response Tobacco Former tobacco user Tobacco Use:. Sex Hospital Discharge Instructions Patient Education 10/16/2022 09:18:14 Viral Respiratory Infection Viral Respiratory Infection A respiratory infection is an illness that affects part of the respiratory system, such as the lungs, nose, or throat. A respiratory infection that is caused by a virus is called a viral respiratory infection. Common types of viral respiratory infections include: ??? A cold. ??? The flu (influenza). ??? A respiratory syncytial virus (RSV) infection. What are the causes? This condition is caused by a virus. The virus may spread through contact with droplets or direct contact with infected people or their mucus or secretions. The virus may spread from person to person(is contagious). What are the signs or symptoms? Symptoms of this condition include: ??? A stuffy or runny nose. ??? A sore throat or cough. ??? Shortness of breath or difficulty breathing. ??? Yellow or green mucus (sputum). Other symptoms may include: ??? A fever. ??? Sweating or chills. ??? Fatigue. ??? Achy muscles. ??? A headache. How is this diagnosed? This condition may be diagnosed based on: ??? Your symptoms. ??? A physical exam. ??? Testing of secretions from the nose or throat. ??? Chest X-ray. How is this treated? This condition may be treated with medicines, such as: ??? Antiviral medicine. This may shorten the length of time a person has symptoms. ??? Expectorants. These make it easier to cough up mucus. ??? Decongestant nasal sprays. ??? Acetaminophen or NSAIDs, such as ibuprofen, to relieve fever and pain. Antibiotic medicines are not prescribed for viral infections.This is because antibiotics are designed to kill bacteria. They do not kill viruses. Follow these instructions at home: Managing pain and congestion ??? Take vuzp-foq-dcssopl and prescription medicines only as told by your health care provider. ??? If you have a sore throat, gargle with a mixture of salt and water 3???4 times a day or as needed. To make salt water, completely dissolve ?1 tsp (3???6 g) of salt in 1 cup (237 mL) of warm water. ??? Use nose drops made from salt water to ease congestion and soften raw skin around your nose. ??? Take 2 tsp (10 mL) of honey at bedtime to lessen coughing at night. ??? Do not give honey to children who are younger than 1 year. ??? Drink enough fluid to keep your urine pale yellow. This helps prevent dehydration and helps loosen up mucus. General instructions ??? Rest as much as possible. ??? Do not drink alcohol. ??? Do not use any products that contain nicotine or tobacco. These products include cigarettes, chewing tobacco, and vaping devices, such as e-cigarettes. If you need help quitting, ask your health care provider. ??? Keep all follow-up visits. This is important. How is this prevented? Get an annual flu shot. You may get the flu shot in late summer, fall, or winter. Ask your health care provider when you should get your flu shot. ??? Avoid spreading your infection to other people. If you are sick: ??? Wash your hands with soap and water often, especially after you cough or sneeze. Wash for at least 20 seconds. If soap and water are not available, use alcohol-based hand water chemist. ??? Cover your mouth when you cough. Cover your nose and mouth when you sneeze. ??? Do not share cups or eating utensils. ??? Clean commonly used objects often. Clean commonly touched surfaces. ??? Stay home from work or school as told by your health care provider. ??? Avoid contact with people who are sick during cold and flu season. This is generally fall and winter. Contact a health care provider if: ??? Your symptoms last for 10 days or longer. ??? Your symptoms get worse over time. ??? You have severe sinus pain in your face or forehead. ??? The glands in your jaw or neck become very swollen. ??? You have shortness of breath. Get help right away if you: ??? Feel pain or pressure in your chest. ??? Have trouble breathing. ??? Faint or feel like you will faint. ??? Have severe and persistent vomiting. ??? Feel confused or disoriented. These symptoms may represent a serious problem that is an emergency. Do not wait to see if the symptoms will go away. Get medical help right away. Call your local emergency services (911 in the [place] Do not drive yourself to the hospital. Summary ??? A respiratory infection is an illness that affects part of the respiratory system, such as the lungs, nose, or throat. A respiratory infection that is caused by a virus is called a viral respiratory infection. ??? Common types of viral respiratory infections include a cold, influenza, and respiratory syncytial virus (RSV) infection. ??? Symptoms of this condition include a stuffy or runny nose, cough, fatigue, achy muscles, sore throat, and fevers or chills. ??? Antibiotic medicines are not prescribed for viral infections. This is because antibiotics are designed to kill bacteria. They are not effective against viruses. This information is not intended to replace advice given to you by your health care provider. Make sure you discuss any questions you have with your health care provider. Document Revised: 07/23/2021 Document Reviewed: 07/23/2021 [employer] Patient Education ?? 2021 [employer]. Follow Up Care 10/14/2022 06:51:25 With:Follow up with primary care provider Address:Unknown When:1 month Pharmacology Note * Mark Camacho: PERFORM Event Display: Pharmacy Note Authored Date: [id number] med hx via SS and pt interview. pt reports just prescribed symbicort and albuterol on for COPD. pt reports caused GI intolerance so not taking. pt also taking brand name phenytoin which they brought in for use. Discharge instructions * Dinora Dicksno: PERFORM Event Display: Discharge Instructions Authored Date: [id number] IRASEMA PANDA Suhail :1955 Age:67 years Sex:Female Visit Date:10/14/2022 Hospital Discharge Instructions We would like to thank you for allowing us to assist you with your healthcare needs. The following includes patient education materials and information regarding your injury/illness. Your Next Steps Instructions From Your Care Team You can check your pulse oximeter from time to time and if you are sustaining above 88% while walking then you no longer need the oxygen Follow Up Appointments Follow Up with??Follow up with primary care provider When:??Within 1 month Medications What How Much When Instructions Next Dose Unchanged albuterol (albuterol 90 mcg/ inh aerosol inhaler) [...] days, 1 tab daily x3 days ?? Pickup at [facility] Pharmacy Information [facility]: [address] [facility] [place], [place] [id number] [phone] Your Summary Your Care Team Admitting Physician - Jesse Bhardwaj MD Attending Physician - Jesse Bhardwaj MD Your Diagnosis Viral respiratory infection COPD exacerbation Problems Ongoing - Any problem that you are currently receiving treatment for. COPD exacerbation Tests Performed/Pending .Manual Differential (LTTL) CBC w/ Diff CMP Respiratory Panel 2.1 (Bio[facility]) Troponin-I XR Chest 1 View Discharge Vitals Temperature??(Temporal Artery) 97.2 ??F (36.2 ??C) Heart Rate??(Peripheral) 74 Respiratory Rate?? 18 Blood Pressure?? 142/77?? Allergies tetracycline??(Hives) Education Materials Viral Respiratory Infection A respiratory infection is an illness that affects part of the respiratory system, such as the lungs, nose, or throat. A respiratory infection that is caused by a virus is called a viral respiratory infection. Common types of viral respiratory infections include: ? A cold. ? The flu (influenza). ? A respiratory syncytial virus (RSV) infection. What are the causes? This condition is caused by a virus. The virus may spread through contact with droplets or direct contact with infected people or their mucus or secretions. The virus may spread from person to person(is contagious). What are the signs or symptoms? Symptoms of this condition include: ? A stuffy or runny nose. ? A sore throat or cough. ? Shortness of breath or difficulty breathing. ? Yellow or green mucus (sputum). Other symptoms may include: ? A fever. ? Sweating or chills. ? Fatigue. ? Achy muscles. ? A headache. How is this diagnosed? This condition may be diagnosed based on: ? Your symptoms. ? A physical exam. ? Testing of secretions from the nose or throat. ? Chest X-ray. How is this treated? This condition may be treated with medicines, such as: ? Antiviral medicine. This may shorten the length of time a person has symptoms. ? Expectorants. These make it easier to cough up mucus. ? Decongestant nasal sprays. ? Acetaminophen or NSAIDs, such as ibuprofen, to relieve fever and pain. Antibiotic medicines are not prescribed for viral infections.This is because antibiotics are designed to kill bacteria. They do not kill viruses. Follow these instructions at home: Managing pain and congestion ? Take ztjn-ocp-tgvdblg and prescription medicines only as told by your health care provider. ? If you have a sore throat, gargle with a mixture of salt and water 3???4 times a day or as needed. To make salt water, completely dissolve ?1 tsp (3???6 g) of salt in 1 cup (237 mL) of warm water. ? Use nose drops made from salt water to ease congestion and soften raw skin around your nose. ? Take 2 tsp (10 mL) of honey at bedtime to lessen coughing at night. ? Do not give honey to children who are younger than 1 year. ? Drink enough fluid to keep your urine pale yellow. This helps prevent dehydration and helps loosen up mucus. General instructions ? Rest as much as possible. ? Do not drink alcohol. ? Do not use any products that contain nicotine or tobacco. These products include cigarettes, chewing tobacco, and vaping devices, such as e-cigarettes. If you need help quitting, ask your health careprovider. ? Keep all follow-up visits. This is important. How is this prevented? Get an annual flu shot. You may get the flu shot in late summer, fall, or winter. Ask your health care provider when you should get your flu shot. ? Avoid spreading your infection to other people. If you are sick: ? Wash your hands with soap and water often, especially after you cough or sneeze. Wash for at least 20 seconds. If soap and water are not available, use alcohol- based hand water chemist. ? Cover your mouth when you cough. Cover your nose and mouth when you sneeze. ? Do not share cups or eating utensils. ? Clean commonly used objects often. Clean commonly touched surfaces. ? Stay home from work or school as told by your health care provider. ? Avoid contact with people who are sick during cold and flu season. This is generally fall and winter. Contact a health care provider if: ? Your symptoms last for 10 days or longer. ? Your symptoms get worse over time. ? You have severe sinus pain in your face or forehead. ? The glands in your jaw or neck become very swollen. ? You have shortness of breath. Get help right away if you: ? Feel pain or pressure in your chest. ? Have trouble breathing. ? Faint or feel like you will faint. ? Have severe and persistent vomiting. ? Feel confused or disoriented. These symptoms may represent a serious problem that is an emergency. Do not wait to see if the symptoms will go away. Get medical help right away. Call your local emergency services (911 in the [place] Do not drive yourself to the hospital. Summary ? A respiratory infection is an illness that affects part of the respiratory system, such as the lungs, nose, or throat. A respiratory infection that is caused by a virus is called a viral respiratory infection. ? Common types of viral respiratory infections include a cold, influenza, and respiratory syncytial virus (RSV) infection. ? Symptoms of this condition include a stuffy or runny nose, cough, fatigue, achy muscles, sore throat, and fevers or chills. ? Antibiotic medicines are not prescribed for viral infections. This is because antibiotics are designed to kill bacteria. They are not effective against viruses. This information is not intended to replace advice given to you by your health care provider. Make sure you discuss any questions you have with your health care provider. Document Revised: 07/23/2021 Document Reviewed: 07/23/2021 [employer] Patient Education ?? 2021 [employer]. Patient Name:IRASEMA PANDA Suhail I have received this information and my questions have been answered. Patient/Server Support Technician Name: Patient/Server Support Technician Signature: Relationship to Patient: Witness Name/Signature: Date: Electronically Signed on: 10/16/2022 10:25 EDTSigned by:MONIK Physician Emergency department Note * Kar Arango MD: PERFORM Event Display: ED Note Physician Authored Date: [id number] Patient originally seen by Dr. Shah. Lab work is unrevealing as is x-ray. Respiratory panel shows parainfluenza virus. Despite nebulizers and Solu-Medrol her O2 saturation is only around 84-86 while walking. Patient did not feel comfortable and could not feel short of breath. I spoke with the hospitalist patient was admitted for dyspnea and respiratory infection probable COPD exacerbation Electronically Signed on 10/14/22 02:29 PM Kar Arango MD * Kaity Shah MD: PERFORM Event Display: ED Note Physician Authored Date: [id number] IRASEMA PANDA :1955 Age:67 years Sex:Female Visit Date:10/14/2022 Basic Information Time Seen: Kaity Shah MD / 10/14/2022 07:33 Chief Complaint Patient reports shortness of breath x 1 week. Patient's SpO2 was 82% on arrival, 94% on 1 LPM via NC. History Of Present Illness: This patient is a 67-year-old female with a history of lung??time smoking history??who quit approximately 1 month ago and presents today for shortness of breath.?? The patient states that??last week she was seen at the urgent care because she had increased cough and shortness of breath and was given 2 different inhalers, steroids and antibiotics without any significant improvement.?? She presentstoday still very short of breath??with a nonproductive cough. ??She has not had any fever or chest??pain.?? No lower extremity swelling.?? 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 She was found to be hypoxic on arrival in the mid 80s and required oxygen. Review of Systems: CONSTITUTIONAL:??No fevers or chills. EYES:??No change in vision. ENT:??No sore throat. ??No headache. ??No neck pain. CARDIOVASCULAR:??No chest pain, palpitations or passing out episodes. RESPIRATORY:??+cough, + shortness of breath no hemoptysis. GI:??No abdominal pain. No nausea, vomiting or diarrhea. :??No change in urination. SKIN:??No rash. NEUROLOGIC:??No numbness or weakness. MUSCULOSKELETAL:??No swelling or pain. PSYCHIATRIC:??No depression. LYMPH:??No swelling. Review of systems otherwise as stated in HPI Physical Exam Vitals & Measurements T:??36.5?C ??(Temporal Artery)?? HR:??69??(Peripheral)?? RR:??16?? BP:??129/88?? SpO2:??94%?? HT:??154.940??cm?? WT:??46.27??kg??(Estimated)?? O2 Flow Rate:??1?? O2 Therapy:??Room air?? General: ??AAOx3. ??GCS15. ??No acute distress, answering questions appropriately. Head: ??Atraumatic; Normocephalic Eye: ??PERRLA; EOMI; no scleral icterus / pallor ENT: moist mucous membranes; no epistaxis. No stridor. Neck: ??Active ROM intact; Trachea Midline. ??No JVD. ??No meningismus appreciated. Skin: Warm, dry Chest:??Posteriorly at the??lungs have poor air movement. ??Anteriorly there is wheezing bilaterally.?? The patient??does not have any increased work of breathing. ??She does have a very coarse dry cough. Heart: RRR; no murmur, rub, or gallop Abdomen: ??Soft, non-tender, non-distended, no guarding, rebound, or rigidity. No Hepatosplenomegaly Musculoskeletal: ??ROM intact of all extremities/joints without discomfort. ??Sensation grossly intact throughout. ??No obvious deformity. ??Strength Intact 5/5 throughout. ?? Neuro: Alert and oriented. Answering questions appropriately with clear speech. Motor and sensory grossly normal in all extremities.?? Medical Decision Making: This patient??is a 67-year-old female with a longstanding history of??smoking??and emphysema seen on prior scans who presents today for evaluation of shortness of breath. ??She has had??approximately1 week of increased shortness of breath and nonproductive cough.?? Initial arrival home O2 saturatio n was??82%??and she initially required oxygen.?? She was eventually weaned off of the oxygen but does have a waxing and waning oxygen saturation based on her??coughing.?? The??patient had lab work which included Normal CBC and CMP.?? Negative troponin.?? EKG showed a sinus rhythm with a rate of [address] segment elevation.?? Patient is awaiting a respiratory panel to be followed up by . Procedure No Qualifying Data Assessment/Plan Ordered: albuterol, 2.5 mg = 3 mL, NEB, Soln, Once, PRN shortness of breath, First Dose: 10/14/22 7:40:00 EDT, Physician Stop Respiratory Panel 2.1 ([facility]), Nasopharyngeal Swab, Stat Collect, 10/14/22 7:33:00 EDT, Once, Nurse collect, Print Label, Unknown, Yes, 10/07/22, Unknown, Unknown, Unknown, Not XR Chest 1 View, 10/14/22 7:33:00 EDT, Stat, Reason: sob cough, Transport Mode: Portable Medication Reconciliation Unchanged lisinopril (lisinopril 20 mg oral tablet)1 tab Oral (given by mouth) every day. ?? phenytoin (Dilantin)100 Milligrams Oral (given by mouth) 4 times a day. Problem List/Past Medical History Ongoing No qualifying data Historical No qualifying data Medication Administration Given ipratropium-albuterol 0.5 mg-2.5 mg/3 mL inhalation solution, 3 mL, NEB Allergies tetracycline??(Hives) Social History Electronic Cigarette/Vaping Electronic Cigarette Use: Never. Tobacco Former tobacco user Tobacco Use:. Lab Results CBC and Differential?? LATEST RESULTS?? WBC?? 10/14/22 08:00?? 7.1?? RBC?? 10/14/22 08:00?? 3.93 ??Low?? Hgb?? 10/14/22 08:00?? 13.2?? Hct?? 10/14/22 08:00?? 39.9?? MCV?? 10/14/22 08:00?? 101.5 ??High?? MCH?? 10/14/22 08:00?? 33.6 ??High?? MCHC?? 10/14/22 08:00?? 33.1?? RDW-CV?? 10/14/22 08:00?? 13.2?? Platelets?? 10/14/22 08:00?? 189?? MPV?? 10/14/22 08:00?? 9.2?? Segs Man?? 10/14/22 08:00?? 68?? Lymph Man?? 10/14/22 08:00?? 29.0?? [place] Man?? 10/14/22 08:00?? 3.0?? Eos Man?? 10/14/22 08:00?? 0.00?? Baso Man?? 10/14/22 08:00?? 0.0?? Band Man?? 10/14/22 08:00?? 0?? Abs Neut Man?? 10/14/22 08:00?? 4.8?? Abs Lymph Man?? 10/14/22 08:00?? 2.1?? Abs [place] Man?? 10/14/22 08:00?? 0.2?? Abs Eos Man?? 10/14/22 08:00?? 0.0?? Abs Baso Man?? 10/14/22 08:00?? 0.0?? RBC Morph?? 10/14/22 08:00?? Normal?? Plt Estimation?? 10/14/22 08:00?? Normal?? Plt Large?? 10/14/22 08:00?? Few Abnormal?? Slide Review?? 10/14/22 08:00?? Man Diff? Routine Chemistry?? LATEST RESULTS?? Sodium Level?? 10/14/22 08:00?? 134?? Potassium Level?? 10/14/22 08:00?? 4.5?? Chloride Level?? 10/14/22 08:00?? 95 ??Low?? CO2?? 10/14/22 08:00?? 31?? Alk Phos?? 10/14/22 08:00?? 86?? AST?? 10/14/22 08:00?? 31?? ALT?? 10/14/22 08:00?? 23?? BUN?? 10/14/22 08:00?? 20?? Glucose Level?? 10/14/22 08:00?? 110 ??High?? Creatinine Level?? 10/14/22 08:00?? 0.61?? BUN/Creat Ratio?? 10/14/22 08:00?? 32.8 ??High?? eGFR CKD-EPI?? 10/14/22 08:00?? 99?? Calcium Level?? 10/14/22 08:00?? 8.7 ??Low?? Protein Total?? 10/14/22 08:00?? 7.6?? Albumin Level?? 10/14/22 08:00?? 4.0?? Globulin?? 10/14/22 08:00?? 3.6?? A/G Ratio?? 10/14/22 08:00?? 1.1?? Bilirubin Total?? 10/14/22 08:00?? 0.2?? Anion Gap?? 10/14/22 08:00?? 8.0?? Osmolality?? 10/14/22 08:00?? 271 ??Low? Cardiac Isoenzymes?? LATEST RESULTS?? Troponin-I?? 10/14/22 08:00?? 0.01? Electronically Signed on 10/14/22 09:18 AM Kaity Shah MD Emergency department Discharge instructions * Conchita STONE, Kar Parker: PERFORM Event Display: ED Discharge Information Authored Date: [id number] IRASEMA PANDA :1955 Age:67 years Sex:Female Visit Date:10/14/2022 Discharge Instructions We would like to thank you for allowing us to assist you with your healthcare needs. The following includes patient education materials and information regarding your injury/illness. Diagnosis from Today's Visit Viral respiratory infection Other viral agents as the cause of diseases classified elsewhere Discharge Vitals Temperature??(Temporal Artery) 97.7 ??F (36.5 ??C) Heart Rate??(Peripheral) 66 Respiratory Rate?? 16 Blood Pressure?? 129/88?? Height?? 61.00 in (154.940 cm) Weight??(Estimated) 102.03 lb (46.27 kg) Allergies tetracycline??(Hives) What to Do Next Instructions from Your Care Team Follow-up with??regular doctor??or return to ED for worsening??shortness of breath. ??Prednisone asprescribed. ??Continue??inhalers. You were treated today on an emergency [...] Emergency Department. Medications What How Much When Instructions Next Dose New predniSONE (predniSONE 10 mg oral tablet) See Instruction Oral (given by mouth) Every day 6 tabs daily x3 days, 4 tabs daily x3 days, 2 tabs daily x3 days, 1 tab daily x3 days ?? Pickup at [facility] Unchanged lisinopril (lisinopril 20 mg oral tablet) 1 tab Oral (given by mouth) Every day Unchanged phenytoin (Dilantin) 100 Milligrams Oral (given by mouth) 4 times a day Pharmacy Information [facility]: [address] [place], [place] [id number] [phone] Tests Performed Radiology XR Chest 1 View 10/14/2022 09:30 EDT Medications and Immunizations Administered Given ipratropium-albuterol 0.5 mg-2.5 mg/3 mL inhalation solution, 3 mL, NEB Lab Test Name Test Result Date/Time WBC 7.1 K/mcL 10/14/2022 08:00 EDT RBC 3.93 Million/mcL 10/14/2022 08:00 EDT Hgb 13.2 g/dL 10/14/2022 08:00 EDT Hct 39.9 % 10/14/2022 08:00 EDT MCV 101.5 fL 10/14/2022 08:00 EDT MCH 33.6 pg 10/14/2022 08:00 EDT MCHC 33.1 g/dL 10/14/2022 08:00 EDT RDW-CV 13.2 % 10/14/2022 08:00 EDT Platelets 189 K/mcL 10/14/2022 08:00 EDT MPV 9.2 fL 10/14/2022 08:00 EDT Segs Man 68 10/14/2022 08:00 EDT Lymph Man 29.0 % 10/14/2022 08:00 EDT [place] Man 3.0 % 10/14/2022 08:00 EDT Eos Man 0.00 % 10/14/2022 08:00 EDT Baso Man 0.0 % 10/14/2022 08:00 EDT Band Man 0 % 10/14/2022 08:00 EDT Abs Neut Man 4.8 K/mcL 10/14/2022 08:00 EDT Abs Lymph Man 2.1 K/mcL 10/14/2022 08:00 EDT Abs [place] Man 0.2 K/mcL 10/14/2022 08:00 EDT Abs Eos Man 0.0 K/mcL 10/14/2022 08:00 EDT Abs Baso Man 0.0 K/mcL 10/14/2022 08:00 EDT RBC Morph Normal 10/14/2022 08:00 EDT Plt Estimation Normal 10/14/2022 08:00 EDT Plt Large Few 10/14/2022 08:00 EDT Slide Review Man Diff 10/14/2022 08:00 EDT Sodium Level 134 mmol/L 10/14/2022 08:00 EDT Potassium Level 4.5 mmol/L 10/14/2022 08:00 EDT Chloride Level 95 mmol/L 10/14/2022 08:00 EDT CO2 31 mmol/L 10/14/2022 08:00 EDT Alk Phos 86 IntlUnit/L 10/14/2022 08:00 EDT AST 31 IntlUnit/L 10/14/2022 08:00 EDT ALT 23 IntlUnit/L 10/14/2022 08:00 EDT BUN 20 mg/dL 10/14/2022 08:00 EDT Glucose Level 110 mg/dL 10/14/2022 08:00 EDT Creatinine Level 0.61 mg/dL 10/14/2022 08:00 EDT BUN/Creat Ratio 32.8 10/14/2022 08:00 EDT eGFR CKD-EPI 99 mL/min/1.73 m2 10/14/2022 08:00 EDT Calcium Level 8.7 mg/dL 10/14/2022 08:00 EDT Protein Total 7.6 g/dL 10/14/2022 08:00 EDT Albumin Level 4.0 g/dL 10/14/2022 08:00 EDT Globulin 3.6 10/14/2022 08:00 EDT A/G Ratio 1.1 10/14/2022 08:00 EDT Bilirubin Total 0.2 mg/dL 10/14/2022 08:00 EDT Anion Gap 8.0 10/14/2022 08:00 EDT Osmolality 271 mOsm/kg 10/14/2022 08:00 EDT Troponin-I 0.01 ng/mL 10/14/2022 08:00 EDT Adenovirus RespP-BFire Not Detected BF 10/14/2022 08:00 EDT Bordetella parapertussis RespP-BFire Not Detect-[facility] 10/14/2022 08:00 EDT Bordetella pertussis RespP-BFire Not Detect-[facility] 10/14/2022 08:00 EDT Chlamydophila pneumoniae RespP-BFire Not Detect-[facility] 10/14/2022 08:00 EDT Coronavirus 229E (Not COVID-19) RP-BFire Not Detect-[facility] 10/14/2022 08:00 EDT Coronavirus HKU1 (Not COVID-19) RP-BFire Not Detect-[facility] 10/14/2022 08:00 EDT Coronavirus NL63 (Not COVID-19) RP-BFire Not Detect-[facility] 10/14/2022 08:00 EDT Coronavirus OC43 (Not COVID-19) RP-BFire Not Detect-[facility] 10/14/2022 08:00 EDT SARS-CoV-2 (COVID-19) RP-BFire Not Detect-[facility] 10/14/2022 08:00 EDT Human Metapneumonovirus RespP-BFire Not Detect-[facility] 10/14/2022 08:00 EDT Human Rhinovirus/Enterovirus RespP-BFir Not Detect-[facility] 10/14/2022 08:00 EDT Influenza A RespP-BFire Not Detect-[facility] 10/14/2022 08:00 EDT Influenza B RespP-BFire Not Detect-[facility] 10/14/2022 08:00 EDT Mycomplasma pneumoniae RespP-BFire Not Detect-[facility] 10/14/2022 08:00 EDT Parainfluenza Virus 1 RespP-BFire Not Detect-BioFire 10/14/2022 08:00 EDT Parainfluenza Virus 2 RespP-BFire Detect-[facility]Fire 10/14/2022 08:00 EDT Parainfluenza Virus 3 RespP-BFire Not Detect-[facility]Fire 10/14/2022 08:00 EDT Parainfluenza Virus 4 RespP-BFire Not Detect-[facility] 10/14/2022 08:00 EDT Respiratory Syncytial Virus RespP-BFire Not Detect-[facility] 10/14/2022 08:00 EDT 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 Unknown 10/14/2022 08:00 EDT Symptomatic as defined by CDC? Yes 10/14/2022 08:00 EDT Date of onset (Lab) 10/07/2022 10/14/2022 08:00 EDT Hospitalized due to COVID-19? Unknown 10/14/2022 08:00 EDT In ICU? Unknown 10/14/2022 08:00 EDT Group care resident? Unknown 10/14/2022 08:00 EDT status? Not 10/14/2022 08:00 EDT Patient/Server Support Technician Signature Patient Name:IRASEMA PANDA I have received this information and my questions have been answered. Patient/Server Support Technician Name: Patient/Server Support Technician Signature: Relationship to Patient: Witness Name/Signature: Date: Electronically Signed on: 10/14/2022 10:04 EDTSigned by:BREANNA Nutrition and dietetics Progress note * Lashae Cagle: PERFORM Event Display: Nutrition Note Authored Date: [id number] Assessment and Monitoring ? Nutrition Assessment: 67 yo F admit with SOB x 1 week.??Accepting regular diet so far. Treating for COPD exacerbation IV prednisone, labs noted. Skin intact. Has higher calorie needs??given COPD- so far ordering decent size meals and eating most, which is good to see.??BMI is??low for older adults.??can offer protein shakes prn- but seems like eating??enough at this time. Monitor and can offer shakes/high pro snacks/drinks as needed. ? Monitor/Evaluation:?? Nutrition Diagnosis increased calories needs r/t disease progression as evidenced by COPD exacerbation. Nutrition Goals POs >75% of meals labs WNL skin w.o open areas Nutrition Interventions Regular diet protein shakes/high zhang,pro snacks and beverages prn assist room service/ set up prn Anthropometrics/Estimated Needs Fsiysk92.270 kg(Recorded: 10/14/2022 16:13 EDT) Fusfbf086.940 cm(Recorded: 10/14/2022 16:13 EDT) Body Mass Index19.270 kg/m2(Recorded: 10/14/2022 16:13 EDT) Estimated Energy Needs: 1400-1610kcal (30-35kcal/kg actual BW) Estimated Fluid Needs: 1400-1610ml (1ml/kcal) Estimated Protein Needs: 46-60g (1.0-1.3g/kg actual BW) Reason for Visit Patient reports shortness of breath x 1 week. Patient's SpO2 was 82% on arrival, 94% on 1 LPM via NC. Problem List/Past Medical History Ongoing COPD exacerbation Historical No qualifying data Social History Electronic Cigarette/Vaping Electronic Cigarette Use: Never. Tobacco Former tobacco user Tobacco Use:. Diet Orders Diet Order, 10/14/22 10:17:00 EDT, Regular Allergies tetracycline??(Hives) Nutrition Lab Results Test Name Test Result Date/Time WBC 7.1 K/mcL 10/14/2022 08:00 EDT Hgb 13.2 g/dL 10/14/2022 08:00 EDT Hct 39.9 % 10/14/2022 08:00 EDT MCV 101.5 fL 10/14/2022 08:00 EDT Platelets 189 K/mcL 10/14/2022 08:00 EDT Sodium Level 134 mmol/L 10/14/2022 08:00 EDT Potassium Level 4.5 mmol/L 10/14/2022 08:00 EDT Chloride Level 95 mmol/L 10/14/2022 08:00 EDT CO2 31 mmol/L 10/14/2022 08:00 EDT Alk Phos 86 IntlUnit/L 10/14/2022 08:00 EDT ALT 23 IntlUnit/L 10/14/2022 08:00 EDT BUN 20 mg/dL 10/14/2022 08:00 EDT Glucose Level 110 mg/dL 10/14/2022 08:00 EDT Creatinine Level 0.61 mg/dL 10/14/2022 08:00 EDT Albumin Level 4.0 g/dL 10/14/2022 08:00 EDT Bilirubin Total 0.2 mg/dL 10/14/2022 08:00 EDT Medications Inpatient albuterol, 2.5 mg= 3 mL, NEB, Once, PRN albuterol, 1.25 mg= 3 mL, NEB, every 3 hr, PRN benzonatate, 100 mg= 1 cap, Oral, TID, PRN enoxaparin, 40 mg= 0.4 mL, Subcutaneous, every evening guaiFENesin, 1200 mg= 2 tab, Oral, BID ipratropium-albuterol 0.5 mg-2.5 mg/3 mL inhalation solution, 3 mL, NEB, every 6 hr lisinopril, 20 mg= 1 tab, Oral, Daily methylPREDNISolone, 40 mg= 0.64 mL, IV Push, every 6 hr (lashonda) phenytoin ER (DILANTIN) 100 mg, 1 cap, Oral, BID phenytoin ER (DILANTIN) 100 mg capsule, 2 cap, Oral, Daily Symbicort 80 mcg-4.5 mcg/inh inhalation aerosol, 2 puffs, Inhale, BID Home albuterol 90 mcg/inh aerosol inhaler, 2 puffs, Inhale, every 4 hr, PRN lisinopril 20 mg oral tablet, 20 mg= 1 tab, Oral, Daily phenytoin 100 mg oral capsule, extended release, 200 mg= 2 cap, Oral, Daily phenytoin 100 mg oral capsule, extended release, 100 mg= 1 cap, Oral, BID predniSONE 10 mg oral tablet, See Instruction, Oral, Daily Symbicort 80 mcg-4.5 mcg/inh inhalation aerosol, 2 puffs, Inhale, BID Electronically Signed on 10/15/22 03:05 PM Lashae Cagle Progress note * Lashae STONE, Jesse Michael: PERFORM Event Display: Progress Note - Physician Authored Date: [id number] IRASEMA PANDA :1955 Age:67 years Sex:Female Visit Date:10/14/2022 Subjective Still reports feeling fairly short of breath with a lot of coughing??and wheezing Review of Systems Nonproductive cough, shortness of breath no chest pain no fevers chills Objective Vitals & Measurements T:??36.8?C ??(Temporal Artery)?? TMIN:??36.8?C ??(Temporal Artery)?? TMAX:??37.7?C ??(Temporal Artery)?? HR:??71??(Peripheral)?? RR:??22?? BP:??134/68?? SpO2:??95%?? HT:??154.940??cm?? WT:??46.270??kg?? BMI:??19.270?? Pain Score:??0?? O2 Flow Rate:??2?? O2 Therapy:??Room air?? Physical Exam General:??Alert and oriented, well nourished, No acute distress Eye:??PERRL, EOMI, normal conjunctiva Lungs:??Lungs still fairly tight may be a bit less wheezing but also less air movement today non-labored respiration Heart:??Normal rate, Normal rhythm, No murmur, No gallop Abdomen:??Soft, non-tender, non-distended, normal bowel sounds, no masses Assessment/Plan 1.??Viral respiratory infection??J98.8 Parainfluenza infection, no antibiotics indicated 2.??COPD exacerbation??J44.1 With hypoxia, continue IV Solu-Medrol given she failed outpatient treatment,??on bronchodilators and Mucinex ?? Medications (11) Active Scheduled: (8) Albuterol-ipratropium Neb Larissa 3 mL [LTTL] ??3 mL, NEB, every 6 hr Budesonide-Formoterol 80 mcg Inhaler [LTTL] ??2 puffs, Inhale, BID Enoxaparin 40 mg/0.4 mL Inj Syr [LTTL] ??40 mg 0.4 mL, Subcutaneous, every evening Guaifenesin 600 mg ER Tab [LTTL] ??1,200 mg 2 tab, Oral, BID Lisinopril 20 mg Tab [LTTL] ??20 mg 1 tab, Oral, Daily MethylPREDNISol Sod Suc 125 mg /2 ml Inj Vial [LTTL] ??40 mg 0.64 mL, IV Push, every 6 hr (lashonda) phenytoin ER (DILANTIN) 100 mg ??1 cap, Oral, BID phenytoin ER (DILANTIN) 100 mg capsule ??2 cap, Oral, Daily Continuous: (0) PRN: (3) Albuterol ??1.25 mg/3 ml Neb Larissa 3 mL [LTTL] ??1.25 mg 3 mL, NEB, every 3 hr Albuterol ??2.5 mg/3 ml Neb Larissa 3 mL [LTTL] ??2.5 mg 3 mL, NEB, Once Benzonatate 100 mg Cap [LTTL] ??100 mg 1 cap, Oral, TID Orders: Symbicort 80 mcg-4.5 mcg/inh inhalation aerosol, 2 puffs, Inhale, Aerosol, BID, First Dose: 10/14/22 21:00:00 EDT, Routine lisinopril, 20 mg = 1 tab, Oral, Tab, Daily, First Dose: 10/15/22 9:00:00 EDT, Routine [facility], 10/15/22 14:40:00 EDT, 10/15/22 14:40:00 EDT, 10/15/22 14:40:00 EDT, 2 midnights or more Electronically Signed on 10/15/22 02:41 PM Jesse Bhardwaj MD History and physical note * Jesse Bhardwaj MD: PERFORM Event Display: History and Physical Authored Date: [id number] IRASEMA PANDA :1955 Age:67 years Sex:Female Visit Date:10/14/2022 Chief Complaint Patient reports shortness of breath x 1 week. Patient's SpO2 was 82% on arrival, 94% on 1 LPM via NC. History of Present Illness Female with extensive??smoking history presents with 1 week of shortness of breath??treated on outpatient basis with Z-Alonso and oral steroids without improvement. ??She comes in today??emergency department??with continued sob/coughing/wheezing??despite??treatment emergency department still has a room air sat while walking of 84 to 86%.?? She has no chest pain no severe fevers or other positive review of systems??but??the patient feels she is not quite able to??go home in her present state and will be admitted for IV??steroids, bronchodilators continue treatment for a viral parainfluenza virus??and oxygen.?? Also treatment for COPD exacerbation Review of Systems Constitutional:??No fevers, chills, sweats Eye:??No recent visual problems ENT:??No ear pain, nasal congestion, sore throat Cardiovascular:??No Chest pain, palpitations, syncope Gastrointestinal:??No nausea, vomiting, diarrhea Genitourinary:??No hematuria Musculoskeletal:??No back pain, neck pain, joint pain, muscle pain, decreased range of motion Integumentary:??No rash, pruritus, abrasions Neurologic:??Alert & oriented X 4 Psychiatric:??No anxiety, depression Physical Exam Vitals & Measurements T:??36.5?C ??(Temporal Artery)?? HR:??68??(Peripheral)?? RR:??16?? BP:??114/76?? SpO2:??99%?? HT:??154.940??cm?? WT:??46.27??kg??(Estimated)?? O2 Flow Rate:??2?? O2 Therapy:??Nasal cannula?? General:??Alert , well nourished, no acute distress Eye:??PERRL, EOMI, normal conjunctiva, normal scleral icterus HENT:??Normocephalic, moist oral mucos??a Neck:??Supple, non-tender, no palpable lymphadenopathy Lungs:??Bilateral rhonchorous sounds with some wheezing., non-labored respiration Heart:??Normal ??rate, ??normal rhythm, no murmur,??no??edema Abdomen:??Soft, non-tender, non-distended, ??normal bowel sounds, ??no masses Skin:??Skin is warm, dry and pink, ??no rashes, ??no lesions Neurologic:??Awake, alert and oriented X4, CN II-XII intact Psychiatric:??Cooperative, appropriate mood and affect Assessment/Plan 1.??Viral respiratory infection??J98.8 Viral parainfluenza??no evidence of bacterial infection??no antibiotics indicated 2.??COPD exacerbation??J44.1 COPD exacerbation with hypoxia??we will give oxygen bronchodilators and IV methylprednisone. ?? We will continue her home seizure Dilantin medications along with??DVT prophylaxis with Lovenox??she is a full care full code Orders: albuterol, 1.25 mg = 3 mL, NEB, Soln, every 3 hr, PRN shortness of breath, First Dose: 10/14/22 10:17:00 EDT, Routine benzonatate, 100 mg = 1 cap, Oral, Cap, TID, PRN cough, First Dose: 10/14/22 10:17:00 EDT, Routine enoxaparin, 40 mg = 0.4 mL, Subcutaneous, Injection, every evening, First Dose: 10/14/22 21:00:00 EDT, Routine guaiFENesin, 1,200 mg = 2 tab, Oral, Tab-ER, BID, First Dose: 10/14/22 11:00:00 EDT, Routine ipratropium-albuterol 0.5 mg-2.5 mg/3 mL inhalation solution, 3 mL, NEB, Soln, every 6 hr, First Dose: 10/14/22 14:00:00 EDT, Routine methylPREDNISolone, 40 mg = 0.64 mL, IV Push, Vial, every 6 hr (lashonda), First Dose: 10/14/22 17:00:00EDT, Routine phenytoin ER (DILANTIN) 100 mg, 1 cap, Oral, BID, First Dose: 10/14/22 12:00:00 EDT, Routine, Use Patient Supply phenytoin ER (DILANTIN) 100 mg capsule, 2 cap, Oral, Daily, First Dose: 10/15/22 6:30:00 EDT, Routine, Use Patient Supply Ambulate, 10/14/22 10:17:00 EDT, Constant order Diet Order, 10/14/22 10:17:00 EDT, Regular Incentive Spirometry Nursing, 10/14/22 10:17:00 EDT MOD/High risk VTE, 10/14/22 10:17:00 EDT, Mod/High risk, non surgical, no mechanical prophylaxis required Patient Condition, 10/14/22 10:17:00 EDT, Condition Good/ Stable PSO Place in Observation, Observation, Observation, 10/14/22 10:15:00 EDT, 10/14/22 10:15:00 EDT, 10/14/22 10:15:00 EDT, 1 midnight or less Resuscitation Status, 10/14/22 10:17:00 EDT, Full Code Vital Signs, 10/14/22 10:17:00 EDT, TID Problem List/Past Medical History Ongoing COPD exacerbation Historical No qualifying data Medications Inpatient albuterol, 2.5 mg= 3 mL, NEB, Once, PRN albuterol, 1.25 mg= 3 mL, NEB, every 3 hr, PRN benzonatate, 100 mg= 1 cap, Oral, TID, PRN enoxaparin, 40 mg= 0.4 mL, Subcutaneous, every evening guaiFENesin, 1200 mg= 2 tab, Oral, BID ipratropium-albuterol 0.5 mg-2.5 mg/3 mL inhalation solution, 3 mL, NEB, every 6 hr methylPREDNISolone, 40 mg= 0.64 mL, IV Push, every 6 hr (lashonda) phenytoin ER (DILANTIN) 100 mg, 1 cap, Oral, BID phenytoin ER (DILANTIN) 100 mg capsule, 2 cap, Oral, Daily Home Dilantin, 100 mg, Oral, QID lisinopril 20 mg oral tablet, 20 mg= 1 tab, Oral, Daily predniSONE 10 mg oral tablet, See Instruction, Oral, Daily Allergies tetracycline??(Hives) Social History Electronic Cigarette/Vaping Electronic Cigarette Use: Never. Tobacco Former tobacco user Tobacco Use:. Lab Results Test Name Test Result Date/Time WBC 7.1 K/mcL 10/14/2022 08:00 EDT RBC 3.93 Million/mcL 10/14/2022 08:00 EDT Hgb 13.2 g/dL 10/14/2022 08:00 EDT Hct 39.9 % 10/14/2022 08:00 EDT MCV 101.5 fL 10/14/2022 08:00 EDT MCH 33.6 pg 10/14/2022 08:00 EDT MCHC 33.1 g/dL 10/14/2022 08:00 EDT RDW-CV 13.2 % 10/14/2022 08:00 EDT Platelets 189 K/mcL 10/14/2022 08:00 EDT MPV 9.2 fL 10/14/2022 08:00 EDT Segs Man 68 10/14/2022 08:00 EDT Lymph Man 29.0 % 10/14/2022 08:00 EDT [place] Man 3.0 % 10/14/2022 08:00 EDT Eos Man 0.00 % 10/14/2022 08:00 EDT Baso Man 0.0 % 10/14/2022 08:00 EDT Band Man 0 % 10/14/2022 08:00 EDT Abs Neut Man 4.8 K/mcL 10/14/2022 08:00 EDT Abs Lymph Man 2.1 K/mcL 10/14/2022 08:00 EDT Abs [place] Man 0.2 K/mcL 10/14/2022 08:00 EDT Abs Eos Man 0.0 K/mcL 10/14/2022 08:00 EDT Abs Baso Man 0.0 K/mcL 10/14/2022 08:00 EDT RBC Morph Normal 10/14/2022 08:00 EDT Plt Estimation Normal 10/14/2022 08:00 EDT Plt Large Few 10/14/2022 08:00 EDT Slide Review Man Diff 10/14/2022 08:00 EDT Sodium Level 134 mmol/L 10/14/2022 08:00 EDT Potassium Level 4.5 mmol/L 10/14/2022 08:00 EDT Chloride Level 95 mmol/L 10/14/2022 08:00 EDT CO2 31 mmol/L 10/14/2022 08:00 EDT Alk Phos 86 IntlUnit/L 10/14/2022 08:00 EDT AST 31 IntlUnit/L 10/14/2022 08:00 EDT ALT 23 IntlUnit/L 10/14/2022 08:00 EDT BUN 20 mg/dL 10/14/2022 08:00 EDT Glucose Level 110 mg/dL 10/14/2022 08:00 EDT Creatinine Level 0.61 mg/dL 10/14/2022 08:00 EDT BUN/Creat Ratio 32.8 10/14/2022 08:00 EDT Calcium Level 8.7 mg/dL 10/14/2022 08:00 EDT Protein Total 7.6 g/dL 10/14/2022 08:00 EDT Albumin Level 4.0 g/dL 10/14/2022 08:00 EDT Globulin 3.6 10/14/2022 08:00 EDT A/G Ratio 1.1 10/14/2022 08:00 EDT Bilirubin Total 0.2 mg/dL 10/14/2022 08:00 EDT Anion Gap 8.0 10/14/2022 08:00 EDT Osmolality 271 mOsm/kg 10/14/2022 08:00 EDT eGFR CKD-EPI 99 mL/min/1.73 m2 10/14/2022 08:00 EDT Troponin-I 0.01 ng/mL 10/14/2022 08:00 EDT Adenovirus RespP-BFire Not Detected BF 10/14/2022 08:00 EDT Bordetella parapertussis RespP-BFire Not Detect-BioFire 10/14/2022 08:00 EDT Bordetella pertussis RespP-BFire Not Detect-BioFire 10/14/2022 08:00 EDT Chlamydophila pneumoniae RespP-BF[facility] Not Detect-BioFire 10/14/2022 08:00 EDT Coronavirus 229E (Not COVID-19) RP-BFire Not Detect-BioFire 10/14/2022 08:00 EDT Coronavirus HKU1 (Not COVID-19) RP-BFire Not Detect-BioFire 10/14/2022 08:00 EDT Coronavirus NL63 (Not COVID-19) RP-BFire Not Detect-BioFire 10/14/2022 08:00 EDT Coronavirus OC43 (Not COVID-19) RP-BFire Not Detect-BioFire 10/14/2022 08:00 EDT SARS-CoV-2 (COVID-19) RP-BFire Not Detect-BioFire 10/14/2022 08:00 EDT Human Metapneumonovirus RespP-BFire Not Detect-BioFire 10/14/2022 08:00 EDT Human Rhinovirus/Enterovirus RespP-[facility]ir Not Detect-BioFire 10/14/2022 08:00 EDT Influenza A [facility] Not Detect-BioFire 10/14/2022 08:00 EDT Influenza B [facility] Not Detect-BioFire 10/14/2022 08:00 EDT Mycomplasma pneumoniae RespP[facility] Not Detect-[facility]Fire 10/14/2022 08:00 EDT Parainfluenza Virus 1 RespP[facility] Not Detect-BioFire 10/14/2022 08:00 EDT Parainfluenza Virus 2 RespP-[facility] Detect-BioFire 10/14/2022 08:00 EDT Parainfluenza Virus 3 RespP-[facility]ire Not Detect-BioFire 10/14/2022 08:00 EDT Parainfluenza Virus 4 RespP[facility] Not Detect-BioFire 10/14/2022 08:00 EDT Respiratory Syncytial Virus RespP-[facility] Not Detect-BioFire 10/14/2022 08:00 EDT 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 Unknown 10/14/2022 08:00 EDT Symptomatic as defined by CDC? Yes 10/14/2022 08:00 EDT Date of onset (Lab) 10/07/2022 10/14/2022 08:00 EDT Hospitalized due to COVID-19? Unknown 10/14/2022 08:00 EDT In ICU? Unknown 10/14/2022 08:00 EDT Group care resident? Unknown 10/14/2022 08:00 EDT status? Not 10/14/2022 08:00 EDT Electronically Signed on 10/14/22 01:24 PM Jesse Bhardwaj MD Discharge summary * Jesse Bhardwaj MD: PERFORM Event Display: Discharge Summary Authored Date: [id number] IRASEMA PANDA :1955 Age:67 years Sex:Female Visit Date:10/14/2022 Hospital Course 67-year-old female with more than 83-ljcm-cxdg history of smoking quit recently, with clinical evidence of COPD??presented with hypoxia wheezing in the setting of a para??influenza infection with??[id number]. ??She was treated with IV steroids??her lungs are starting to open up??and she is breathing better today than the previous days??but her walking room air sats are still at 85%??and she will go home with 2 L continuous oxygen for COPD??exacerbation??and continue treatment as described below. Physical Exam Vitals & Measurements T:??36.2?C ??(Temporal Artery)?? TMIN:??36.2?C ??(Temporal Artery)?? TMAX:??36.8?C ??(Temporal Artery)?? HR:??74??(Peripheral)?? RR:??18?? BP:??142/77?? SpO2:??93%?? Pain Score:??0?? O2 Flow Rate:??2?? O2 Therapy:??Nasal cannula?? General:??Alert and oriented, well nourished, No acute distress Eye:??PERRL, EOMI, normal conjunctiva Lungs:??Clear to auscultation and percussion, Non-labored respiration Heart:??Normal rate, Normal rhythm, No murmur, No gallop Abdomen:??Soft, non-tender, non-distended, normal bowel sounds, no masses Medications Inpatient albuterol, 2.5 mg= 3 mL, NEB, Once, PRN albuterol, 1.25 mg= 3 mL, NEB, every 3 hr, PRN benzonatate, 100 mg= 1 cap, Oral, TID, PRN enoxaparin, 40 mg= 0.4 mL, Subcutaneous, every evening guaiFENesin, 1200 mg= 2 tab, Oral, BID ipratropium-albuterol 0.5 mg-2.5 mg/3 mL inhalation solution, 3 mL, NEB, every 6 hr lisinopril, 20 mg= 1 tab, Oral, Daily methylPREDNISolone, 40 mg= 0.64 mL, IV Push, every 6 hr ([facility]) phenytoin ER (DILANTIN) 100 mg, 1 cap, Oral, BID phenytoin ER (DILANTIN) 100 mg capsule, 2 cap, Oral, Daily Symbicort 80 mcg-4.5 mcg/inh inhalation aerosol, 2 puffs, Inhale, BID Home albuterol 90 mcg/inh aerosol inhaler, 2 puffs, Inhale, every 4 hr, PRN lisinopril 20 mg oral tablet, 20 mg= 1 tab, Oral, Daily phenytoin 100 mg oral capsule, extended release, 200 mg= 2 cap, Oral, Daily phenytoin 100 mg oral capsule, extended release, 100 mg= 1 cap, Oral, BID predniSONE 10 mg oral tablet, See Instruction, Oral, Daily Symbicort 80 mcg-4.5 mcg/inh inhalation aerosol, 2 puffs, Inhale, BID Social History Electronic Cigarette/Vaping Electronic Cigarette Use: Never. Tobacco Former tobacco user Tobacco Use:. Diagnostic Results X-Ray: ?? XR Chest 1 View ?? 10/14/22 07:46:17 PROCEDURE INFORMATION: Exam: XR Chest Exam date and time: 10/14/2022 7:46 AM Age: 67 years old Clinical indication: Shortness of breath; cough ?? TECHNIQUE: Imaging protocol: Radiologic exam of the chest. Views: 1 view. ?? COMPARISON: CR XR CHEST, 2 VIEWS 05/31/2018 11:48 AM ?? FINDINGS: Lungs: No pulmonary vascular congestion, pulmonary edema or pneumonia. Pleural spaces: No pleural effusion or pneumothorax. Heart/Mediastinum: The cardiac silhouette is not enlarged. The mediastinal contours are normal. Vasculature: The aorta is atherosclerotic. Bones/joints: No acute osseous abnormality. Soft tissues: Skin folds project over both mark thoraces, more so on the right. ?? IMPRESSION: No acute finding. ? THIS DOCUMENT HAS BEEN ELECTRONICALLY SIGNED BY DEJUAN MOON MD on 10/14/2022 09:30 AM ?? Signed By: Dejuan Moon MD Computed Tomography:?? Ultrasound:?? MRI:?? Echo:?? Mammography:?? Position Emission Tomography (PET):?? Discharge Plan 1.??Viral respiratory infection??J98.8 Parainfluenza positive, had been on a Z-Alonso at home prior to this no further??antibiotics indicated.?? I have told her numerous times that??this viral infection this year is lingering longer than others??and not to expect??to feel immediately better??for quite some time. Ordered: Discharge Patient, 10/16/22 10:17:00 EDT ?? 2.??COPD exacerbation??J44.1 She has??primary care follow-up in 2 days??and from there they can arrange formal??spirometry??evaluation when she is feeling a little better??but with her smoking history and exam and findings??suspect COPD exacerbation here and she will go home with??oxygen 2 L continuous??for now as her walking room air sat is still 85%.?? She has prednisone to finish as well as a taper??while she was here shereceived IV Solu-Medrol.?? She also has an albuterol inhaler at home as well With her wheezing and bronchospasms??and clinical findings at??this point no??evidence of pulmonaryembolus as the cause of her hypoxia given her??COPD wheezing and viral infection Ordered: Discharge Patient, 10/16/22 10:17:00 EDT ?? Orders: PSO Admit to Inpatient, Medr, Inpatient, 10/15/22 14:40:00 EDT, 10/15/22 14:40:00 EDT, 10/15/22 14:40:00 EDT, 2 midnights or more All Diagnoses This Visit Viral respiratory infection COPD exacerbation Patient Instructions You can check your pulse oximeter from time to time and if you are sustaining above 88% while walking then you no longer need the oxygen Patient Education Viral Respiratory Infection Follow Up With When Contact Information Follow up with primary care provider Within 1 month Additional Instructions: Medication Reconciliation Unchanged albuterol (albuterol [...] 1 tab daily x3 days. Refills: 0. Electronically Signed on 10/16/22 10:26 AM Lashae STONE, Jesse Michael XR Chest Single view * Dejuan Moon MD: VERIFY, VERIFY Event Display: Report PROCEDURE INFORMATION: Exam: XR Chest Exam date and time: 10/14/2022 7:46 AM Age: 67 years old Clinical indication: Shortness of breath; cough TECHNIQUE: Imaging protocol: Radiologic exam of the chest. Views: 1 view. COMPARISON: CR XR CHEST, 2 VIEWS 05/31/2018 11:48 AM FINDINGS: Lungs: No pulmonary vascular congestion, pulmonary edema or pneumonia. Pleural spaces: No pleural effusion or pneumothorax. Heart/Mediastinum: The cardiac silhouette is not enlarged. The mediastinal contours are normal. Vasculature: The aorta is atherosclerotic. Bones/joints: No acute osseous abnormality. Soft tissues: Skin folds project over both mark thoraces, more so on the right. IMPRESSION: No acute finding. THIS DOCUMENT HAS BEEN ELECTRONICALLY SIGNED BY DEJUAN MOON MD on 10/14/2022 09:30 AM Final Signed by: Dejuan Moon MD Signed (Electronic Signature): 10/14/2022 9:30 am Patient Care team information Care Team Personnel Name: Kaity Shah MD Position: Physician Member Role: ED Physician Address: Address: [address] [place] [id number] Name: Wendy Sales Position: Nurse Member Role: ED Nurse
[2022-11-19] MEDS: Albuterol HFA 18 GM 200 PUFF INH IH (08:58)
[2022-11-19] MEDS: Inhaler, Assist Device 1 EACH MC (08:59)
--- NOTE | 2022-11-19 09:13 | W.PFT ---
Date of service: 11/19/22 Time of Service: 08:13 Pulmonary Function Test Result Indications: YA Interpretation Spirometry: There is moderate-severe airflow limitation. No significant bronchodilator response. Impression Moderate - severe airflow obstruction. Clinical Correlation therefore is recommended.
--- NOTE | 2022-11-19 09:30 | W.6MWT ---
Date of service: 11/19/22 Time of Service: 08:03 6 Minute Walk Test Note: 6 Minute Walk Test Distance walked:1400 ft Desaturations: From 90% to 86% at 2 minutes 3 seconds. 1LPM increased SpO2 to 88-89% Heart rate changes: 91bpm to 104bpm Recommendation: Exertional supplemental O2 at 1LPM. Judy Elizalde MD Pulmonary & Critical Care Medicine
== END 2022-11-19 02:23 | disposition home or self-care (01) ==
LOC: RT 02:22
PROVIDERS: PCP Nurse Practitioner; Visit Provider Nurse Practitioner
DX: J43.9 Emphysema, unspecified (principal); J96.91 Respiratory failure, unspecified with hypoxia; R06.09 Other forms of dyspnea
CPT/HCPCS: 94060; 94618; 94762

== ENCOUNTER → 2022-12-15 14:11 | Outpatient (CLI) | payer OTHER, SELFPAY ==
--- NOTE | 2022-12-15 11:45 | DI.RAD_ITS ---
Exam(s) XR THUMB LT EXAM: XR THUMB LT CLINICAL HISTORY: Pain in LT Thumb--M79.645. TECHNIQUE: 2D digital imaging was performed. Three views. COMPARISON: None. FINDINGS: BONES: No acute fracture is present. No bony destructive lesion is seen. There is deformity of the d istal aspect of the proximal phalanx of the thumb. There is a prominent dorsal spur, near the interp halangeal joint. JOINTS: No dislocation present. Mild degenerative changes of the interphalangeal joints of the thumb . SOFT TISSUE: Normal. No foreign body. IMPRESSION: Prominent spur at the dorsal aspect of the proximal phalanx of the thumb. DATA REPOSITORY: RADIATION DOSE DELIVERED:
--- OUTSIDE RECORDS SUMMARY | 2022-12-15 14:14 | XMS_ITS | CCD ---
Author Name Unknown Address [address] [place] [address] [id number] Organization Unknown Address [address] [place] [address] [id number] Care Team Providers Care Hydrate Control Tender Name Role Phone KEVON CORCORAN Attending Physician [phone] Vital Signs Unknown or Not Available. Allergies Unknown or Not Available. Procedures Unknown or Not Available. History of Immunizations Unknown or Not Available. Problems Unknown or Not Available. Results Unknown or Not Available. Active Medications Unknown or Not Available. Medications Administered During Visit Unknown or Not Available. Encounters Unknown or Not Available. Social History Unknown or Not Available. Patient Decision Aids Unknown or Not Available. Discharge Instructions You were admitted to [facility] on 07/05/2022 10:42 You were discharged from [facility] Should you have any questions prior to discharge, please contact a member of your healthcare team. If you have left the hospital and have any questions, please contact your primary care physician. Chief Complaint and Reason For Visit Unknown or Not Available. Function Status Unknown or Not Available. Plan of Care Unknown or Not Available. Referral/Transition of Care Unknown or Not Available.
== END ==
PROVIDERS: PCP Nurse Practitioner; Visit Provider Nurse Practitioner Family
DX: M25.742 Osteophyte, left hand (principal); M18.12 Unilateral primary osteoarthritis of first carpometacarpal joint, left hand
CPT/HCPCS: 73140

== ENCOUNTER 2023-12-22 02:17 | Outpatient (CLI) | payer BC, SELFPAY ==
--- NOTE | 2023-12-22 08:49 | DI.RAD_ITS ---
Exam(s) XR FOOT LT COMPLETE EXAM: XR FOOT LT COMPLETE CLINICAL HISTORY: Left heel pain,lt foot pain,m79.672. TECHNIQUE: 2D digital imaging was performed. Three views. COMPARISON: CR XR FOOT RT COMPLETE from 12/22/2023 FINDINGS: BONES: No acute fracture is present. No bony destructive lesion is seen. Benign-appearing cyst in t he navicular. JOINTS: No dislocation present. Minimal degenerative changes. SOFT TISSUE: Normal. IMPRESSION: No acute abnormality. DATA REPOSITORY: RADIATION DOSE DELIVERED:
--- NOTE | 2023-12-22 08:49 | DI.RAD_ITS ---
Exam(s) XR FOOT RT COMPLETE EXAM: XR FOOT RT COMPLETE CLINICAL HISTORY: Right heel pain,rt foot pain,m79.671. TECHNIQUE: 2D digital imaging was performed. Three views. COMPARISON: CR XR FOOT LT COMPLETE from 12/22/2023 FINDINGS: BONES: No acute fracture is present. No bony destructive lesion is seen. First metatarsal head bunio nectomy. Small ossicles adjacent to the cuboid. JOINTS: No dislocation present. Minimal degenerative changes. Plantar arch is maintained. SOFT TISSUE: Normal. IMPRESSION: Postsurgical changes the medial 1st metatarsal head. No acute abnormality. DATA REPOSITORY: RADIATION DOSE DELIVERED:
== END 2023-12-22 02:37 ==
PROVIDERS: PCP Nurse Practitioner; Visit Provider Podiatrist
DX: M79.672 Pain in left foot (principal); M79.671 Pain in right foot
CPT/HCPCS: 73630

== ENCOUNTER 2024-06-05 10:42 | Outpatient (CLI) | payer BC, SELFPAY ==
--- NOTE | 2024-06-05 10:41 | DI.RAD_ITS ---
Exam(s) XR KNEE LT 3V AP,LAT,INGA EXAM: XR KNEE LT 3V AP,LAT,INGA CLINICAL HISTORY: pain mike knee, M25.561, M25.562. TECHNIQUE: 2D digital imaging was performed of the left knee. Three images were obtained. AP, late ral and PA tunnel views were obtained. COMPARISON: CR XR KNEE RT 3V AP,LAT,INGA from 06/05/2024 FINDINGS: BONES: No acute fracture is present. No bony destructive lesion is seen. JOINTS: The knee is normally aligned. There is chondrocalcinosis present. This can be seen with CPPD arthropathy. There is a small joint effusion. No loose body. SOFT TISSUE: Extensive atherosclerotic calcification is present. IMPRESSION: 1. Chondrocalcinosis which can be seen with CPPD arthropathy. 2. Small joint effusion. 3. Extensive atherosclerotic calcification. DATA REPOSITORY: RADIATION DOSE DELIVERED:
--- NOTE | 2024-06-05 10:41 | DI.RAD_ITS ---
Exam(s) XR KNEE RT 3V AP,LAT,INGA EXAM: XR KNEE RT 3V AP,LAT,INGA CLINICAL HISTORY: pain mike knee, M25.561, M25.562. TECHNIQUE: 2D digital imaging was performed of the right knee. Three views obtained. AP, lateral an d PA tunnel views were obtained. COMPARISON: CR XR KNEE RT 3V AP,LAT,INGA from 09/09/2022 FINDINGS: BONES: No acute fracture is present. No bony destructive lesion is seen. JOINTS: The knee is normally aligned. There is chondrocalcinosis which can be seen with CPPD arthropa thy. There is a small joint effusion. SOFT TISSUE: There is extensive atherosclerotic calcification present. IMPRESSION: 1. Chondrocalcinosis which can be seen with CPPD arthropathy. 2. Small joint effusion. 3. Extensive atherosclerotic calcification. DATA REPOSITORY: RADIATION DOSE DELIVERED:
== END 2024-06-05 11:02 ==
PROVIDERS: PCP Nurse Practitioner; Visit Provider Nurse Practitioner
DX: M11.161 Familial chondrocalcinosis, right knee (principal); M11.162 Familial chondrocalcinosis, left knee
CPT/HCPCS: 73562

== ENCOUNTER 2024-07-13 09:56 | Outpatient (REF) | payer BC, SELFPAY ==
[2024-07-16 23:55] LABS: Calprotectin <50.0 mcg/g
== END 2024-07-13 09:57 | disposition home or self-care (01) ==
LOC: LBN 09:56
PROVIDERS: PCP Nurse Practitioner; Visit Provider Nurse Practitioner Adult Health
DX: R19.7 Diarrhea, unspecified (principal)
CPT/HCPCS: 83993

== ENCOUNTER 2025-03-29 11:38 | Outpatient (CLI) | payer OTHER, SELFPAY ==
[2025-03-29 09:37] LABS: Abs Immature Grans 0.02 10^3/uL (0.0-0.06); HCT 40.6 % (36.0-46.0); HGB 13.7 g/dL (11.2-15.7); Immature Grans % 0.3 %; MCH 33.1 pg (27.0-33.0); MCHC 33.7 % (32.0-36.0); MCV 98 fL (80-95); MPV 8.7 fL (8.0-11.0); Platelet Count 218 10^3/uL (130-400); RBC 4.14 10^6/uL (3.93-5.22); RDW 12.5 % (11.7-14.6); RDW-SD 44.9 fL; WBC 6.91 10^3/uL (4.4-10.8)
[2025-03-29 10:33] LABS: ALT 24 U/L (10-49); AST 27 U/L (<34); Albumin 4.7 g/dL (3.2-5.0); Alkaline Phosphatase 79 U/L (46-116); Anion Gap 7.5 mmol/L (3-11); BUN 23 mg/dL (9-23); Bilirubin, Total 0.50 mg/dL (0.2-1.2); CO2 30.6 mmol/L (20.0-31.0); Calcium 9.4 mg/dL (8.3-10.6); Chloride 99 mmol/L (98-107); Cholesterol 209 mg/dL (<200); Glucose 105 mg/dL (74-106); HDL Cholesterol 100 mg/dL (>40); Potassium 4.9 mmol/L (3.5-5.1); Sodium 137 mmol/L (136-145); Total Protein 7.4 g/dL (5.7-8.2)
== END 2025-03-29 11:39 | disposition home or self-care (01) ==
LOC: LBO 11:38
DX: I10 Essential (primary) hypertension (principal); J44.9 Chronic obstructive pulmonary disease, unspecified; Z13.220 Encounter for screening for lipoid disorders; R89.2 Abnormal level of other drugs, medicaments and biological substances in specimens from other organs, systems and tissues
CPT/HCPCS: 36415; 80053; 80061; 80185; 85025

== ENCOUNTER 2025-04-26 23:05 | Outpatient (CLI) | payer OTHER, SELFPAY ==
[2025-04-26 16:33] LABS: Abs Immature Grans 0.03 10^3/uL (0.0-0.06); HCT 37.0 % (36.0-46.0); HGB 12.3 g/dL (11.2-15.7); Immature Grans % 0.3 %; MCH 32.5 pg (27.0-33.0); MCHC 33.2 % (32.0-36.0); MCV 98 fL (80-95); MPV 8.9 fL (8.0-11.0); Platelet Count 252 10^3/uL (130-400); RBC 3.79 10^6/uL (3.93-5.22); RDW 12.7 % (11.7-14.6); RDW-SD 45.3 fL; WBC 8.71 10^3/uL (4.4-10.8)
[2025-04-26 16:55] LABS: C-Reactive Protein 0.83 mg/dL (<=0.50)
== END 2025-04-26 23:06 | disposition home or self-care (01) ==
LOC: LBO 23:05
PROVIDERS: Visit Provider Family Medicine
DX: M79.672 Pain in left foot (principal)
CPT/HCPCS: 36415; 85025; 86140

== ENCOUNTER → 2025-04-26 23:05 | Outpatient (CLI) | payer OTHER, SELFPAY ==
--- NOTE | 2025-04-26 16:00 | DI.RAD_ITS ---
Exam(s) XR FOOT LT COMPLETE EXAM: XR FOOT LT COMPLETE CLINICAL HISTORY: M79.672 Pain LT foot, Evaluate for osteomyelitis. TECHNIQUE: 2D digital imaging was performed. COMPARISON: CR XR FOOT LT COMPLETE from 12/22/2023 FINDINGS: 3 views No evidence of fracture or diastasis of the Lisfranc joint. Bone density is normal. A benign appearing nonexpansile cyst in the navicular bone is unchanged from prior images of 12/22/2023 No pes planus. Mild vascular calcifications noted. There is no evidence of osteomyelitis. There is no gas in soft tissues. Mild hallux valgus noted. IMPRESSION: No acute osseous findings. No radiographic evidence of osteomyelitis, as per request. DATA REPOSITORY: RADIATION DOSE DELIVERED:
== END ==
LOC: DI 23:05
PROVIDERS: Visit Provider Family Medicine
DX: M79.672 Pain in left foot (principal)
CPT/HCPCS: 73630